=== PATIENT | female | born 1940 | race Caucasian/White ===

== ENCOUNTER 2017-09-12 14:36 | Emergency (ER) | payer MEDICARE, OTHER ==
[~2017-09-12] VITALS: Ht 170.2 cm; Wt 69.8 kg
[~2017-09-12 14:36] MED LIST: ALLEGRA-D 12 HOU1 EA PO; CYCLOBENZAPRINE5 MG PO; CYMBALTA20 MG PO; CYMBALTA60 MG PO; DOMPERIDONE PO; ESTROGEN; HCTZ/TRIAMTERENE; LORAZEPAM1 MG PO; METOPROLOL TART25 MG PO; NEXIUM20 MG PO; NORCO 5-325 TA1 EACH PO; OMEGA-31000 MG PO; PAIN MED; VOLTAREN-XR100 MG PO; ZANTAC 7575 MG PO; ZANTAC150 MG PO
--- NOTE | 2017-09-13 21:54 | EKG ---
[facility] [address] [facility] [place] [address] Signed Poor data quality, interpretation may be adversely affected Normal ECG When compared with ECG of 09-SEP-2016 20:47, Vent. rate has decreased BY 49 BPM Minimal criteria for Anterior infarct are no longer present ST no longer depressed in Anterior leads Confirmed by MARIYA RAMOS MD ([id number]) on 09/13/2017 9:54:01 PM Electronically Signed By: MARIYA RAMOS MD 09/13/17 2154 PATIENT NAME: NATHAN DURÁN Electrocardiogram DATE OF : 40 PHYSICIAN: MARIYA RAMOS MD REPORT #: [id number] REPORT IS CONFIDENTIAL AND NOT TO BE RELEASED WITHOUT AUTHORIZATION
== END 2017-09-12 17:52 | disposition home or self-care (01) ==
LOC: ED 14:36
DX: R55 Syncope and collapse (principal); K21.9 Gastro-esophageal reflux disease without esophagitis; F32.9 Major depressive disorder, single episode, unspecified; F41.9 Anxiety disorder, unspecified; Z88.1 Allergy status to other antibiotic agents; Z88.2 Allergy status to sulfonamides; Z88.5 Allergy status to narcotic agent; Z79.899 Other long term (current) drug therapy
CPT/HCPCS: 71045; 80053; 81001; 84484; 85025; 93005; 93010; 96360; 96361; 99284; J7120

== ENCOUNTER 2017-10-05 11:31 | Emergency (ER) | payer MEDICARE, OTHER ==
[~2017-10-05] VITALS: Ht 170.2 cm; Wt 69.8 kg
== END 2017-10-05 12:15 | disposition home or self-care (01) ==
LOC: ED 11:31
DX: R47.02 Dysphasia (principal); K21.9 Gastro-esophageal reflux disease without esophagitis; Z88.1 Allergy status to other antibiotic agents; Z88.2 Allergy status to sulfonamides; Z88.5 Allergy status to narcotic agent; Z79.899 Other long term (current) drug therapy
CPT/HCPCS: 99283

== ENCOUNTER 2018-09-07 06:20 | Day surgery (SDC) | payer MEDICARE, OTHER ==
[~2018-09-07] VITALS: Ht 170.2 cm; Wt 70.3 kg
--- NOTE | ~2018-09-07 | OR ---
[facility] [address] [place], [place] [address] Draft DATE OF OPERATION: 09/07/2018 SURGEON: Lucas Miller MD PREOPERATIVE DIAGNOSIS: Right medial infiltrating ductal breast cancer, ER/MO positive. POSTOPERATIVE DIAGNOSES: 1. Right medial infiltrating ductal breast cancer, ER/MO positive. 2. [place] lymph node negative by frozen pathology. PROCEDURES PERFORMED: 1. Injection of methylene blue dye for sentinel lymph node identification, right breast. 2. Right deep axillary sentinel lymph node biopsy. 3. Right medial partial mastectomy with needle localization technique. ANESTHESIA: General LMA; Lucas Moody CRNA. INDICATION: This 78-year-old white woman is a patient of Dr. Santos and recently evaluated by Dr. Edilia Ferreira. She is the mother of a former worker in [employer] (Shanika). The patient is known to have breast cyst for a number of years. She has undergone bilateral breast reduction (reduction mammoplasty). She has had a biopsy or excision of cysts of the breast in the in [place]. She recently underwent mammogram showing an abnormality in the medial aspect of the right breast. Ultrasound performed and core biopsy confirmed infiltrating ductal carcinoma, ER/MO positive, HER-2/olivia pending. She has been presented her options of management and she wishes to proceed with a conservative approach including partial mastectomy, sentinel lymph node biopsy, possible axillary dissection and subsequent radiation therapy. She understands risks of bleeding, infection, failure to completely excise the lesion, and other unforeseen complications. She wishes to proceed. FINDINGS: Good uptake of radionuclide tracer to a single relatively large right axillary node was noted. There is only slight uptake of blue dye to the area surprisingly. Additionally, it was surprising there was essentially no other uptake, rather regional lymph nodes in the right axilla. PATIENT NAME: NATHAN DURÁN OPERATIVE REPORT DATE OF : 40 REPORT #: [id number] PHYSICIAN: LUCAS MILLER MD PCP: JOANA SANTOS DO REPORT IS CONFIDENTIAL AND NOT TO BE RELEASED WITHOUT AUTHORIZATION [facility] [address] [place], [place] [address] Draft As regards to primary lesion, it was in the medial portion of the right breast and was located with wide excision of the localizing wire and confirmed on specimen radiograph and specimen ultrasound to have the offending lesion well excised. DESCRIPTION OF PROCEDURE: The patient was brought to the operating room after being received from radiology suite with a localizing wire emanating from the inferior aspect of the right breast in the previous incision site. She was given a general anesthetic and preoperative antibiotics including clindamycin. Sequential compression device stockings and heparin subcutaneously administered. Interrogation of the axilla and breast tissue with a C-Trak Gamma Probe showed strong uptake at the areolar area as would be expected but also intensely in one focus of the right axilla. Comparison to imaging studies confirmed this to be the area of sentinel lymph node of course. 1.5 mL of 50% diluted methylene blue dye was injected in the subepithelial space in the right periareolar margin. The breast was then prepared with a Betadine spray solution after trimming the localizing wire to a shorter length. After sterile draping, the gamma probe was placed in a sterile cover and the area of maximum uptake determined in the right axilla. A small transverse incision was made there and dissection carried through the dermis with electrocautery. Blunt dissection was undertaken ultimately using [facility] retractors to better visualize the axilla through the small incision. The gamma probe was placed once again into the depths of the axilla showing strong uptake. Dissection proceeded with use of a tonsil clamp. There was no strong uptake of methylene blue dye despite its administration previously, but the gamma probe certainly allow for good visualization of the tissue in question. The specimen in the depths of the axilla was grasped with Allis clamp and dissected free with electrocautery. Once extracted interrogated with the gamma probe showing intense uptake and the dissection of the fatty tissue surrounding was and small lists of blue dye were also noted associated with the node. The node was about 1.5 cm in size. The sent for frozen pathology. Interrogation of the right axilla was undertaken again. There was essentially no radio nuclear uptake at this point. Irrigation was undertaken and the wound was then packed with gauze. Attention was then turned towards the primary breast tumor in the medial aspect of the right breast. The wire emanated from the medial aspect in a previous inframammary scar. With various manipulations, the extent of the wire in its medial aspect could be defined. The previous scar was used in the medial portion and flaps elevated superiorly and medially and the wire delivered into the wound. The parenchyma of the breast was grasped with an Allis clamp and electrocautery was used to excise the breast tissue with all due care and with generous margins to provide a negative margin for the lesion in question. Once excised. Palpation of the lesion of the specimen did show the lesion to be associated with the. The specimen was appropriately marked for PATIENT NAME: NATHAN DURÁN OPERATIVE REPORT DATE OF : 40 REPORT #: [id number] PHYSICIAN: LUCAS MILLER MD PCP: JOANA SANTOS DO REPORT IS CONFIDENTIAL AND NOT TO BE RELEASED WITHOUT AUTHORIZATION [facility] [address] [place], [place] [address] Draft orientation as well. Irrigation was undertaken in the wound. Some additional thick tissue over the pectoralis was excised as well as additional tissue in the medial superior aspect. Sterile water was used for irrigation. Minimal bleeding was noted. Notably, the parenchyma of the breast was rather firm and fibrous. No doubt related to prior breast reduction. The parenchyma was reapproximated with interrupted 2-0 Vicryl. Skin ultimately closed with a running subcuticular 3-0 Vicryl. At this point, the frozen pathology of the sentinel lymph node was determined by Dr. Zaid Blair to be negative of metastatic disease. Evaluation of the axilla showed no sign of bleeding. The wound was closed in layers with interrupted 2-0 Vicryl and a running subcuticular 3-0 Vicryl for the skin. Steri-Strips were applied to both incisions as was Mepilex silver sponge dressing and an OpSite. The patient tolerated the procedure well, was ultimately extubated and transferred to recovery room in good condition and suffered no complication. COUNTS: Sponge, needle, and instruments counts reported as correct x3. BLOOD LOSS: Well less than 20 mL. MD MARTINE Gregg/TRACI /[id number] Copies: ~ PATIENT NAME: NATHAN DURÁN OPERATIVE REPORT DATE OF : 40 REPORT #: [id number] PHYSICIAN: LUCAS MILLER MD PCP: JOANA SANTOS DO REPORT IS CONFIDENTIAL AND NOT TO BE RELEASED WITHOUT AUTHORIZATION
[~2018-09-07 06:20] MED LIST changes: +DICYCLOMINE HCL10 MG PO
[2018-09-07] MEDS ORDERED: IMODIUM A-D2 M2 PO ×2 (06:36→06:38)
--- NOTE | 2018-09-07 07:07 | NUR ---
3156 PT COMPLAINS OF NASAL CONGESTION AND DRAINAGE. REPORTS HAVING CONGESTION AND DRAINAGE FOR 3 WEEKS BUT IS FEELING BETTER TODAY. LUNGS CLEAR TO AUSCULTATION. DENIES CHEST PAIN.
--- NOTE | 2018-09-07 07:10 | NUR ---
0700 CONGESTION REPORTED TO ANESTHESIA
--- NOTE | 2018-09-07 10:32 | NUR ---
0515 PT BACK FROM RADIOLOGY TOLERATED WELL HELPED BACK IN BED. CALL LIGHT WITH IN REACH.
--- NOTE | 2018-09-07 10:32 | NUR ---
0730 PT TAKEN TO RADIOLOGY DEPT BY Aunt Kitchen VIA WHEELCHAIR.
--- NOTE | 2018-09-07 13:01 | NUR ---
09/07/18 1300 Sheets,Gilda 1253 PT ARRIVED TO PACU ON 6L VIA MASK, RESP EVEN AND UNLABORED. PT REACTIVE TO TACTILE STIMULI, PT UNABLE TO ANSWER QUESTIONS OR FOLLOW COMMANDS. PT RESTING IN BED WITH NO MOANING OR GRIMACING AT THIS TIME.
[2018-09-07] MEDS ORDERED: TYLENOL325 MG PO (13:16)
[2018-09-07] MEDS ORDERED: OXYCODON-ACETA1 EAC2 PO (13:16)
[2018-09-07] MEDS ORDERED: IBUPROFEN600 MG PO (13:16)
--- NOTE | 2018-09-07 14:27 | NUR ---
1405 PT BACK TO ROOM FROM PACU AWAKE AND TALKING. REPORTS PAIN 2/10 REPORTS BEING COMFORTABLE. DRESSING CDI. PT TAKING SIPS OF WATER TOLERATES WELL.
--- NOTE | 2018-09-07 14:31 | NUR ---
1431 PT EATING PUDDING AND JELLO TOLERATES WELL.
--- NOTE | 2018-09-07 15:34 | NUR ---
1500 PT UP THE THE BATHROOM WITH ASSIST, SHE WAS ABLE TO VOID 500ML LIGHT YELLOW URINE.
--- NOTE | 2018-09-07 15:35 | NUR ---
1515 DISCHARGE INSTRUCTIONS GIVEN TO PT AND DAUGHTER BOTH VOICED UNDERSTANDING. DRESSING CLEAN AND DRY. PT DENIES PAIN AND NAUSEA.
--- NOTE | 2018-09-07 15:37 | NUR ---
1420 100ML OF LR GIVEN IN DAY SURGERY.
== END 2018-09-07 15:20 | disposition home or self-care (01) ==
LOC: DS 06:20 → EDSTATUS 07:30 → US 07:30 → DS 15:20
PROVIDERS: Surgery
PROC: 0HBT0ZZ Excision of Right Breast, Open Approach (ICD-10-PCS; principal; 2018-09-07 08:30)
PROC: 07B50ZX Excision of Right Axillary Lymphatic, Open Approach, Diagnostic (ICD-10-PCS; 2018-09-07 08:30)
DX: C50.311 Malignant neoplasm of lower-inner quadrant of right female breast (principal); N60.11 Diffuse cystic mastopathy of right breast; E03.9 Hypothyroidism, unspecified; K21.9 Gastro-esophageal reflux disease without esophagitis; K21.0 Gastro-esophageal reflux disease with esophagitis; M54.9 Dorsalgia, unspecified; F32.9 Major depressive disorder, single episode, unspecified; G89.29 Other chronic pain; Z17.0 Estrogen receptor positive status [ER+]; Z88.5 Allergy status to narcotic agent; Z88.1 Allergy status to other antibiotic agents; Z98.890 Other specified postprocedural states
CPT/HCPCS: 00404; 76942; 76970; 77065; 78195; 88307; 88341; 88342; A9541; J1100; J1644; J1885; J2250; J2405; J2704; J2765; J3010; J7060; J7120; Q9968

== ENCOUNTER 2018-12-14 17:20 | Observation (INO) | payer MEDICARE, OTHER ==
[~2018-12-14] VITALS: Ht 170.2 cm; Wt 73.0 kg
[~2018-12-14 17:20] MED LIST changes: +BIOTIN10000 MC1 PO; +FLECTOR1 EACH TOP; +IBUPROFEN600 MG PO; +IMODIUM A-D2 M2 PO; +LEVOTHYROXINE50 MCG PO; +OXYCODON-ACETA1 EAC2 PO; +RESTASIS MULTI5.5 ML OP; +SYSTANE 0.3-0.415 ML OPTH; +TIROSINT50 MCG PO; +TYLENOL325 MG PO
--- NOTE | 2018-12-14 21:00 | NUR ---
PT ARRIVES TO MS VIA STRETCHER. SBA IN ROOM. PT DENIES SOB. CONGESTION NOTED, PT REQUESTING ALLERGY MEDICATION AND PAIN MEDICATION, MD TO ORDER. RATES PAIN 3/10 IN RIGHT SHOULDER, CHRONIC. VSS, SPO2 WNL ON RA. ASSESSMENT COMPLETE. SBA TO RESTROOM FOR VOID. ATTENDS IN PLACE. ORAL CARE COMPLETE. IV FLUSHED WNL, IV ANTIBIOTIC INFUSING WNL. ORIENTATION TO ROOM AND CALL LIGHT PROVIDED. PT VERBALIZES UNDERSTANDING TO USE CALL LIGHT BEFORE GETTING OUT OF BED.
--- NOTE | 2018-12-14 22:04 | EKG ---
[facility] [address] [facility] [place] [address] Signed Sinus tachycardia Low voltage QRS Nonspecific T wave abnormality Abnormal ECG When compared with ECG of 28-JAN-2018 19:18, Vent. rate has increased BY 48 BPM Non-specific change in ST segment in Lateral leads Nonspecific T wave abnormality now evident in Anterolateral leads Confirmed by MARIYA RAMOS MD ([id number]) on 12/14/2018 10:04:23 PM Electronically Signed By: MARIYA RAMOS MD 12/14/18 2204 PATIENT NAME: NATHAN DURÁN Electrocardiogram DATE OF : 40 PHYSICIAN: MARIYA RAMOS MD REPORT #: [id number] REPORT IS CONFIDENTIAL AND NOT TO BE RELEASED WITHOUT AUTHORIZATION
--- NOTE | 2018-12-14 22:04 | EKG ---
[facility] [address] [facility] [place] [address] Signed Sinus tachycardia Nonspecific T wave abnormality Abnormal ECG When compared with ECG of 14-DEC-2018 17:33, (Unconfirmed) Nonspecific T wave abnormality now evident in Inferior leads Confirmed by MARIYA RAMOS MD ([id number]) on 12/14/2018 10:04:32 PM Electronically Signed By: MARIYA RAMOS MD 12/14/18 2204 PATIENT NAME: NATHAN DURÁN Electrocardiogram DATE OF : 40 PHYSICIAN: MARIYA RAMOS MD REPORT #: [id number] REPORT IS CONFIDENTIAL AND NOT TO BE RELEASED WITHOUT AUTHORIZATION
--- NOTE | 2018-12-14 22:41 | NUR ---
PT RESTING IN BED ON TELEPHONE. IV ANTIBIOTIC INFUSION COMPLETE. IVF INFUSING WNL ORDERED. SCDS ON. CALL LIGHT IN REACH. LIGHTS OFF IN ROOM.
--- NOTE | 2018-12-14 23:06 | NUR ---
VSS. PT RESTING IN BED. SCDS ON. CALL LIGHT IN REACH. NO REQUESTS AT THIS TIME.
--- NOTE | 2018-12-15 00:18 | NUR ---
IV ALARM SOUNDING. PT HAD BENT HER RIGHT ARM. ADJUSTED IV INFUSING. PT DID NOT WAKE, DID STIR, RESP 16 EVEN AND UNLABORED, SKIN WARM AND DRY. CALL LIGHT WITHIN REACH, SCD'S IN PLACE
--- NOTE | 2018-12-15 00:55 | NUR ---
PT SLEEPING, AWAKENS TO VOICE. VSS. CALL LIGHT IN REACH. SCDS ON.
--- NOTE | 2018-12-15 02:39 | NUR ---
CALL LIGHT ANSWERED. PT C/O NUMBNESS IN LEFT HIP DOWN TO KNEE. SBA TO AMBULATE AROUND ROOM, GAIT STEADY. SBA TO RESTROOM FOR VOID AND BACK TO BED. PT STATES NUMBNESS IN LEFT LEG HAS RESOLVED. ASSESSMENT COMPLETE. LUNGS CLEAR THROUGHOUT ALL LOBES. PT DENIES PAIN. VSS. CALL LIGHT IN REACH. LIGHTS OFF IN ROOM. PT REQUESTING BREAK FROM SCDS AT THIS TIME.
--- NOTE | 2018-12-15 05:38 | NUR ---
PT AFEBRILE, VSS. IVF AND IV ANTIBIOTIC INFUSING WNL ORDERED. SBA TO RESTROOM, QS VOIDS, BM. USING CALL LIGHT APPROPRIATELY. CHRONIC PAIN WELL CONTROLLED WITH PRN IBUPROFEN. SCDS IN PLACE. RESTED WELL THIS SHIFT.
--- NOTE | 2018-12-15 05:44 | NUR ---
IV PUMP ALARMING. PATIENT AWAKE, TOILETING OFFERED. PATIENT UP TO USE BATHROOM SBA. PATIENT BACK IN BED. IV INFUSING WNL. PATIENT DENIES PAIN. CALL LIGHT WITHIN REACH.
--- NOTE | 2018-12-15 07:00 | NUR ---
BEDSIDE HANDOFF REPORT RECEIVED FROM MANAGER EPIC RN. PT SLEEPING, LEFT UNDISTURBED.
--- NOTE | 2018-12-15 08:32 | NUR ---
PT SBA TO BATHROOM AND THEN TO CHAIR. PT ON ROOM AIR, LUNG SOUNDS CLEAR, DENIES SOB. PT DENIES PAIN. PT REPORT OF NUMBNESS TO RIGHT ARM FROM ELBOW TO FINGERS, AT BASELINE, CMS OTHERWISE INTACT. IV FLUIDS INFUSING LR AT 100 ML/HR, IV FLUSHED, PATENT. PT BLOOD PRESSURE 100/49, METOPROLOL HELD AT THIS TIME. PT PLANNING TO DC TODAY, DISCUSSED WITH PT. PT DENIES OTHER NEEDS AT THIS TIME.
[2018-12-15] MEDS ORDERED: CEPHALEXIN500 MG PO (10:07)
--- NOTE | 2018-12-15 13:18 | NUR ---
PT DRESSED, WAITING FOR DC. SHE IS PLEASANT,AND WELCOMED ME INTO HER RM. SHE SAID RIGHT OFF THAT SHE WAS PLEASED WITH HER CARE, AND THAT THE PHARMACIST HAD JUST BEEN IN. SHE ALSO STATED THAT SHE TOLD THE DR THAT SHE IS GETTING ON A PLANE TOMORROW TO [facility], AND THEN DRIVING BACK WITH HER DAUGHTER ON THURSDAY. PT STATED THIS WITH SPIRIT! HAD PRAYER, WILL FOLLOW NEEDED
== END 2018-12-15 11:25 | disposition home or self-care (01) ==
LOC: ED 17:20 → MS 17:22
PROVIDERS: ADMIT Internal Medicine
DX: R50.9 Fever, unspecified (principal); C50.911 Malignant neoplasm of unspecified site of right female breast; I10 Essential (primary) hypertension; F32.9 Major depressive disorder, single episode, unspecified; K21.9 Gastro-esophageal reflux disease without esophagitis; F41.9 Anxiety disorder, unspecified; Z86.79 Personal history of other diseases of the circulatory system; Z79.1 Long term (current) use of non-steroidal anti-inflammatories (NSAID); Z79.899 Other long term (current) drug therapy; Z88.5 Allergy status to narcotic agent; Z88.2 Allergy status to sulfonamides
CPT/HCPCS: 36415; 51701; 71045; 80053; 81001; 83605; 83735; 84443; 84484; 85007; 85025; 85032; 93005; 93010; 96365; 99285-25; G0378; J0696; J7030; J7120

== ENCOUNTER 2019-11-25 15:13 | Emergency (ER) | payer MEDICARE, OTHER ==
[~2019-11-25] VITALS: Ht 170.2 cm; Wt 71.2 kg
--- OUTSIDE RECORDS SUMMARY | ~2019-11-25 | XMS | Encounter Summary ---
Demographics + + + | Address | [address] | | | [place] [address] | + + + | Home Phone | | + + + | Preferred Language | Unknown | + + + | Marital Status | | + + + | Caodaism Affiliation | Unknown | + + + | Race | Unknown | + + + | Ethnic Group | Unknown | + + + Author + + + | Author | [facility] | | | and [place] | + + + | Organization | [facility] | | | and [place] | + + + | Address | Unknown | + + + | Phone | Unavailable | + + + Support + + +---------+ + | Name | Relationship | Address | Phone | + + +---------+ + | Casandra Winston | ECON | Unknown | | + + +---------+ + | Katherin Cole | ECON | Unknown | | + + +---------+ + Care Team Providers + +------+ + | Care Wellness Nurse Name | Role | Phone | + +------+ + | Gopal Hill DO | PCP | | + +------+ + Encounter Details +--------+ + + + + | Date | Type | Department | Care Team | Description | +--------+ + + + + | 10/11/ | Abstract | [facility] | Tara Evelyne | | | 2018 | | [facility] | MD [facility] [address] | | | | | [facility] [address] | [place], [place] | | | | | [address] | [address] | | | | | [place] [address] | | | | | | [phone] | | | +--------+ + + + + Social History + +-------+ +--------+------+ | Tobacco Use | Types | Packs/Day | Years | Date | | | | | Used | | + +-------+ +--------+------+ | Never Assessed | | | | | + +-------+ +--------+------+ + + + | Sex Assigned at | Date Recorded | | | | + + + | Not on file | | + + + documented as of this encounter Plan of Treatment +--------+ + + + + | Date | Type | Specialty | Care Team | Description | +--------+ + + + + | 01/10/ | Appointment | Radiation Oncology | Yarely Jonas | | | 2019 | | | [facility] [place] [address] | | | | | | [place] | | | | | | [place] [address] | | | | | | [phone] | | | | | | | | +--------+ + + + + documented as of this encounter Visit Diagnoses Not on filedocumented in this encounter"
--- OUTSIDE RECORDS SUMMARY | ~2019-11-25 | XMS | Encounter Summary ---
Demographics + + + | Address | [address] | | | [place] [address] | + + + | Home Phone | | + + + | Preferred Language | Unknown | + + + | Marital Status | | + + + | Jew Affiliation | Unknown | + + + | Race | Unknown | + + + | Ethnic Group | Unknown | + + + Author + + + | Author | [facility] | | | and [place] | + + + | Organization | [facility] | | | [...] Team Providers + +------+ + | Care Poll Watcher Name | Role | Phone | + +------+ + PCP | Unavailable | + +------+ + Encounter Details +--------+ + + + + | Date | Type | Department | Care Team | Description | +--------+ + + + + | 08/26/ | Hospital | [facility] | Conversion | Neck pain; | | 2012 | Encounter | [facility] | Transaction, | Numbness | | | | [address] | Provider Unknown | | | | | [place], [place] | | | | | | [address] | (Fax) | | | | | [phone] | | | +--------+ + + + [...] Oncology | Yarely Jonas | | | 2020 | | | [place] [address] | | | | | | [place] | | | | | | [place] [address] | | | | | | [phone] | | | | | | | | +--------+ + + + + documented as of this encounter Procedures + +--------+ + + + | Procedure Name | Priori | Date/Time | Associated Diagnosis | Comments | | | ty | | | | + +--------+ + + + | MRI THORACIC SPINE | Routin | 12/06/2012 | | Results for this | | WO CONTRAST | e | 12:31 PM | | procedure are in the | | | | PDT | | results section. | + +--------+ + + + documented in this encounter Results MRI Thoracic Spine wo Contrast (12/06/2012 12:31 PM PDT) + + | Specimen | + + | | + + + + + | Narrative | Performed At | + + + | NATHAN DURÁN MRI THORACIC SPINE WO CONTRAST 12/06/2012 10:52 AM | | | HISTORY: Back pain. TECHNIQUE: Multiplanar MR imaging was | | | performed through the thoracic spine without gadolinium. FINDINGS: | | | Compared with October 13, 2012. There is mild curvature of the | | | thoracic spine. This would suggest some degree of scoliosis. Would | | | correlate x-rays if there is further concern. There is mild to | | | moderate diffuse degenerative disk disease throughout the thoracic | | | spine. There is significant artifact overlying the thoracic spinal | | | cord. There is a tiny central disk protrusion at T5/6 with minor | | | mass effect. There are tiny bilateral paracentral disk protrusions | | | at T7/8, with minor mass effect. At T12/L1 there is a small right | | | paracentral disk protrusion with only mild mass-effect. | | | Degenerative facet disease is present at multiple levels. | | | IMPRESSION: 1. Small disk protrusions the thoracic spine, with a | | | low likelihood of nerve root impingement in view of their small sizes, | | | as above. 2. Degenerative disk disease and probable scoliosis. | | | | | | PM | | + + + + + | Procedure Note | + + | Alessandro, Rad Conversion - 12/03/2018 6:59 PM [facility] THORACIC SPINE WO | | CONTRAST12/06/2012 10:52 AM HISTORY:Back pain. TECHNIQUE:Multiplanar MR imaging was | | performed through the thoracic spine without gadolinium. FINDINGS:Compared with October 13, | | 2012. There is mild curvature of the thoracic spine. This would suggest some degree of | | scoliosis. Would correlate x-rays if there is further concern. There is mild to | | moderate diffuse degenerative disk disease throughout the thoracic spine. There is | | significant artifact overlying the thoracic spinal cord. There is a tiny central disk | | protrusion at T5/6 with minor mass effect. There are tiny bilateral paracentral disk | | protrusions at T7/8, with minor mass effect. At T12/L1 there is a small right | | paracentral disk protrusion with only mild mass-effect. Degenerative facet disease is | | present at multiple levels. IMPRESSION:1. Small disk protrusions the thoracic spine, | | with a low likelihood of nerve root impingement in view of their small sizes, as | | above.2. Degenerative disk disease and probable scoliosis. | |significant artifact overlying the thoracic spinal cord. | | | |There is a tiny central disk protrusion at T5/6 with minor mass effect. There are tiny leslie ateral paracentral disk protrusions at T7/8, with minor mass effect. At T12/L1 there is a s mall right paracentral disk protrusion with only mild mass-effect. | |Degenerative facet disease is present at multiple levels. | | | |IMPRESSION: | |1. Small disk protrusions the thoracic spine, with a low likelihood of nerve root impingem ent in view of their small sizes, as above. | |2. Degenerative disk disease and probable scoliosis. | | | | | + + documented in this encounter Visit Diagnoses + + | Diagnosis | + + | Neck pain Cervicalgia | + + | Numbness Disturbance of skin sensation | + + documented in this encounter"
--- OUTSIDE RECORDS SUMMARY | ~2019-11-25 | XMS | Encounter Summary ---
Demographics + + + | Address | [address] | | | [place] [address] | + + + | Home Phone | | + + + | Preferred Language | Unknown | + + + | Marital Status | | + + + | Episcopalian Affiliation | Unknown | + + + | Race | Unknown | + + + | Ethnic Group | Unknown | + + + Author + + + | Author | [facility] | | | and [place] | + + + | Organization | [facility] | | | and [...] Team Providers + +------+ + | Care Water Tender Name | Role | Phone | + +------+ + | Gopal Hill DO | PCP | | + +------+ + Reason for Visit +--------+--------+ + | Reason | Onset | Comments | | | Date | | +--------+--------+ + | Other | 09/20/ | | | | 2020 | | +--------+--------+ + Encounter Details +--------+ + + + + | Date | Type | Department | Care Team | Description | +--------+ + + + + | 09/20/ | Telephone | [facility] | Evelyne Pacheco | Other | | 2020 | | [facility] RAD[facility]ATION | MD [place] [address] | | | | | ONCOLOGY CLINIC [address] | [place], [place] | | | | | [facility] | [address] | | | | | [place] [address] | | | | | | [phone] | | | +--------+ + + + + Social History + +-------+ +--------+------+ | Tobacco Use | Types | Packs/Day | Years | Date | | | | | Used | | + +-------+ +--------+------+ | Never Smoker | | | | | + +-------+ +--------+------+ + +---+---+---+ | Smokeless Tobacco: | | | | | Never Used | | | | + +---+---+---+ + + +---------+ + | Alcohol Use | Drinks/Week | oz/Week | Comments | + + +---------+ + | Yes | | | Occassionally | + + +---------+ + + + + | Sex Assigned at | Date Recorded | | | | + + + | Not on file | | + + + documented as of this encounter Miscellaneous Notes Telephone Encounter - BelénYvonnePenny RUDDY Peck - 09/21/2019 11:14 AM PDTRose had a right breas t US ordered that was to be performed at [facility]. I called them today and Azalia has not h ad this done. They state they do not have the order for this anymore. I faxed the orders wit h confirmation received and spoke with Naomi again to let her know orders were sent. She sta nam Vieyra is scheduled for a mammogram on 09/26/19 so they will watch for the orders to come a cross and get that US done while she is there on the . documented in this encounter Plan of Treatment +--------+ + + + + | Date | Type | Specialty | Care Team | Description | +--------+ + + + + | 01/10/ | Appointment | Radiation Oncology | Yarely Jonas | | 2019 | | | [place] [address] | | | | | | [place] | | | | | | [place] [address] | | | | | | [phone] | | | | | | | | +--------+ + + + + documented as of this encounter Visit Diagnoses Not on filedocumented in this encounter"
--- OUTSIDE RECORDS SUMMARY | ~2019-11-25 | XMS | Encounter Summary ---
Demographics + + + | Address | [address] | | | [place] [address] | + + + | Home Phone | | + + + | Preferred Language | Unknown | + + + | Marital Status | | + + + | Sikh Affiliation | Unknown | + + + | Race | Unknown | + + + | Ethnic Group | Unknown | + + + Author + + + | Author | [facility] | | | and [place] | + + + | Organization | [facility] | | [...] Team Providers + +------+ + | Care Butadiene Converter Helper Name | Role | Phone | + +------+ + | Gopal Hill DO | PCP | | + +------+ + Encounter Details +--------+ + + + + | Date | Type | Department | Care Team | Description | +--------+ + + + + | 11/16/ | Documentati | [facility] | Adeola Dorantes | | | 2019 | on | MED CNT ONCOLOGY | A, OT | | | | | THERAPY [address] | | | | | | [place], | | | | | | [place] [address] | | | | | | [phone] | | | +--------+ + + + [...] + + documented as of this encounter Progress Notes Adeola Dorantes, OT - 11/16/2018 2:[facility] [address] [facility] [address] Oncology Rehab Screening Date: 11/16/2018 Patient Information Patient Name: Azalia Marks Date of : 1940 Age: 78 y.o. Patient was seen for follow up oncology rehab visit due to patient request. Patient reporte d having area of edema on most medial aspect of R breast. Instructed patient on tissue mass age and MLM for this area. Also provided with foam insert for patient to use in bra for gre ater compression for this area. Patient demo'd good understanding with no further questions at this time. Patient to contact therapist or doctor if change in status. Electronically signed by: Adeola Dorantes OT, 11/16/2018 14:46 Patient Name: Azalia Marks/: 1940/ documented in this encounter Plan of Treatment [...] | | | | | [place] [address] | | | | | | [phone] | | | | | | | | +--------+ + + + + documented as of this encounter Visit Diagnoses Not on filedocumented in this encounter"
--- OUTSIDE RECORDS SUMMARY | ~2019-11-25 | XMS | Encounter Summary ---
Demographics + + + | Address | [address] | | | [place] [address] | + + + | Home Phone | | + + + | Preferred Language | Unknown | + + + | Marital Status | | + + + | Temple Affiliation | Unknown | + + + | Race | Unknown | + + + | Ethnic Group | Unknown | + + + Author + + + | Author | [facility] | | | and [place] | + + + | Organization | [facility] | | | [...] Team Providers + +------+ + | Care Cnc Service Engineer Name | Role | Phone | + +------+ + | Gopal Hill DO | PCP | | + +------+ + Encounter Details +--------+ + + + + | Date | Type | Department | Care Team | Description | +--------+ + + + + | 11/11/ | Hospital | [facility] | Freddie Shaffer DO | Cancer of right | | 2019 | Encounter | MED CTR RADIATION | [address] | breast, stage 1, | | | | ONCOLOGY CLINIC [address] | [place] | estrogen receptor | | | | [address] | [address] | positive (HCC) | | | | [place] [address] | | (Primary Dx) | | | | [phone] | | | +--------+ + + + [...] + + documented as of this encounter Last Filed Vital Signs + + + + + | Vital Sign | Reading | Time Taken | Comments | + + + + + | Blood Pressure | 111/57 | 11/11/2018 2:50 PM | | | | | PDT | | + + + + + | Pulse | 70 | 11/11/2018 2:50 PM | | | | | PDT | | + + + + + | Temperature | 36.4 C (97.5 F) | 11/11/2018 2:50 PM | | | | | PDT | | + + + + + | Respiratory Rate | 18 | 11/11/2018 2:50 PM | | | | | PDT | | + + + + + | Oxygen Saturation | 96% | 11/11/2018 2:50 PM | | | | | PDT | | + + + + + | Inhaled Oxygen | - | - | | | Concentration | | | | + + + + + | Weight | 70.9 kg (156 lb 4.9 | 11/11/2018 2:50 PM | | | | oz) | PDT | | + + + + + | Height | - | - | | + + + + + | Body Mass Index | 24.82 | 10/12/2018 1:30 PM | | | | | PDT | | + + + + + documented in this encounter Medications at Time of Discharge + + + +---------+--------+ + | Medication | Sig | Dispensed | Refills | Start | End Date | | | | | | Date | | + + + +---------+--------+ + | Ascorbic Acid | Take 1,000 mg by | | 0 | | | | (VITAMIN C) 1000 MG | mouth Daily. | | | | | | tablet | | | | | | + + + +---------+--------+ + | aspirin 81 mg EC | Take 81 mg by mouth | | 0 | | | | tablet | Daily. | | | | | + + + +---------+--------+ + | Biotin 25269 MCG | Take 1 tablet by | | 0 | | | | TABS | mouth 2 times daily. | | | | | + + + +---------+--------+ + | | Apply to eye. | | 0 | | | | Carboxymeth-Glycerin | | | | | | | -Polysorb (REFRESH | | | | | | | OPTIVE CARINA-3 OP) | | | | | | + + + +---------+--------+ + | celecoxib | Take 100 mg by mouth | | 0 | | | | (CELEBREX) 100 mg | Daily. | | | | | | capsule | | | | | | + + + +---------+--------+ + | cetirizine | Take 10 mg by mouth | | 0 | | | | (ZYRTEC) 10 mg | Daily. | | | | | | tablet | | | | | | + + + +---------+--------+ + | cholecalciferol | Take 5,000 Units by | | 0 | | | | (VITAMIN D-3) 5000 | mouth Daily. | | | | | | units TABS | | | | | | + + + +---------+--------+ + | Cyanocobalamin | Take 100 mg by mouth | | 0 | | | | (VITAMIN B 12 PO) | 2 times daily. | | | | | + + + +---------+--------+ + | cycloSPORINE | Apply to eye 2 | | 0 | | | | (RESTASIS OP) | times daily. | | | | | + + + +---------+--------+ + | diclofenac | Place 1 patch onto | | 0 | | | | (FLECTOR) 1.3% PTCH | the skin 2 times | | | | | | | daily. | | | | | + + + +---------+--------+ + | dicyclomine | Take 10 mg by mouth | | 0 | | | | (BENTYL) 10 mg | every 8 hours as | | | | | | capsule | needed. | | | | | + + + +---------+--------+ + | domperidone 10 mg | Take 10 mg by mouth | | 0 | | | | capsule | 3 times daily | | | | | | | (before meals). | | | | | + + + +---------+--------+ + | esomeprazole | Take 40 mg by mouth | | 0 | | | | (NEXIUM) 40 mg | every morning | | | | | | capsule | (before breakfast). | | | | | + + + +---------+--------+ + | ferrous sulfate | Take 325 mg by mouth | | 0 | | | | 325 mg tablet | daily (with | | | | | | | breakfast). | | | | | + + + +---------+--------+ + | fish oil 1,000 mg | Take 1,000 mg by | | 0 | | | | capsule | mouth Daily. | | | | | + + + +---------+--------+ + | levothyroxine | Take 50 mcg by mouth | | 0 | | | | (SYNTHROID) 50 mcg | every morning | | | | | | tablet | (before breakfast). | | | | | + + + +---------+--------+ + | loperamide | Take 2 mg by mouth 4 | | 0 | | | | (IMODIUM) 2 mg | times daily as | | | | | | capsule | needed for Diarrhea. | | | | | + + + +---------+--------+ + | metoprolol | Take 25 mg by mouth | | 0 | | | | succinate | 2 times daily. | | | | | | (TOPROL-XL) 25 mg 24 | | | | | | | hr tablet | | | | | | + + + +---------+--------+ + | Multiple | Take 1 tablet by | | 0 | | | | Vitamins-Minerals | mouth Daily. | | | | | | (AIRBORNE) CHEW | | | | | | + + + +---------+--------+ + | Probiotic Product | Take 1 capsule by | | 0 | | | | (PROBIOTIC DAILY PO) | mouth Daily. | | | | | + + + +---------+--------+ + | raNITIdine | Take 150 mg by mouth | | 0 | | | | (RANITIDINE) 75 MG | 2 times daily. | | | | | | tablet | | | | | | + + + +---------+--------+ + | | Take 1 tablet by | | 0 | | | | triamterene-hydrochl | mouth Daily. | | | | | | orothiazide | | | | | | | (MAXZIDE) 75-50 mg | | | | | | | per tablet | | | | | | + + + +---------+--------+ + | VENLAFAXINE HCL PO | Take by mouth | | 0 | | | | | Daily. | | | | 9 | + + + +---------+--------+ + documented as of this encounter Progress Notes Freddie Shaffer DO - 11/11/2018 2:46 PM PDT Radiation Oncology Weekly On Treatment Note Diagnosis: ICD-10-CM ICD-9-CM 1. Cancer of right breast, stage 1, estrogen receptor positive (HCC) C50.911 174.9 Z17.0 V86.0 Reason for visit: On treatment evaluation Radiation technical factors: Dose Delivered Dose Planned Fractions Delivered 3192 cGy 4256 cGy 03/28 Setup was verified clinically on the treatment machine. Corrections were applied as necess phillip. Allergies Allergen Reactions Cephalexin Other (See Comments) PASS OUT Codeine Other (See Comments) "CRAZY" Propoxyphene Other (See Comments) HYPER Sulfa Antibiotics Rash Adhesive & Tape Itching Current Outpatient Medications on File Prior to Encounter Medication Sig Dispense Refill Ascorbic Acid (VITAMIN C) 1000 MG tablet Take 1,000 mg by mouth Daily. aspirin 81 mg EC tablet Take 81 mg by mouth Daily. Biotin 31564 MCG TABS Take 1 tablet by mouth 2 times daily. Iwvitllazhx-Ikuvqvix-Skvubuxf (REFRESH OPTIVE CARINA-3 OP) Apply to eye. celecoxib (CELEBREX) 100 mg capsule Take 100 mg by mouth Daily. cetirizine (ZYRTEC) 10 mg tablet Take 10 mg by mouth Daily. cholecalciferol (VITAMIN D-3) 5000 units TABS Take 5,000 Units by mouth Daily. Cyanocobalamin (VITAMIN B 12 PO) Take 100 mg by mouth 2 times daily. cycloSPORINE (RESTASIS OP) Apply to eye 2 times daily. diclofenac (FLECTOR) 1.3% PTCH Place 1 patch onto the skin 2 times daily. dicyclomine (BENTYL) 10 mg capsule Take 10 mg by mouth every 8 hours as needed. domperidone 10 mg capsule Take 10 mg by mouth 3 times daily (before meals). esomeprazole (NEXIUM) 40 mg capsule Take 40 mg by mouth every morning (before breakfast ). ferrous sulfate 325 mg tablet Take 325 mg by mouth daily (with breakfast). fish oil 1,000 mg capsule Take 1,000 mg by mouth Daily. levothyroxine (SYNTHROID) 50 mcg tablet Take 50 mcg by mouth every morning (before maryam kfast). loperamide (IMODIUM) 2 mg capsule Take 2 mg by mouth 4 times daily as needed for Diarrh ea. metoprolol succinate (TOPROL-XL) 25 mg 24 hr tablet Take 25 mg by mouth 2 times daily. Multiple Vitamins-Minerals (AIRBORNE) CHEW Take 1 tablet by mouth Daily. Probiotic Product (PROBIOTIC DAILY PO) Take 1 capsule by mouth Daily. raNITIdine (RANITIDINE) 75 MG tablet Take 150 mg by mouth 2 times daily. triamterene-hydrochlorothiazide (MAXZIDE) 75-50 mg per tablet Take 1 tablet by mouth [place] lou[place]. VENLAFAXINE HCL PO Take by mouth Daily. No current facility-administered medications on file prior to encounter. Pain assessment: none reported today; just tenderness in upper R breast Wt Readings from Last 3 Encounters: 11/11/18 70.9 kg (156 lb 4.9 oz) 11/04/18 69.5 kg (153 lb 3.5 oz) 10/28/18 72.4 kg (159 lb 9.8 oz) Vitals: 11/11/18 1450 BP: 111/57 Pulse: 70 Resp: 18 Temp: 36.4 C (97.5 F) TempSrc: Temporal SpO2: 96% Weight: 70.9 kg (156 lb 4.9 oz) Physical Exam Constitutional: She is oriented to person, place, and time. She appears well-developed. No distress. HENT: Head: Atraumatic. Eyes: No scleral icterus. Neurological: She is alert and oriented to person, place, and time. Skin: Skin is dry. Psychiatric: She has a normal mood and affect. Nurse Assessment and Toxicity Grading: Toxicity Flowsheet 11/11/2018 Diarrhea - Nausea - Vomiting - Fatigue 1 - Grade 1 Cough 0 - Grade 0 Dyspnea 1 - Grade 1 Palmar-Plantar Erythrodysesthesia Syndrome 1 - Grade 1 Rash Acneiform 0 - Grade 0 Karnofsky Performance Score 80% Physician Assessment: Overall, she is tolerating treatment well with grade 1 dermatitis noted within the irradiat ed field. She has no specific concerns or complaints this week. Acute toxicities reviewed. Disposition: She will continue treatment as planned. Freddie Shaffer DO Radiation Oncologist documented in this enco unter Plan of Treatment +--------+ + + + + | Date | Type | Specialty | Care Team | Description | +--------+ + + + + | 01/10/ | Appointment | Radiation Oncology | Yarely Jonas | | | 2019 | | | [place] [address] | | | | | | [place] | | | | | | [place] [address] | | | | | | [phone] | | | | | | | | +--------+ + + + + documented as of this encounter Visit Diagnoses + + | Diagnosis | + + | Cancer of right breast, stage 1, estrogen receptor positive (HCC) - Primary | + + documented in this encounter
--- OUTSIDE RECORDS SUMMARY | ~2019-11-25 | XMS | Encounter Summary ---
Demographics + + + | Address | [address] | | | [place] [address] | + + + | Home Phone | | + + + | Preferred Language | Unknown | + + + | Marital Status | | + + + | Adventist Affiliation | Unknown | + + + | Race | Unknown | + + + | Ethnic Group | Unknown | + + + Author + + + | Author | [facility] | | | and [place] | + + + | Organization | [facility] | | | and [...] Team Providers + +------+ + | Care Boxcar Weigher Name | Role | Phone | + +------+ + | Gopal Hill DO | PCP | | + +------+ + Reason for Visit + +--------+ + | Reason | Onset | Comments | | | Date | | + +--------+ + | Patient Concerns | 11/29/ | | | | 2019 | | + +--------+ + Encounter Details +--------+ + + + + | Date | Type | Department | Care Team | Description | +--------+ + + + + | 11/29/ | Telephone | [facility] | Evelyne Pacheco | Patient Concerns | | 2019 | | MED CTR MEDICAL | MD [place] [address] | | | | | ONCOLOGY CLINIC [address] | [place], [place] | | | | | [facility] | [address] | | | | | [place] [address] | | | | | | [phone] | | | +--------+ + + + [...] this encounter Miscellaneous Notes Telephone Encounter - Evelyne Pacheco MD - 12/03/2018 3:34 PM PDTNoted. Orthopedic ev aluation is appropriate. P M PDTTelephone Encounter - Mehnaz Carias RN - 12/02/2018 11:02 AM PDTPatient states that she was having some severe dizziness and neck pain, but she has seen her orthopedic doctor a bout this. She is being scheduled for an MRI for these symptoms. She also wanted Dr. Elizabeth hall to be aware. elep therese Encounter - Belkis Vigil RN - 11/30/2018 3:49 PM PDTAttempted to reach patient, no answer, left vm requesting a call back. elephone Encounter - Dorita Santos RN - 11/29/2018 5:09 PM PDT Left message for patient to return call so that we may follow up with her questions and conc erns. elephone Encoun ter - Amber Cade - 11/29/2018 4:02 PM PDTRose called stating that she is having some sy mptoms that she isn't sure if it's related to the radiation treatment or not and would like to discuss it with the nurse. Please return call, thank you. documented in this encounter Plan of Treatment [...] | | | | | [place] [address] | | | | | | [phone] | | | | | | | | +--------+ + + + + documented as of this encounter Visit Diagnoses Not on filedocumented in this encounter"
--- OUTSIDE RECORDS SUMMARY | ~2019-11-25 | XMS | Encounter Summary ---
Demographics + + + | Address | [address] | | | [place] [address] | + + + | Home Phone | | + + + | Preferred Language | Unknown | + + + | Marital Status | | + + + | Yarsanism Affiliation | Unknown | + + + | Race | Unknown | + + + | Ethnic Group | Unknown | + + + Author + + + | Author | [facility] | | | and [place] | + + + | Organization | [facility] | | | [...] Team Providers + +------+ + | Care Director Of Pulmonary Unit Name | Role | Phone | + +------+ + | Gopal Hill DO | PCP | | + +------+ + Encounter Details +--------+ + + + + | Date | Type | Department | Care Team | Description | +--------+ + + + + | 11/16/ | Hospital | [facility] | Evelyne Pacheco | | | 2019 | Encounter | MED CTR RADIATION | MD [place] [address] | | | | | ONCOLOGY [address] [place], [place] | | | | | [place], | [address] | | | | | [place] [address] | | | | | | [phone] | | | +--------+ + + + [...] + + documented as of this encounter Medications at Time of Discharge [...] + + + +---------+--------+ + | Biotin 37551 MCG | Take 1 tablet by | [...] +---------+--------+ + documented as of this encounter Plan [...] | | | | | [place] [address] | | | | | | [phone] | | | | | | | | +--------+ + + + + documented as of this encounter Visit Diagnoses Not on filedocumented in this encounter"
--- OUTSIDE RECORDS SUMMARY | ~2019-11-25 | XMS | Encounter Summary ---
Demographics + + + | Address | [address] | | | [place] [address] | + + + | Home Phone | | + + + | Preferred Language | Unknown | + + + | Marital Status | | + + + | Pentecostal Affiliation | Unknown | + + + | Race | Unknown | + + + | Ethnic Group | Unknown | + + + Author + + + | Author | [facility] | | | and [place] | + + + | Organization | [facility] | | | and [...] Team Providers + +------+ + | Care Twisting Frame Fixer Name | Role | Phone | + +------+ + | Gopal Hill DO | PCP | | + +------+ + Encounter Details +--------+ + + + + | Date | Type | Department | Care Team | Description | +--------+ + + + + | 10/11/ | Imaging | [facility] | Provider, | | | 2019 | Exam | MED CTR EXTERNAL | MD [address] | | | | | IMAGING [address] | | | | | [address] [place] | [place] [address] | | | | | [place] [address] | | | | | | [phone] | | | +--------+ + + + [...] [address] | | | | | | [place] [address] | | | | | | [phone] | | | | | | | | +--------+ + + + + documented as of this encounter Procedures + +--------+ + + + | Procedure Name | Priori | Date/Time | Associated Diagnosis | Comments | | | ty | | | | + +--------+ + + + | CARMITA DIGITAL | Routin | 07/26/2018 | | Results for this | | SCREENING BILATERAL | e | 12:00 AM | | procedure are in the | | | | PDT | | results section. | + +--------+ + + + documented in this encounter Results CARMITA Digital Screening Bilateral (07/26/2018 12:00 AM PDT) + + | Specimen | + + | | + + + + + | Narrative | Performed At | + + + | External films for comparison only | [facility] | | | | | No results will be in the chart. | | + + + + +---------+ + + | Performing | Address | City/State/Zipcode | Phone Number | | Organization | | | | + +---------+ + + | [facility] | | | | + +---------+ + + documented in this encounter Visit Diagnoses Not on filedocumented in this encounter"
--- OUTSIDE RECORDS SUMMARY | ~2019-11-25 | XMS | Encounter Summary ---
Demographics + + + | Address | [address] | | | [place] [address] | + + + | Home Phone | | + + + | Preferred Language | Unknown | + + + | Marital Status | | + + + | Sikh Affiliation | Unknown | + + + | Race | Unknown | + + + | Ethnic Group | Unknown | + + + Author + + + | Author | [facility] | | | and [place] | + + + | Organization | [facility] | | [...] Team Providers + +------+ + | Care Maintenance Department Manager Name | Role | Phone | + +------+ + | Gopal Hill DO | PCP | | + +------+ + Encounter Details +--------+ + + + + | Date | Type | Department | Care Team | Description | +--------+ + + + + | // | Orders Only | [facility] | Richardmarcela GopalDO | | | 2017 | | CONVERSION [address] | [address] | | | | | [address] | [address] [place], | | | | | [place], [place] | [place] [address] | | | | | [address] | [phone] | | | | | [phone] | | | +--------+ + + + [...] | | | | | [place] [id number] | | | | | | [phone] | | | | | | | | +--------+ + + + + documented as of this encounter Procedures + +--------+ + + + | Procedure Name | Priori | Date/Time | Associated Diagnosis | Comments | | | ty | | | | + +--------+ + + + | ECHO INTERPRETATION | Routin | 10/15/2016 | | Results for this | | OF OUTSIDE FILMS | e | 4:48 PM | | procedure are in the | | | | PDT | | results section. | + +--------+ + + + documented in this encounter Results ECHO Interpretation of Outside Films (10/15/2016 4:48 PM PDT) + + | Specimen | + + | | + + + + + | Impressions | Performed At | + + + | 1. The left ventricle is normal in size, wall thickness and systolic | | | function EF 60-65%. 2. The diastolic filling pattern indicates | | | impaired relaxation consistent with mild dysfunction (Grade I). 3. | | | The right ventricle is normal in size and systolic function. 4. | | | Pulmonary artery systolic pressure could not be assessed due to the | | | absence of adequate TR jet. 5. There is no pericardial effusion. | | + + + + + + | Narrative | Performed At | + + + | Patient Name: Azalia Marks Date of : 1940 | | | Performing Physician: Saroj Jewell | | | | | | INDICATIONS HYPOTENSION CONCLUSIONS 1. | | | The left ventricle is normal in size, wall thickness and systolic | | | function EF 60-65%. 2. The diastolic filling pattern indicates | | | impaired relaxation consistent with mild dysfunction (Grade I). 3. | | | The right ventricle is normal in size and systolic function. 4. | | | Pulmonary artery systolic pressure could not be assessed due to the | | | absence of adequate TR jet. 5. There is no pericardial effusion. | | | FINDINGS -------- ECG rhythm: Sinus rhythm. Study: A 2-dimensional | | | transthoracic echocardiogram with m-mode, spectral and color flow | | | Doppler was perfomed. Study: This was a technically adequate study. | | | Left Ventricle: Overall left ventricular systolic function is normal | | | with, an EF between 60 - 65 %. Left Ventricle: The left ventricle | | | cavity size is normal. Left Ventricle: Left ventricular wall | | | thickness is normal. Left Ventricle: No regional wall motion | | | abnormalities. Left Ventricle: The diastolic filling pattern | | | indicates impaired relaxation consistent with mild dysfunction (Grade | | | I). Right Ventricle: The right ventricle is normal in size. Right | | | Ventricle: The right ventricular systolic function is normal. Left | | | Atrium: The left atrium is normal in size. Right Atrium: The right | | | atrium is normal in size. Aortic Valve: The aortic valve is | | | trileaflet. Aortic Valve: There is mild aortic valve sclerosis | | | without stenosis. Aortic Valve: Trace amount of aortic regurgitation. | | | Mitral Valve: There is trace mitral regurgitation. Mitral Valve: | | | Mild mitral annular calcification present. Tricuspid Valve: The | | | tricuspid valve appears structurally normal. Tricuspid Valve: Trace | | | tricuspid regurgitation present. Tricuspid Valve: Pulmonary artery | | | systolic pressure could not be assessed due to the absence of adequate | | | TR jet. Pulmonic Valve: The pulmonic valve was not well visualized. | | | Pericardium: There is no pericardial effusion. Pericardium: No | | | pleural effusion seen. IVC/Hepatic Veins: The IVC is small (<1.5cm) | | | and collapses with sniff, consistent with central venous pressures of | | | 0-5mmHg. Aorta: The aortic root, ascending aorta are within normal | | | dimensions. MEASUREMENTS Ao asc: 3.73 cm Ao | | | Diam: 3.47 cm Ao sinus: 3.[address] junct: 3.43 cm IVC: | | | 1.44 cm LA Diam: 2.82 cm LA Major: 4.41 cm EDV(Teich): | | | 104.29 ml IVSd: 0.76 cm LVIDd: 4.73 cm LVPWd: 0.73 cm | | | LVOT Area: 3.43 cm2 LVOT Diam: 2.09 cm %FS: 31.74 % | | | EF(Teich): 59.70 % ESV(Teich): 42.02 ml LVIDs: 3.23 cm | | | SV(Teich): 62.26 ml RA Major: 4.22 cm RV Major: 5.39 cm | | | RVIDd: 2.07 cm LVEF MOD A2C: 66.40 % SV MOD A2C: 44.59 ml | | | LVEF MOD A4C: 65.07 % SV MOD A4C: 46.81 ml EF Biplane: | | | 66.06 % LVEDV MOD BP: 70.29 ml LVESV MOD BP: 23.85 ml LVEDV | | | MOD A2C: 67.16 ml LVLd A2C: 7.79 cm LVEDV MOD A4C: 71.93 ml | | | LVLd A4C: 8.01 cm LVESV MOD A2C: 22.56 ml LVLs A2C: 6.55 | | | cm LVESV MOD A4C: 25.12 ml LVLs A4C: 6.44 cm LAESV(A-L): | | | 47.56 ml LAESV Index (A-L): 26.57 ml/m2 LAAs A2C: 14.11 cm2 | | | LAESV A-L A2C: 43.29 ml LALs A2C: 3.90 cm LAAs A4C: 15.50 | | | cm2 LAESV A-L A4C: 41.18 ml LAESV MOD A4C: 48.73 ml LALs A4C: | | | 4.99 cm RAAs: 10.88 cm2 RAESV A-L: 24.36 ml RAESV MOD: | | | 23.53 ml RALs: 4.12 cm TAPSE: 1.82 cm AV maxP.25 mmHg | | | AV meanP.37 mmHg AV Vmax: 1.14 m/s AV Vmean: 0.70 m/s | | | AV VTI: 19.81 cm MAE Vmax: 2.38 cm2 MAE (VTI): 2.93 cm2 | | | AVAI Vmax: 0.00 cm2/m2 AVAI (VTI): 0.00 cm2/m2 LVOT maxPG: | | | 2.52 mmHg LVOT meanP.33 mmHg LVSI Dopp: 32.46 ml/m2 LVSV | | | Dopp: 58.11 ml LVOT Vmax: 0.79 m/s LVOT Vmean: 0.54 m/s | | | LVOT VTI: 16.90 cm MV A Esau: 0.92 m/s MV DecT: 225.33 ms | | | MV E Esau: 0.72 m/s MV E/A Ratio: 0.79 MV PHT: 65.34 ms MVA | | | By PHT: 3.36 cm2 Septal e': 0.07 m/s Septal E/e': 10.31 | | | Lateral e': 0.08 m/s Lateral E/e': 9.06 Contract Negotiator: MARC | | | Authenticated by: Saroj [facility] Report Date/Time: 10-16-2016 | | | 08:28:20 | | + + + + + | Procedure Note | + + | Alessandro, Rad Conversion - 12/02/2018 6:54 PM PDT Patient Name: Katie Marks of | | : 1940 Performing Physician: Saroj | | Alsamara INDICATIONS------ | | -----HYPOTENSION CONCLUSIONS 1. The left ventricle is normal in size, wall | | thickness and systolic function EF 60-65%.2. The diastolic filling pattern indicates | | impaired relaxation consistent with mild dysfunction (Grade I).3. The right ventricle is | | normal in size and systolic function.4. Pulmonary artery systolic pressure could not be | | assessed due to the absence of adequate TR jet.5. There is no pericardial effusion. | | FINDINGS--------ECG rhythm: Sinus rhythm.Study: A 2-dimensional transthoracic | | echocardiogram with m-mode, spectral and color flow Doppler was perfomed.Study: This was | | a technically adequate study.Left Ventricle: Overall left ventricular systolic function | | is normal with, an EF between 60 - 65 %.Left Ventricle: The left ventricle cavity size | | is normal.Left Ventricle: Left ventricular wall thickness is normal.Left Ventricle: No | | regional wall motion abnormalities.Left Ventricle: The diastolic filling pattern | | indicates impaired relaxation consistent with mild dysfunction (Grade I).Right | | Ventricle: The right ventricle is normal in size.Right Ventricle: The right ventricular | | systolic function is normal.Left Atrium: The left atrium is normal in size.Right Atrium: | | The right atrium is normal in size.Aortic Valve: The aortic valve is trileaflet.Aortic | | Valve: There is mild aortic valve sclerosis without stenosis.Aortic Valve: Trace amount | | of aortic regurgitation.Mitral Valve: There is trace mitral regurgitation.Mitral Valve: | | Mild mitral annular calcification present.Tricuspid Valve: The tricuspid valve appears | | structurally normal.Tricuspid Valve: Trace tricuspid regurgitation present.Tricuspid | | Valve: Pulmonary artery systolic pressure could not be assessed due to the absence of | | adequate TR jet.Pulmonic Valve: The pulmonic valve was not well visualized.Pericardium: | | There is no pericardial effusion.Pericardium: No pleural effusion seen.IVC/Hepatic | | Veins: The IVC is small (<1.5cm) and collapses with sniff, consistent with central | | venous pressures of 0-5mmHg.Aorta: The aortic root, ascending aorta are within normal | | dimensions. MEASUREMENTS Ao asc: 3.73 cmAo Diam: 3.47 cmAo sinus: 3.83 | | cmAo st junct: 3.43 cmIVC: 1.44 cmLA Diam: 2.82 cmLA Major: 4.41 cmEDV(Teich): | | 104.29 mlIVSd: 0.76 cmLVIDd: 4.73 cmLVPWd: 0.73 cmLVOT Area: 3.43 [id number] | | Diam: 2.09 cm%FS: 31.74 %EF(Teich): 59.70 %ESV(Teich): 42.02 mlLVIDs: 3.23 | | cmSV(Teich): 62.26 mlRA Major: 4.22 cmRV Major: 5.39 cmRVIDd: 2.07 cmLVEF MOD | | A2C: 66.40 %SV MOD A2C: 44.59 mlLVEF MOD A4C: 65.07 %SV MOD A4C: 46.81 mlEF | | Biplane: 66.06 %LVEDV MOD BP: 70.29 mlLVESV MOD BP: 23.85 mlLVEDV MOD A2C: 67.16 | | mlLVLd A2C: 7.79 cmLVEDV MOD A4C: 71.93 mlLVLd A4C: 8.01 cmLVESV MOD A2C: 22.56 | | mlLVLs A2C: 6.55 cmLVESV MOD A4C: 25.12 mlLVLs A4C: 6.44 cmLAESV(A-L): 47.56 | | mlLAESV Index (A-L): 26.57 ml/m2LAAs A2C: 14.11 [id number] A-L A2C: 43.29 mlLALs | | A2C: 3.90 cmLAAs A4C: 15.50 [id number] A-L A4C: 41.18 mlLAESV MOD A4C: 48.73 | | mlLALs A4C: 4.99 cmRAAs: 10.88 [id number] A-L: 24.36 mlRAESV MOD: 23.53 mlRALs: | | 4.12 cmTAPSE: 1.82 cmAV maxP.25 mmHgAV meanP.37 mmHgAV Vmax: 1.14 m/Cristhian | | Vmean: 0.70 m/Cristhian VTI: 19.81 cmAVA Vmax: 2.38 cm2AVA (VTI): 2.93 [id number] Vmax: | | 0.00 cm2/m2AVAI (VTI): 0.00 cm2/m2LVOT maxP.52 mmHgLVOT meanP.33 mmHgLVSI | | Dopp: 32.46 ml/m2LVSV Dopp: 58.11 mlLVOT Vmax: 0.79 m/sLVOT Vmean: 0.54 m/sLVOT | | VTI: 16.90 cmMV A Esau: 0.92 m/sMV DecT: 225.33 msMV E Esau: 0.72 m/sMV E/A | | Ratio: 0.79MV PHT: 65.34 msMVA By PHT: 3.36 [id number] e': 0.07 m/sSeptal E/e': | | 10.31Lateral e': 0.08 m/sLateral E/e': 9.06 Contract Negotiator: DHAuthenticated by: | | [facility]Report Date/Time: 10-16-2016 08:28:20 IMPRESSION: 1. The left ventricle | | is normal in size, wall thickness and systolic function EF 60-65%.2. The diastolic | | filling pattern indicates impaired relaxation consistent with mild dysfunction (Grade | | I).3. The right ventricle is normal in size and systolic function.4. Pulmonary artery | | systolic pressure could not be assessed due to the absence of adequate TR jet.5. There | | is no pericardial effusion. | |Ao sinus: 3.83 cm | |Ao st junct: 3.43 cm | |IVC: 1.44 cm | |LA Diam: 2.82 cm | |LA Major: 4.41 cm | |EDV(Teich): 104.29 ml | |IVSd: 0.76 cm | |LVIDd: 4.73 cm | |LVPWd: 0.73 cm | |LVOT Area: 3.43 cm2 | |LVOT Diam: 2.09 cm | |%FS: 31.74 % | |EF(Teich): 59.70 % | |ESV(Teich): 42.02 ml | |LVIDs: 3.23 cm | |SV(Teich): 62.26 ml | |RA Major: 4.22 cm | |RV Major: 5.39 cm | |RVIDd: 2.07 cm | |LVEF MOD A2C: 66.40 % | |SV MOD A2C: 44.59 ml | |LVEF MOD A4C: 65.07 % | |SV MOD A4C: 46.81 ml | |EF Biplane: 66.06 % | |LVEDV MOD BP: 70.29 ml | |LVESV MOD BP: 23.85 ml | |LVEDV MOD A2C: 67.16 ml | |LVLd A2C: 7.79 cm | |LVEDV MOD A4C: 71.93 ml | |LVLd A4C: 8.01 cm | |LVESV MOD A2C: 22.56 ml | |LVLs A2C: 6.55 cm | |LVESV MOD A4C: 25.12 ml | |LVLs A4C: 6.44 cm | |LAESV(A-L): 47.56 ml | |LAESV Index (A-L): 26.57 ml/m2 | |LAAs A2C: 14.11 cm2 | |LAESV A-L A2C: 43.29 ml | |LALs A2C: 3.90 cm | |LAAs A4C: 15.50 cm2 | |LAESV A-L A4C: 41.18 ml | |LAESV MOD A4C: 48.73 ml | |LALs A4C: 4.99 cm | |RAAs: 10.88 cm2 | |RAESV A-L: 24.36 ml | |RAESV MOD: 23.53 ml | |RALs: 4.12 cm | |TAPSE: 1.82 cm | |AV maxP.25 mmHg | |AV meanP.37 mmHg | |AV Vmax: 1.14 m/s | |AV Vmean: 0.70 m/s | |AV VTI: 19.81 cm | |MAE Vmax: 2.38 cm2 | |MAE (VTI): 2.93 cm2 | |AVAI Vmax: 0.00 cm2/m2 | |AVAI (VTI): 0.00 cm2/m2 | |LVOT maxP.52 mmHg | |LVOT meanP.33 mmHg | |LVSI Dopp: 32.46 ml/m2 | |LVSV Dopp: 58.11 ml | |LVOT Vmax: 0.79 m/s | |LVOT Vmean: 0.54 m/s | |LVOT VTI: 16.90 cm | |MV A Esau: 0.92 m/s | |MV DecT: 225.33 ms | |MV E Esau: 0.72 m/s | |MV E/A Ratio: 0.79 | |MV PHT: 65.34 ms | |MVA By PHT: 3.36 cm2 | |Septal e': 0.07 m/s | |Septal E/e': 10.31 | |Lateral e': 0.08 m/s | |Lateral E/e': 9.06 | | | |Contract Negotiator: MARC | |Authenticated by: Saroj Jewell | |Report Date/Time: 10-16-2016 08:28:20 | | | |IMPRESSION: | |1. The left ventricle is normal in size, wall thickness and systolic function EF 60-65%. | |2. The diastolic filling pattern indicates impaired relaxation consistent with mild dysfunc tion (Grade I). | |3. The right ventricle is normal in size and systolic function. | |4. Pulmonary artery systolic pressure could not be assessed due to the absence of adequate TR jet. | |5. There is no pericardial effusion. | + + documented in this encounter Visit Diagnoses Not on filedocumented in this encounter"
--- OUTSIDE RECORDS SUMMARY | ~2019-11-25 | XMS | Clinical Summary ---
Demographics + + + | Address | [address] | | | [place] [address] | + + + | Home Phone | | + + + | Preferred Language | Unknown | + + + | Marital Status | | + + + | Temple Affiliation | Unknown | + + + | Race | Unknown | + + + | Ethnic Group | Unknown | + + + Author + + + | Author | [facility] | | | and [place] | + + + | Organization | [facility] | | | [...] Team Providers + +------+ + | Care Employment Trainer Name | Role | Phone | + +------+ + | Gopal Hill DO | PCP | | + +------+ + Allergies + + + + + + | Active Allergy | Reactions | Severity | Noted | Comments | | | | | Date | | + + + + + + | Adhesive & Tape | Itching | | 10/13/19 | | | | | | 19 | | + + + + + + | Cephalexin | Other (See Comments) | Medium | 11/20/19 | PASS OUT | | | | | 13 | | + + + + + + | Codeine | Other (See Comments) | Medium | 11/20/19 | "CRAZY" | | | | | 13 | | + + + + + + | Propoxyphene | Other (See Comments) | Medium | 11/20/19 | HYPER | | | | | 13 | | + + + + + + | Sulfa Antibiotics | Rash | Medium | 11/20/19 | | | | | | 13 | | + + + + + + Medications + + + +---------+------+------+-------+ | Medication | Sig | Dispensed | Refills | Star | End | Statu | | | | | | t | Date | s | | | | | | Date | | | + + + +---------+------+------+-------+ | domperidone 10 mg | Take 10 mg by mouth | | 0 | | | Activ | | capsule | 3 times daily | | | | | e | | | (before meals). | | | | | | + + + +---------+------+------+-------+ | | Take 1 tablet by | | 0 | | | Activ | | triamterene-hydrochl | mouth Daily. | | | | | e | | orothiazide | | | | | | | | (MAXZIDE) 75-50 mg | | | | | | | | per tablet | | | | | | | + + + +---------+------+------+-------+ | metoprolol | Take 25 mg by mouth | | 0 | | | Activ | | succinate | 2 times daily. | | | | | e | | (TOPROL-XL) 25 mg 24 | | | | | | | | hr tablet | | | | | | | + + + +---------+------+------+-------+ | esomeprazole | Take 40 mg by mouth | | 0 | | | Activ | | (NEXIUM) 40 mg | every morning | | | | | e | | capsule | (before breakfast). | | | | | | + + + +---------+------+------+-------+ | celecoxib | Take 100 mg by mouth | | 0 | | | Activ | | (CELEBREX) 100 mg | Daily. | | | | | e | | capsule | | | | | | | + + + +---------+------+------+-------+ | levothyroxine | Take 50 mcg by mouth | | 0 | | | Activ | | (SYNTHROID) 50 mcg | every morning | | | | | e | | tablet | (before breakfast). | | | | | | + + + +---------+------+------+-------+ | dicyclomine | Take 10 mg by mouth | | 0 | | | Activ | | (BENTYL) 10 mg | every 8 hours as | | | | | e | | capsule | needed. | | | | | | + + + +---------+------+------+-------+ | raNITIdine | Take 150 mg by mouth | | 0 | | | Activ | | (RANITIDINE) 75 MG | 2 times daily. | | | | | e | | tablet | | | | | | | + + + +---------+------+------+-------+ | Probiotic Product | Take 1 capsule by | | 0 | | | Activ | | (PROBIOTIC DAILY PO) | mouth Daily. | | | | | e | + + + +---------+------+------+-------+ | ferrous sulfate | Take 325 mg by mouth | | 0 | | | Activ | | 325 mg tablet | daily (with | | | | | e | | | breakfast). | | | | | | + + + +---------+------+------+-------+ | aspirin 81 mg EC | Take 81 mg by mouth | | 0 | | | Activ | | tablet | Daily. | | | | | e | + + + +---------+------+------+-------+ | cholecalciferol | Take 5,000 Units by | | 0 | | | Activ | | (VITAMIN D-3) 5000 | mouth Daily. | | | | | e | | units TABS | | | | | | | + + + +---------+------+------+-------+ | Cyanocobalamin | Take 100 mg by mouth | | 0 | | | Activ | | (VITAMIN B 12 PO) | 2 times daily. | | | | | e | + + + +---------+------+------+-------+ | Multiple | Take 1 tablet by | | 0 | | | Activ | | Vitamins-Minerals | mouth Daily. | | | | | e | | (AIRBORNE) CHEW | | | | | | | + + + +---------+------+------+-------+ | Ascorbic Acid | Take 1,000 mg by | | 0 | | | Activ | | (VITAMIN C) 1000 MG | mouth Daily. | | | | | e | | tablet | | | | | | | + + + +---------+------+------+-------+ | Biotin 36430 MCG | Take 1 tablet by | | 0 | | | Activ | | TABS | mouth 2 times daily. | | | | | e | + + + +---------+------+------+-------+ | cycloSPORINE | Apply to eye 2 | | 0 | | | Activ | | (RESTASIS OP) | times daily. | | | | | e | + + + +---------+------+------+-------+ | diclofenac | Place 1 patch onto | | 0 | | | Activ | | (FLECTOR) 1.3% PTCH | the skin 2 times | | | | | e | | | daily. | | | | | | + + + +---------+------+------+-------+ | cetirizine | Take 10 mg by mouth | | 0 | | | Activ | | (ZYRTEC) 10 mg | Daily. | | | | | e | | tablet | | | | | | | + + + +---------+------+------+-------+ | loperamide | Take 2 mg by mouth 4 | | 0 | | | Activ | | (IMODIUM) 2 mg | times daily as | | | | | e | | capsule | needed for Diarrhea. | | | | | | + + + +---------+------+------+-------+ | fish oil 1,000 mg | Take 1,000 mg by | | 0 | | | Activ | | capsule | mouth Daily. | | | | | e | + + + +---------+------+------+-------+ | | Apply to eye. | | 0 | | | Activ | | Carboxymeth-Glycerin | | | | | | e | | -Polysorb (REFRESH | | | | | | | | OPTIVE CARINA-3 OP) | | | | | | | + + + +---------+------+------+-------+ | DULoxetine | Take 1 capsule by | | 12 | 10/1 | | Activ | | (CYMBALTA) [address] | mouth Daily. | | | 4/20 | | e | | capsule | | | | 19 | | | + + + +---------+------+------+-------+ | venlafaxine | Take 1 capsule by | | 12 | 10/1 | | Activ | | (EFFEXOR XR) 37.5 mg | mouth Daily. | | | 5/20 | | e | | 24 hr capsule | | | | 19 | | | + + + +---------+------+------+-------+ | gabapentin | Take 300 mg by mouth | | 0 | | | Activ | | (NEURONTIN) 300 mg | 3 times daily. Has | | | | | e | | capsule | not filled yet | | | | | | + + + +---------+------+------+-------+ | anastrozole | Take 1 mg by mouth | | 0 | | | Activ | | (ARIMIDEX) 1 mg | Daily. 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 | 10/01/2018 | | breast in female | | + + + | Fibromyalgia | 01/21/2013 | + + + | Foraminal stenosis of lumbosacral region | 01/21/2013 | + + + | Radiculopathy, cervical | 01/21/2013 | + + + | Scoliosis | 01/21/2013 | + + + Encounters +--------+ + + + + | Date | Type | Specialty | Care Team | Description | +--------+ + + + + | 09/20/ | Telephone | Radiation Oncology | Evelyne Pacheco | Other | | 2020 | | | MD [facility] | | +--------+ + + + + from Last 3 Months Immunizations + + + + | Name | Administration Dates | Next Due | + + + + | INFLUENZA 65 Y OR >, | 01/11/2018, 02/12/2017, 03/05/2016, | | | TRIVALENT HIGH-DOSE | 01/29/2015 | | + + + + | INFLUENZA PF | 01/24/2019, 02/19/2012 | | | TRIVALENT(PED/ADOL/A | | | | DULT) PSKT | | | + + + + | INFLUENZA TRIV | 01/18/2013 | | | W/PRES(PED/ADOL/ADUL | | | | T),MULTIDOSE | | | + + + + | INFLUENZA, | 01/18/2013 | | | UNSPECIFIED | | | | FORMULATION | | | + + + + | TDAP, (ADOL/ADULT) | 02/19/2012 | | + + + + Family History + + +------+ + | Medical History | Relation | Name | Comments | + + +------+ + | Heart disease | Maternal | | | | | Grandfath | | | | | er | | | + + +------+ + | Stroke | Maternal | | | | | Grandmoth | | | | | er | | | + + +------+ + | Stroke | Mother | | | + + +------+ + + +------+ + + | Relation | Name | Status | Comments | + +------+ + + | Father | | | | + +------+ + + | Maternal Grandfather | | | | + +------+ + + | Maternal Grandmother | | | | + +------+ + + | Mother | | | | + +------+ + + Social History + +-------+ +--------+------+ [...] on file | | + + + Last Filed Vital Signs + + + + + | Vital Sign | Reading | Time Taken | Comments | + + + + + | Blood Pressure | 122/61 | 02/28/2019 1:56 PM | | | | | PST | | + + + + + | Pulse | 76 | 02/28/2019 1:56 PM | | | | | PST | | + + + + + | Temperature | 36.4 C (97.5 F) | 02/28/2019 1:56 PM | | | | | PST | | + + + + + | Respiratory Rate | 16 | 02/28/2019 1:56 PM | | | | | PST | | + + + + + | Oxygen Saturation | 96% | 02/28/2019 1:56 PM | | | | | PST | | + + + + + | Inhaled Oxygen | - | - | | | Concentration | | | | + + + + + | Weight | 70 kg (154 lb 5.2 | 02/28/2019 1:56 PM | | | | oz) | PST | | + + + + + | Height | 169 cm (5' 6.54") | 10/12/2018 1:30 PM | | | | | PDT | | + + + + + | Body Mass Index | 24.51 | 10/12/2018 1:30 PM | | | | | PDT | | + + + + + Plan of Treatment +--------+ + + + + | Date | Type | Specialty | Care Team | Description | +--------+ + + + + | 01/10/ | Appointment | Radiation Oncology | Yarely Jonas | | | 2020 | | | [address] [address] | | | | | | [address] | | | | | | [place] [address] | | | | | | [phone] | | | | | | | | +--------+ + + + + + + + + + | Health Maintenance | Due Date | Last | Comments | | | | Done | | + + + + + | Hepatitis C | | | | | Screening | 0 | | | + + + + + | Med Mgmt: BUN | | | | | | 0 | | | + + + + + | Med Mgmt: Cr | | | | | | 0 | | | + + + + + | Med Mgmt: K | | | | | | 0 | | | + + + + + | Med Mgmt: Na | | | | | | 0 | | | + + + + + | Med Mgmt: TSH | | | | | | 0 | | | + + + + + | Med Mgmt: Vit D | | | | | | 0 | | | + + + + + | Med Mgmt: eGFR | | | | | | 0 | | | + + + + + | Medication | | | | | Management | 0 | | | + + + + + | Vaccine: | | | | | Pneumococcal 65+ (1 | 5 | | | | of 1 - PPSV23) | | | | + + + + + | Vaccine: Zoster (1 | | | | | of 2) | 0 | | | + + + + + | Adult Annual | | | | | Wellness Visit | 9 | | | + + + + + | Vaccine: Influenza | | 01/25/20 | | | (#1) | 0 | 19, | | | | | 01/12/20 | | | | | 18, | | | | | 02/13/20 | | | | | 17, | | | | | Addition | | | | | al | | | | | history | | | | | exists | | + + + + + | Breast Cancer | | 07/27/19 | | | Screening | 1 | 19 | | + + + + + | Vaccine: | | 02/19/20 | | | Dtap/Tdap/Td (2 - | 2 | 12, | | | Td) | | 04/13/18 | | | | | 98 | | + + + + + Procedures + +--------+ + + + | Procedure Name | Priori | Date/Time | Associated Diagnosis | Comments | | | ty | | | | + +--------+ + + + | IMAGING REPORT - | | 09/28/2019 | | Results for this | | EXTERNAL SCAN | | 12:00 AM | | procedure are in the | | | | PDT | | results section. | + +--------+ + + + from Last 3 Months Results IMAGING REPORT - EXTERNAL SCAN (09/28/2019 12:00 AM PDT) + + + | Narrative | Performed At | + + + | Ordered by an | | | unspecified provider. | | + + + from Last 3 Months Insurance + +--------+ +--------+ +---------+--------+ | Payer | Benefi | Subscriber | Effect | Phone | Address | Type | | | t Plan | ID | mary | | | | | | / | | Dates | | | | | | Group | | | | | | + +--------+ +--------+ +---------+--------+ | MEDICARE | MEDICA | [id number] | | [phone] | | Medica | | | RE | | 005-Pr | 5 | | re | | | PART A | | esent | | | | | | AND B | | | | | | + +--------+ +--------+ +---------+--------+ | | CHAMPV | [id number] | 11/20/19 | [phone] | | Indemn | | | A | | 00-Pre | 7 | | ity | | | | | sent | | | | + +--------+ +--------+ +---------+--------+ + +--------+ +--------+ + + | Guarantor Name | Accoun | Relation to | Date | Phone | Billing Address | | | t Type | Patient | of | | | | | | | | | | + +--------+ +--------+ + + | Azalia Marks | Person | Self [birth year] | [address] | | | al/Fam | | 1940 | [phone] | [place] | | | [place] | | | [address] (Home) | [address] | + +--------+ +--------+ + + Advance Directives + + + + + | Type | Date Recorded | Patient | Explanation | | | | Associate Brand Manager | | + + + + + | Power of | | | | | Audit Director | | | | + + + + + | Advance | | | | | Directive | | | | + + + + +
--- OUTSIDE RECORDS SUMMARY | ~2019-11-25 | XMS | Encounter Summary ---
Demographics + + + | Address | [address] | | | [place] [address] | + + + | Home Phone | | + + + | Preferred Language | Unknown | + + + | Marital Status | | + + + | Sikh Affiliation | Unknown | + + + | Race | Unknown | + + + | Ethnic Group | Unknown | + + + Author + + + | Author | [facility] | | | and [place] | + + + | Organization | [facility] | | | [...] Team Providers + +------+ + | Care Childcare Aide Name | Role | Phone | + +------+ + | Gopal Hill DO | PCP | | + +------+ + Encounter Details +--------+ + + + + | Date | Type | Department | Care Team | Description | +--------+ + + + + | 10/16/ | Hospital | [facility] | Evelyne Pacheco | | | 2019 | Encounter | MED CTR RADIATION | MD [place] [address] | | | | | ONCOLOGY [address] [place], [place] | | | | | [place], | [address] | | | | | [place] [address] | | | | | | [phone] | | | +--------+ + + + [...] + + + +---------+--------+ + | Biotin 02531 MCG | Take 1 tablet by | [...] | + + + +---------+--------+ + | Polyethyl | Apply to eye as | | 0 | | | | Glycol-Propyl Glycol | needed. | | | | 9 | | (SYSTANE OP) | | | | | | + + + +---------+--------+ + documented [...] | | | | | [place] [address] | | | | | | [phone] | | | | | | | | +--------+ + + + + documented as of this encounter Visit Diagnoses Not on filedocumented in this encounter"
--- OUTSIDE RECORDS SUMMARY | ~2019-11-25 | XMS | Encounter Summary ---
Demographics + + + | Address | [address] | | | [place] [address] | + + + | Home Phone | | + + + | Preferred Language | Unknown | + + + | Marital Status | | + + + | Congregation Affiliation | Unknown | + + + | Race | Unknown | + + + | Ethnic Group | Unknown | + + + Author + + + | Author | [facility] | | | and [place] | + + + | Organization | [facility] | | [...] Team Providers + +------+ + | Care Cash Reconciliation Specialist Name | Role | Phone | + [...] | | | [address] | [place] [address] | | | | | [place] [address] | | | | | | [phone] | | | +--------+ + + + [...] | | | | | | [place] [address] | | | | | | [phone] | | | | | | | | +--------+ + + + + documented as of this encounter Procedures + +--------+ + + + | Procedure Name | Priori | Date/Time | Associated Diagnosis | Comments | | | ty | | | | + +--------+ + + + | NM LYMPHOSCINTIGRAM | Routin | 09/07/2018 | | Results for this | | | e | 12:05 AM | | procedure are in the | | | | PDT | | results section. | + +--------+ + + + documented in this encounter Results NM Lymphatic Imaging (09/07/2018 12:05 AM PDT) + + | Specimen | [...]
--- OUTSIDE RECORDS SUMMARY | ~2019-11-25 | XMS | Encounter Summary ---
Demographics + + + | Address | [address] | | | [place] [address] | + + + | Home Phone | | + + + | Preferred Language | Unknown | + + + | Marital Status | | + + + | Muslim Affiliation | Unknown | + + + | Race | Unknown | + + + | Ethnic Group | Unknown | + + + Author + + + | Author | [facility] | | | and [place] | + + + | Organization | [facility] | | [...] Team Providers + +------+ + | Care Atomic Physics Professor Name | Role | Phone | + +------+ + PCP | Unavailable | + +------+ + Encounter Details +--------+ + + + + | Date | Type | Department | Care Team | Description | +--------+ + + + + | 07/22/ | Hospital | [facility] | Conversion | Back pain | | 2012 | Encounter | CONVERSION [address] | Transaction, | | | | | [address] | Provider Unknown | | | | | [place], [place] | [phone] | | | | | [address] | | | | | | [phone] | | | +--------+ + + + [...] | | | | | [place] [address] | | | | | | [phone] | | | | | | | | +--------+ + + + + documented as of this encounter Procedures + +--------+ + + + | Procedure Name | Priori | Date/Time | Associated Diagnosis | Comments | | | ty | | | | + +--------+ + + + | MRI LUMBAR SPINE WO | Routin | 10/12/2012 | | Results for this | | CONTRAST | e | 12:09 PM | | procedure are in the | | | | PDT | | results section. | + +--------+ + + + documented in this encounter Results MRI Lumbar Spine wo Contrast (10/12/2012 12:09 PM PDT) + + | Specimen | + + | | + + + + + | Narrative | Performed At | + + + | This is a non-reportable procedure without a radiologist report and | | | is used for image storage only | | + + + + + | Procedure Note | + + | Alessandro Mikey Conversion - 12/03/2018 6:59 PM PDT This is a non-reportable procedure | | without a radiologist report and isused for image storage only | + + documented in this encounter Visit Diagnoses + + | Diagnosis | + + | Back pain Backache, unspecified | + + documented in this encounter"
--- OUTSIDE RECORDS SUMMARY | ~2019-11-25 | XMS | Encounter Summary ---
Demographics + + + | Address | [address] | | | [place] [address] | + + + | Home Phone | | + + + | Preferred Language | Unknown | + + + | Marital Status | | + + + | Buddhist Affiliation | Unknown | + + + | Race | Unknown | + + + | Ethnic Group | Unknown | + + + Author + + + | Author | [facility] | | | and [place] | + + + | Organization | [facility] | | | and [place] | + + + | Address | Unknown | + + + | Phone | Unavailable | + + + Support + + +---------+ + | Name | Relationship | Address | Phone | + + +---------+ + | Casandra Winston | ECON | Unknown | | + + +---------+ + | Kahterin Cole | ECON | Unknown | | + + +---------+ + Care Team Providers + +------+ + | Care Municipal Clerk Name | Role | Phone | + [...] | | | [address] | [place] [address] | | | | | [place] [address] | | | | | | [phone] | | | +--------+ + + + [...] | | | | | | [place] [address] | | | | | | [phone] | | | | | | | | +--------+ + + + + documented as of this encounter Procedures + +--------+ + + + | Procedure Name | Priori | Date/Time | Associated Diagnosis | Comments | | | ty | | | | + +--------+ + + + | US GUIDED BREAST | Routin | 08/24/2018 | | | | BIOPSY RIGHT | e | 12:00 AM | | | | | | PDT | | | + +--------+ + + + documented in this encounter Results US Guided Breast Biopsy Right (08/24/2018 12:00 AM PDT) + + | Specimen | + + | | + + + +---------+ + + | Performing | Address | City/State/Zipcode | Phone Number | | Organization | | | | + +---------+ + + | [facility] | | | | + +---------+ + + documented in this encounter Visit Diagnoses Not on filedocumented in this encounter"
--- OUTSIDE RECORDS SUMMARY | ~2019-11-25 | XMS | Encounter Summary ---
Demographics + + + | Address | [address] | | | [place] [address] | + + + | Home Phone [...] + | Author | [facility] | | | and [place] | + + + | Organization | [facility] | | | and [...] Team Providers + +------+ + | Care Felt Finishing Supervisor Name | Role | Phone | + +------+ + | Gopal Hill DO | PCP | | + +------+ + Reason for Visit +--------+--------+ + | Reason | Onset | Comments | | | Date | | +--------+--------+ + | Other | 12/28/ | | | | 2019 | | +--------+--------+ + Encounter Details +--------+ + + + + | Date | Type | Department | Care Team | Description | +--------+ + + + + | 12/28/ | Telephone | [facility] | Evelyne Pacheco | Other | | 2019 | | MED CTR MEDICAL | MD [place] [address] | | | | | ONCOLOGY CLINIC [address] | [place], [place] | | | | | [facility] | [address] | | | | | [place] [address] | | | | | | [phone] | | | +--------+ + + + [...] this encounter Miscellaneous Notes Telephone Encounter - Mehnaz Carias RN - 12/28/2018 1:40 PM PDTReturn call to patient, let her know that we were just returning her call regarding her MRI, this has been resolved, a CT was ordered instead. elephone Encounter - William Smith - 12/28/2018 11:12 AM PDTPt called, has been h aving phone issues but returning call [phone] If you do not reach her [phone] is daughter. Thank you documented in this encounter Plan of Treatment [...] | | | | | [place] [address] | | | | | | [phone] | | | | | | | | +--------+ + + + + documented as of this encounter Visit Diagnoses Not on filedocumented in this encounter"
--- OUTSIDE RECORDS SUMMARY | ~2019-11-25 | XMS | Encounter Summary ---
Demographics + + + | Address | [address] | | | [place] [address] | + + + | Home Phone | | + + + | Preferred Language | Unknown | + + + | Marital Status | | + + + | Protestant Affiliation | Unknown | + + + [...] Team Providers + +------+ + | Care Custodial Operations Manager Name | Role | Phone | + +------+ + PCP | Unavailable | + +------+ + Encounter Details +--------+ + + + + | Date | Type | Department | Care Team | Description | +--------+ + + + + | 07/22/ | Hospital | [facility] | Conversion | Neck pain | | 2012 | Encounter | CONVERSION [address] | Transaction, | | | | | [address] | Provider Unknown | | | | | [place], [place] | [phone] | | | | | [address] | | | | | | [phone] | | | +--------+ + + + [...] | | | 2019 | | | [facility] [address] | | | | | | [address] | | | | | | [place] [address] | | | | | | [phone] | | | | | | | | +--------+ + + + + documented as of this encounter Procedures + +--------+ + + + | Procedure Name | Priori | Date/Time | Associated Diagnosis | Comments | | | ty | | | | + +--------+ + + + | MRI CERVICAL SPINE | Routin | 10/12/2012 | | Results for this | | WO CONTRAST | e | 12:09 PM | | procedure are in the | | | | PDT | | results section. | + +--------+ + + + documented in this encounter Results MRI Cervical Spine wo Contrast (10/12/2012 12:09 PM PDT) [...] | Procedure Note | + + | Mikey Francois Conversion - 12/03/2018 6:59 PM PDT This is a non-reportable procedure | | without a radiologist report and isused for image storage only | + + documented in this encounter Visit Diagnoses + + | Diagnosis | + + | Neck pain Cervicalgia | + + documented in this encounter"
--- OUTSIDE RECORDS SUMMARY | ~2019-11-25 | XMS | Encounter Summary ---
Demographics + + + | Address | [address] | | | [place] [address] | + + + | Home Phone | | + + + | Preferred Language | Unknown | + + + | Marital Status | | + + + | Gnosticism Affiliation | Unknown | + + + | Race | Unknown | + + + | Ethnic Group | Unknown | + + + Author + + + | Author | [facility] | | | and [place] | + + + | Organization | [facility] | | [...] Team Providers + +------+ + | Care Radiological Technologist Name | Role | Phone | + +------+ + | Gopal Hill DO | PCP | | + +------+ + Reason for Visit +--------+--------+ + | Reason | Onset | Comments | | | Date | | +--------+--------+ + | Other | 10/13/ | | | | 2019 | | +--------+--------+ + Encounter Details +--------+ + + + + | Date | Type | Department | Care Team | Description | +--------+ + + + + | 10/13/ | Telephone | [facility] | Ayaka Manrique RN | Other | | 2019 | | [facility] MED[facility] | | | | | | ONCOLOGY CLINIC [address] | | | | | | [address] | | | | | | [place] [address] | | | | | | [phone] | | | +--------+ + + + [...] this encounter Miscellaneous Notes Telephone Encounter - Ayaka Manrique RN - 10/13/2018 1:27 PM [place] was screened for her editary cancers and base on the information she provided there are no red flags to indicate further genetic testing at this time.Electronically signed by Ayaka Manrique RN at 1:27 PM PDTdocumented in this encounter Plan of Treatment +--------+ + + + + | Date | Type | Specialty | Care Team | Description | +--------+ + + + + | 01/10/ | Appointment | Radiation Oncology | Yarely Jonas | | | 2019 | | | [facility] [address] [address] | | | | | | [address] | | | | | | [place] [address] | | | | | | [phone] | | | | | | | | +--------+ + + + + documented as of this encounter Visit Diagnoses Not on filedocumented in this encounter"
--- OUTSIDE RECORDS SUMMARY | ~2019-11-25 | XMS | Encounter Summary ---
Demographics + + + | Address | [address] | | | [place] [address] | + + + | Home Phone | | + + + | Preferred Language | Unknown | + + + | Marital Status | | + + + | Christian Affiliation | Unknown | + + + | Race | Unknown | + + + | Ethnic Group | Unknown | + + + Author + + + | Author | [facility] | | | and [place] | + + + | Organization | [facility] | | | [...] Team Providers + +------+ + | Care Supervisor Cab Name | Role | Phone | + +------+ + | Gopal Hill DO | PCP | | + +------+ + Encounter Details +--------+ + + + + | Date | Type | Department | Care Team | Description | +--------+ + + + + | 11/02/ | Documentati | [facility] | Adeola Dorantes | | | 2019 | on | MED CNT ONCOLOGY | A, OT | | | | | THERAPY [address] | | | | | | [place], | | | | | | [place] [address] | | | | | | [phone] | | | +--------+ + + + [...] documented as of this encounter Progress Notes Adeloa Dorantes, OT - 11/02/2018 2:47 PM [facility] [address] [facility] [address] Oncology Rehab Screening Date: 11/02/2018 Patient Information Patient Name: Azalia Marks Date of : 1940 Age: 78 y.o. Patient was seen for oncology rehab screening due to new patient consult. Patient currently being treated for R breast cancer and treatment regimen includes radiation. Introduced bee miller to patient and advised her of role and availability of oncology rehab navigator. Patient is s/p R lumpectomy and SNB (0/1+); with surgery in [place], [place] on 09/07/18. She has had n o complications since surgery. She has full RUE ROM; no edema or scar fibrosis. Patient is tolerating radiation treatment well thus far. Discussed with her scar massage and ROM as b eing effective in helping to maintain tissue pliability during and after radiation treatment . Patient's primary area of concern at this time is related to her difficulty with gas, blo ating, and difficulty swallowing. She reports she had a significant choking episode and has had pain in her chest and some difficulty with swallowing since then. She will be having a swallow study later this week. She reports hx of major abdominal surgery affecting her sto mach and intestines which has left her with issues of gas/bloating, diarrhea and some fecal incontinence. But she states she has "learned to deal with it" and because of this feels li ke her treatment for breast cancer has not been too difficult. No further issues at this yung e. Encouraged patient to contact onc rehab if she should have any questions or concerns in the future. Patient to contact therapist or doctor if change in status. Electronically signed by: Adeola Dorantes OT, 11/02/2018 14:47 Patient Name: Azalai Marks/: 1940/ documented in this encounter Plan [...] | | | | | [place] [address] | | | | | | [phone] | | | | | | | | +--------+ + + + + documented as of this encounter Visit Diagnoses Not on filedocumented in this encounter
--- OUTSIDE RECORDS SUMMARY | ~2019-11-25 | XMS | Encounter Summary ---
Demographics + + + | Address | [address] | | | [place] [address] | + + + | Home Phone | | + + + | Preferred Language | Unknown | + + + | Marital Status | | + + + | Yarsanism Affiliation | Unknown | + + + | Race | Unknown | + + + | Ethnic Group | Unknown | + + + Author + + + | Author | [facility] | | | and [place] | + + + | Organization | [facility] | | [...] Team Providers + +------+ + | Care Laser Systems Engineer Name | Role | Phone | + +------+ + | Gopal Hill DO | PCP | | + +------+ + Reason for Visit + +--------+ + | Reason | Onset | Comments | | | Date | | + +--------+ + | Scheduling Issues | 10/04/ | | | | 2019 | | + +--------+ + Encounter Details +--------+ + + + + | Date | Type | Department | Care Team | Description | +--------+ + + + + | 10/04/ | Telephone | [facility] | Daily Garcia | Scheduling Issues | | 2019 | | [facility] | Denzel RN | | | | | ONCOLOGY CLINIC [address] | | | | | | [address] | | | | | | [place] [address] | | | | | | [phone] | | | +--------+ + + + [...] this encounter Miscellaneous Notes Telephone Encounter - Daily Garcia RN - 10/04/2018 2:35 PM PDTTelephone call back from Azalia. She lives in [place] and is a . I introduced myself and my role of suppo rt and education. I described MBC and she's anticipating her appointment with Dr. Tara aponte 10/12 with a 1:30 pm check in time. She's been given directions to the cancer center. She reports her distress is 2/10 and is related to not knowing what radiation therapy will be like. I described external beam therapy M-F for 3-4 weeks and answered her immediate qu estions. I let her know that some women are able to consider APBI which is 5 days of twice d aily treatments and Dr. Pacheco will discuss her options more with her. We discussed lodgin g and transportation assistance. She prefers to drive back/forth but will consider lodging if she has APBI. She asked about Hormone Therapy and I let her know Dr. Lazo will ta lk with her about it when she sees him at [facility] 10/06/18. She recently discontinued hormone yee pplement medication. Azalia has a cancer policy and I encouraged her to look at the benefits available to her. Valencia lima reports no family history of breast cancer. Her paternal aunt had a history of uterine ca ncer. documented in thi s encounter Plan of Treatment +--------+ + + + + | Date | Type | Specialty | Care Team | Description | +--------+ + + + + | 01/10/ | Appointment | Radiation Oncology | Yarely Jonas | | | 2019 | | | [facility] [address] | | | | | | [address] | | | | | | [place] [address] | | | | | | [phone] | | | | | | | | +--------+ + + + + documented as of this encounter Visit Diagnoses Not on filedocumented in this encounter"
--- OUTSIDE RECORDS SUMMARY | ~2019-11-25 | XMS | Encounter Summary ---
Demographics + + + | Address | [address] | | | [place] [address] | + + + | Home Phone | | + + + | Preferred Language | Unknown | + + + | Marital Status | | + + + | Synagogue Affiliation | Unknown | + + + | Race | Unknown | + + + | Ethnic Group | Unknown | + + + Author + + + | Author | [facility] | | | and [place] | + + + | Organization | [facility] | | [...] Team Providers + +------+ + | Care Enforcement Officer Name | Role | Phone | + +------+ + | Gopal Hill DO | PCP | | + +------+ + Reason for Visit + + + | Reason | Comments | + + + | Follow-up | | + + + Encounter Details +--------+ + + + + | Date | Type | Department | Care Team | Description | +--------+ + + + + | 02/28/ | Hospital | [facility] | Evelyne Pacheco | Infiltrating ductal | | 2019 | Encounter | MED CTR RADIATION | MD [facility] [address] | carcinoma of | | | | ONCOLOGY CLINIC [address] | [place], [place] | upper-outer quadrant | | | | [address] [facility] | [address] | of right breast in | | | | [place] [address] | | female (HCC) | | | | [phone] | | (Primary Dx); | | | | | | Abnormal breast exam | +--------+ + + + + Social [...] + + + documented in this encounter Discharge Instructions Patient Instructions Mehnaz Carias RN - 02/28/2019 2:00 PM PSTRight breast ultrasound t o be done now to evaluate dense tissue retro areola on the right breast Follow-up with Dr. Pacheco in 6 months Labs: none Imaging: Bilateral screening mammogram due in July, as scheduled Medication changes: none Referrals: none Follow-up with Dr. Lazo as directed. Alternation of follow-up between providers an ticipated. Self-care recommendations: Work to increase your activity to help with mood issues, continu e to follow with primary care provider concerning medications. documented in this encounter Medications at Time of Discharge + + + +---------+ + + | Medication | Sig | Dispensed | Refills | Start | End Date | | | | | | Date | | + + + +---------+ + + | anastrozole | Take 1 mg by mouth | | 0 | | | | (ARIMIDEX) 1 mg | Daily. | | | | | | tablet | | | | | | + + + +---------+ + + | Ascorbic Acid | Take 1,000 mg by | | 0 | | | | (VITAMIN C) 1000 MG | mouth Daily. | | | | | | tablet | | | | | | + + + +---------+ + + | aspirin 81 mg EC | Take 81 mg by mouth | | 0 | | | | tablet | Daily. | | | | | + + + +---------+ + + | Biotin 92731 MCG | Take 1 tablet by | | 0 | | | | TABS | mouth 2 times daily. | | | | | + + + +---------+ + + | | Apply to eye. | | 0 | | | | Carboxymeth-Glycerin | | | | | | | -Polysorb (REFRESH | | | | | | | OPTIVE CARINA-3 OP) | | | | | | + + + +---------+ + + | celecoxib | Take 100 mg by mouth | | 0 | | | | (CELEBREX) 100 mg | Daily. | | | | | | capsule | | | | | | + + + +---------+ + + | cetirizine | Take 10 mg by mouth | | 0 | | | | (ZYRTEC) 10 mg | Daily. | | | | | | tablet | | | | | | + + + +---------+ + + | cholecalciferol | Take 5,000 Units by | | 0 | | | | (VITAMIN D-3) 5000 | mouth Daily. | | | | | | units TABS | | | | | | + + + +---------+ + + | Cyanocobalamin | Take 100 mg by mouth | | 0 | | | | (VITAMIN B 12 PO) | 2 times daily. | | | | | + + + +---------+ + + | cycloSPORINE | Apply to eye 2 | | 0 | | | | (RESTASIS OP) | times daily. | | | | | + + + +---------+ + + | diclofenac | Place 1 patch onto | | 0 | | | | (FLECTOR) 1.3% PTCH | the skin 2 times | | | | | | | daily. | | | | | + + + +---------+ + + | dicyclomine | Take 10 mg by mouth | | 0 | | | | (BENTYL) 10 mg | every 8 hours as | | | | | | capsule | needed. | | | | | + + + +---------+ + + | domperidone 10 mg | Take 10 mg by mouth | | 0 | | | | capsule | 3 times daily | | | | | | | (before meals). | | | | | + + + +---------+ + + | DULoxetine | Take 1 capsule by | | 12 | 01/25/20 | | | (CYMBALTA) [address] | mouth Daily. | | | 19 | | | capsule | | | | | | + + + +---------+ + + | esomeprazole | Take 40 mg by mouth | | 0 | | | | (NEXIUM) 40 mg | every morning | | | | | | capsule | (before breakfast). | | | | | + + + +---------+ + + | ferrous sulfate | Take 325 mg by mouth | | 0 | | | | 325 mg tablet | daily (with | | | | | | | breakfast). | | | | | + + + +---------+ + + | fish oil 1,000 mg | Take 1,000 mg by | | 0 | | | | capsule | mouth Daily. | | | | | + + + +---------+ + + | gabapentin | Take 300 mg by mouth | | 0 | | | | (NEURONTIN) 300 mg | 3 times daily. Has | | | | | | capsule | not filled yet | | | | | + + + +---------+ + + | levothyroxine | Take 50 mcg by mouth | | 0 | | | | (SYNTHROID) 50 mcg | every morning | | | | | | tablet | (before breakfast). | | | | | + + + +---------+ + + | loperamide | Take 2 mg by mouth 4 | | 0 | | | | (IMODIUM) 2 mg | times daily as | | | | | | capsule | needed for Diarrhea. | | | | | + + + +---------+ + + | metoprolol | Take 25 mg by mouth | | 0 | | | | succinate | 2 times daily. | | | | | | (TOPROL-XL) 25 mg 24 | | | | | | | hr tablet | | | | | | + + + +---------+ + + | Multiple | Take 1 tablet by | | 0 | | | | Vitamins-Minerals | mouth Daily. | | | | | | (AIRBORNE) CHEW | | | | | | + + + +---------+ + + | Probiotic Product | Take 1 capsule by | | 0 | | | | (PROBIOTIC DAILY PO) | mouth Daily. | | | | | + + + +---------+ + + | raNITIdine | Take 150 mg by mouth | | 0 | | | | (RANITIDINE) 75 MG | 2 times daily. | | | | | | tablet | | | | | | + + + +---------+ + + | | Take 1 tablet by | | 0 | | | | triamterene-hydrochl | mouth Daily. | | | | | | orothiazide | | | | | | | (MAXZIDE) 75-50 mg | | | | | | | per tablet | | | | | | + + + +---------+ + + | venlafaxine | Take 1 capsule by | | 12 | 01/26/20 | | | (EFFEXOR XR) 37.5 mg | mouth Daily. | | | 19 | | | 24 hr capsule | | | | | | + + + +---------+ + + documented as of this encounter Progress Notes Evelyne Pacheco MD - 02/28/2019 2:00 PM PST Radiation Oncology Follow-up Chief Complaint/ICD10 ICD-10-CM ICD-9-CM 1. 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 Invasive ductal carcinoma, grade 2, ER 100%, OR 97%, Ki-67 15%, HER-2/olivia nonamplified. Clinical stage IA, T1b N0 09/07/2018 Surgery Surgeon: Patricia Surgery indicated: lumpectomy and sentinel LN biopsy. Final pathology details: Invasive ductal carcinoma, 1.5 cm, Grade 1, associated DICS, no LVI, negative margins, 0/1 sentinel lymph nodes involved. Pathologic Stage IA: T1c N0 10/27/2018 - 11/17/2018 Radiation Therapy Right breast 4256 cGy over 16 fractions Azalia Marks completed radiation 3 months ago, she returns for routine follow-up. During treatment she reported dysphagia, felt to be unrelated to breast cancer or radiation treatment. Swallow study performed on 11/05/18 demonstrated osteophyte protrusion interferi ng with esophageal transit. She was offered referral to neurosurgery, she deferred at this time. She may consult with a group in [facility], whom she is working with the past. She did discontinue exogenous hormone replacement and on 12/01/18 - started anastrozole . S he is following with Dr. Lazo in [place], and I think that she is taking a break fr endocrine therapy due to side effects. She reports feeling very tired and sleeping most of the day. She also reports worsening generalized joint pain and headaches. No new focal areas of skeletal pain. She does not report any bothersome breast symptoms apart from mild discomfort occasionally. No lumps or nodules. General health: Stable Ongoing treatment: None Review of systems: Constitutional: Reports feeling very tired, sleeping up to 14 hours/day. Reports had fever shaking chills with recent UTI with hospitalization. Denies anorexia, nausea, vomiting, w eight loss, or night sweats. Appetite without changes. Ear, Nose, Mouth, Throat: Reports difficulty swallowing, unchanged. Cardiovascular: Reports dyspnea on exertion. Denies chest pain, palpitations or orthopnea . Respiratory:Reports chronic cough. Denies hemoptysis, or sputum production. Gastrointestinal: Reports diarrhea this AM. Denies abdominal pain, constipation, melena, or bright red blood per rectum. Genitourinary: Denies hematuria or dysuria. Musculoskeletal: Reports general joint pain. Neurologic: Reports headaches, this has been since fall a few years ago, has tender area to head. Reports numbness in hands first thing in AM. Unchanged. Denies visual changes, or numbness/tingling of the extremities. Endocrine: Denies peripheral edema or heat/cold intolerance. Hematologic: Denies spontaneous bruising or bleeding. Integumentary: Denies rash, wounds or other skin concerns. Pain: Denies pain. Note: Patient here for follow up for right breast cancer. Denies right breast pain, report s some itching to left breast about a week ago. Reports swelling to right breast that comes and goes. Notes a new lump to left breast. My chart: Declined Pain assessment: Location: NA Pain Level: PAIN PROG PAIN LEVEL: 0 Current Outpatient Medications Medication Sig Dispense Refill Ascorbic Acid (VITAMIN C) 1000 MG tablet Take 1,000 mg by mouth Daily. aspirin 81 mg EC tablet Take 81 mg by mouth Daily. Biotin 66384 MCG TABS Take 1 tablet by mouth 2 times daily. Vnkbvnubfop-Ghyvkecd-Fjmjbfok (REFRESH OPTIVE CARINA-3 OP) Apply to eye. [...] by mouth 3 times daily (before meals). DULoxetine (CYMBALTA) [address] capsule Take 1 capsule by mouth Daily. 12 esomeprazole (NEXIUM) 40 mg capsule Take 40 mg by mouth every morning (before breakfast ). ferrous sulfate 325 mg tablet Take 325 mg by mouth daily (with breakfast). fish oil 1,000 mg capsule Take 1,000 mg by mouth Daily. gabapentin (NEURONTIN) 300 mg capsule Take 300 mg by mouth 3 times daily. Has not fille d yet levothyroxine (SYNTHROID) 50 mcg tablet Take 50 [...] Take 1 tablet by mouth Da louisa. venlafaxine (EFFEXOR XR) 37.5 mg 24 hr capsule Take 1 capsule by mouth Daily. 12 No current facility-administered medications for this encounter. Allergies Allergen Reactions Cephalexin Other (See Comments) PASS OUT Codeine Other (See Comments) "CRAZY" Propoxyphene Other (See Comments) HYPER Sulfa Antibiotics Rash Adhesive & Tape Itching Intolerance No active intolerances/contraindications Vitals: 02/28/19 1356 BP: 122/61 Pulse: 76 Resp: 16 Temp: 36.4 C (97.5 F) PainSc: 0 - No pain Wt Readings from Last 3 Encounters: 02/28/19 70 kg (154 lb 5.2 oz) 11/11/18 70.9 kg (156 lb 4.9 oz) 11/04/18 69.5 kg (153 lb 3.5 oz) Physical Exam: General: Healthy appearing female in no acute medical distress. KPS: 70% HEENT: Pupils equal, round and reactive to light. No conjunctival icterus or injection. EOM I. Oral, moist mucus membranes. Lymphatic: No cervical, supraclavicular or axillary lymphadenopathy. Cardiovascular: Regular rate and rhythm, no murmur. Pulmonary: Breath sounds heard throughout, no adventitial sounds or increased work of breat yo at rest. Extremities: Upper and lower extremities warm and well perfused with no upper or lower extr emity edema. Neurologic: Alert, oriented and appropriated in conversation. CN II-IX grossly intact. Moves all 4 extremities normally with normal gait. Psychiatric: Appropriate. Breast: Exam performed in the presence of a care professional. On upright exam breasts appear symm etric bilaterally with no contour abnormalities or malignant appearing skin changes. Tender scar tissue to right side. The right breast demonstrates a well-healed surgical incision. On supine exam palpation of the right breast demonstrates Dense tissue retro areola on the right breast. No discrete mass lesions are identified in either breast. There is no pain w ith palpation. No nipple changes. Labs: No recent results. Imaging: No recent relevant results. Assessment: ICD-10-CM ICD-9-CM 1. 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 She is taking a break from arom atase inhibitor, she is advised to follow-up with Dr. Lazo for further guidance. His tory of depression and anxiety are also likely contributing to her difficulty coping with ph ysical symptoms. She is encouraged to continue follow-up with her primary care physician to manage psychoactive medications. Clinical exam demonstrates dense tissue in the right breast, retroareolar. Likely related to fibrosis from prior surgery, however given density I have recommended ultrasound. Plan: Right breast ultrasound to be done now to evaluate dense tissue retro areola on the right b reast Follow-up with Dr. Pacheco in 6 months Labs: none Imaging: Bilateral screening mammogram due in July, as scheduled Medication changes: none Referrals: none Follow-up with Dr. Lazo as directed. Alternation of follow-up between providers an ticipated. Self-care recommendations: Work to increase your activity to help with mood issues, continu e to follow with primary care provider concerning medications. Orders Placed This Encounter Procedures US Breast Limited Right Standing Status: Future Standing Expiration Date: 02/29/2020 Scheduling Instructions: to evaluate dense tissue retro areola on the right breast Order Specific Question: Reason for exam: Answer: to evaluate dense tissue retro areola on the right breast Order Specific Question: What is the preferred imaging location? Answer: Non-[facility] location Order Specific Question: Do you authorize additional tests as indicated to include diag nostic mammography, axilla ultrasound, breast ultrasound, and/or breast biopsy? Answer: Yes Order Specific Question: Confirm breast laterality: Answer: Right Thank you for allowing me to participate in the care of Azalia Marks. If you should have any questions regarding this evaluation, please do not hesitate to contact me. Evelyne Pacheco M.D. Radiation Oncologist Department of Radiation Oncology [facility] Office: [phone] signed by Evelyne Pacheco MD at 05/06/2019 5:12 PM [address]documented in this encounter Plan of Treatment +--------+ [...] | | | | | | [place] [address] | | | | | | [phone] | | | | | | | | +--------+ + + + + + +---------+--------+ + + | Name | Type | Priori | Associated Diagnoses | Order Schedule | | | | ty | | | + +---------+--------+ + + | US Breast Limited | Imaging | Routin | Infiltrating | Expected: | | Right | | e | ductal carcinoma of | 02/28/2019, Expires: | | | | | upper-outer quadrant | 02/29/2020 | | | | | of right breast in | | | | | | female (HCC) | | | | | | Abnormal breast exam | | + +---------+--------+ + + documented as of this encounter [...] + + documented in this encounter Results IMAGING REPORT - EXTERNAL SCAN (09/28/2019 12:00 AM PDT) + + + | Narrative | Performed At | + + + | Ordered by an | | | unspecified provider. 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
--- OUTSIDE RECORDS SUMMARY | ~2019-11-25 | XMS | Encounter Summary ---
Demographics + + + | Address | [address] | | | [place] [address] | + + + | Home Phone | | + + + | Preferred Language | Unknown | + + + | Marital Status | | + + + | Worship Affiliation | Unknown | + + + | Race | Unknown | + + + | Ethnic Group | Unknown | + + + Author + + + | Author | [facility] | | | and [place] | + + + | Organization | [facility] | | [...] Team Providers + +------+ + | Care Fuels Engineer Name | Role | Phone | + +------+ + | Gopal Hill DO | PCP | | + +------+ + Reason for Visit +--------+--------+ + | Reason | Onset | Comments | | | Date | | +--------+--------+ + | Other | 08/02/ | | | | 2020 | | +--------+--------+ + Encounter Details +--------+ + + + + | Date | Type | Department | Care Team | Description | +--------+ + + + + | 08/02/ | Telephone | [facility] | Evelyne Pacheco | Other | | 2020 | | MED CTR RAD[facility]ATION | MD [facility] [address] | | | | | ONCOLOGY CLINIC [address] | [place], [place] | | | | | [address] [facility] | [address] | | | | | [place] [address] | | | | | | [phone] | | | +--------+ + + + [...] Telephone Encounter - Mehnaz Carias RN - 08/03/2019 12:14 PM PDTPatient calls to cancel her appointment today. She states this is the 4th bout of diarrhea she has had this month. She has a history of diverticulosis and stomach surgery, so these are not new issues for her . She follows with Dr. Cabrales for this. She states she has a phone appointment with her PCP this week. I encouraged her to also call Dr. Cabrales if these symptoms do not improve. She st ates she will call us next week to reschedule. documented in this encounter Plan of Treatment +--------+ + + + + | Date | Type | Specialty | Care Team | Description | +--------+ + + + + | 01/10/ Appointment | Radiation Oncology | Yarely Jonas | | | 2019 | | | [facility] [address] [address] | | | | | | [address] | | | | | | [place] [address] | | | | | | [phone] | | | | | | | | +--------+ + + + + documented as of this encounter Visit Diagnoses Not on filedocumented in this encounter"
--- OUTSIDE RECORDS SUMMARY | ~2019-11-25 | XMS | Encounter Summary ---
Demographics + + + | Address | [address] | | | [place] [address] | + + + | Home Phone | | + + + | Preferred Language | Unknown | + + + | Marital Status | | + + + | Congregational Affiliation | Unknown | + + + | Race | Unknown | + + + | Ethnic Group | Unknown | + + + Author + + + | Author | [facility] | | | and [place] | + + + | Organization | [facility] | | [...] Team Providers + +------+ + | Care Shipping Hand Name | Role | Phone | + [...] | | | [address] | [place] [address] | | | | | [place] [address] | | | | | | [phone] | | | +--------+ + + + [...] | | | | | | [place] [address] | | | | | | [phone] | | | | | | | | +--------+ + + + + documented as of this encounter Procedures + +--------+ + + + | Procedure Name | Priori | Date/Time | Associated Diagnosis | Comments | | | ty | | | | + +--------+ + + + | CARMITA PROCEDURAL RIGHT | Routin | 09/07/2018 | | Results for this | | | e | 12:10 AM | | procedure are in the | | | | PDT | | results section. | + +--------+ + + + documented in this encounter Results CARMITA Procedural Right (09/07/2018 12:10 AM PDT) + + | Specimen | [...]
--- OUTSIDE RECORDS SUMMARY | ~2019-11-25 | XMS | Encounter Summary ---
Demographics + + + | Address | [address] | | | [place] [address] | + + + | Home Phone | | + + + | Preferred Language | Unknown | + + + | Marital Status | | + + + | Faith Affiliation | Unknown | + + + | Race | Unknown | + + + | Ethnic Group | Unknown | + + + Author + + + | Author | [facility] | | | and [place] | + + + | Organization | [facility] | | [...] Team Providers + +------+ + | Care Operations Logistics Analyst Name | Role | Phone | + +------+ + | Gopal Hill DO | PCP | | + +------+ + Reason for Visit +--------+--------+ + | Reason | Onset | Comments | | | Date | | +--------+--------+ + | Other | 10/05/ | | | | 2019 | | +--------+--------+ + Encounter Details +--------+ + + + + | Date | Type | Department | Care Team | Description | +--------+ + + + + | 10/05/ | Telephone | [facility] | Ayaka Manrique RN | Other | | 2019 | | [facility] | | | | | [facility] [address] | | | | | | [address] | | | | | | [place] [address] | | | | | | [phone] | | | +--------+ + + + [...] Telephone Encounter - Ayaka Manrique RN - 10/05/2018 12:29 PM Austin was screened for her editary cancers and base on the information she provided there are no red flags to indicate further genetic testing at this time.Electronically signed by Ayaka Manrique RN at 12:29 PM PDTdocumented in this encounter Plan of [...] | | | | | [place] [address] | | | | | | [phone] | | | | | | | | +--------+ + + + + documented as of this encounter Visit Diagnoses Not on filedocumented in this encounter"
--- OUTSIDE RECORDS SUMMARY | ~2019-11-25 | XMS | Encounter Summary ---
Demographics + + + | Address | [address] | | | [place] [address] | + + + | Home Phone | | + + + | Preferred Language | Unknown | + + + | Marital Status | | + + + | Baptism Affiliation | Unknown | + + + | Race | Unknown | + + + | Ethnic Group | Unknown | + + + Author + + + | Author | [facility] | | | and [place] | + + + | Organization | [facility] | | | and [place] | + + + | Address | Unknown | + + + | Phone | Unavailable | + + + Support + + +---------+ + | Name | Relationship | Address | Phone | + + +---------+ + | Casandra Winston | ECON | Unknown | | + + +---------+ + | Katherin Galvan | ECON | Unknown | | + + +---------+ + Care Team Providers + +------+ + | Care Promotions Assistant Name | Role | Phone | + +------+ + PCP | Unavailable | + +------+ + Encounter Details +--------+ + + + + | Date | Type | Department | Care Team | Description | +--------+ + + + + | 11/01/ | Hospital | [facility] | Conversion | Thoracic back pain | | 2012 | Encounter | CONVERSION [address] | Transaction, | | | | | [address] | Provider Unknown | | | | | [place], [place] | [phone] | | | | | [address] | | | | | | [phone] | | | +--------+ + + + [...] [address] | | | | | | [place] [address] | | | | | | [phone] | | | | | | | | +--------+ + + + + documented as of this encounter Procedures + +--------+ + + + | Procedure Name | Priori | Date/Time | Associated Diagnosis | Comments | | | ty | | | | + +--------+ + + + | MRI THORACIC SPINE | Routin | 10/13/2012 | | Results for this | | WO CONTRAST | e | 12:08 PM | | procedure are in the | | | | PDT | | results section. | + +--------+ + + + documented in this encounter Results MRI Thoracic Spine wo Contrast (10/13/2012 12:08 PM PDT) + + | Specimen | + + | | + + + + + | Narrative | Performed At | + + + | This is a non-reportable procedure without a radiologist report and | | | is used for image storage only | | + + + + + | Procedure Note | + + | AlessandroMikey Conversion - 12/03/2018 6:59 PM PDT This is a non-reportable procedure | | without a radiologist report and isused for image storage only | + + documented in this encounter Visit Diagnoses + + | Diagnosis | + + | Thoracic back pain Pain in thoracic spine | + + documented in this encounter"
--- OUTSIDE RECORDS SUMMARY | ~2019-11-25 | XMS | Encounter Summary ---
Demographics + + + | Address | [address] | | | [place] [address] | + + + | Home Phone | | + + + | Preferred Language | Unknown | + + + | Marital Status | | + + + | Quaker Affiliation | Unknown | + + + | Race | Unknown | + + + | Ethnic Group | Unknown | + + + Author + + + | Author | [facility] | | | and [place] | + + + | Organization | [facility] | | | [...] Team Providers + +------+ + | Care Pharmaceutical Physician Name | Role | Phone | + +------+ + | Gopal Hill DO | PCP | | + +------+ + Reason for Visit + +--------+ + | Reason | Onset | Comments | | | Date | | + +--------+ + | Patient Concerns | 12/07/ | | | | 2019 | | + +--------+ + Encounter Details +--------+ + + + + | Date | Type | Department | Care Team | Description | +--------+ + + + + | 12/07/ | Telephone | [facility] | Evelyne Pacheco | Patient Concerns | | 2019 | | [facility] | [facility] [place] [address] | | | | | [facility]OGY CLIN[facility] [address] | [place], [place] | | | | | [facility] | [address] | | | | | [place] [address] | | | | | | [phone] | | | +--------+ + + + [...] Telephone Encounter - Mehnaz Carias RN - 12/09/2018 3:44 PM PDTI have made several atte mpts to reach patient, I do not see that an MRI was ordered by Dr. Pacheco. I have left mul tiple message for patient to call me back is there is anything we can assist her with. Elec tronically signed by Mehnaz Carias RN at 12/09/2018 3:45 PM PDTTelephone Encounter - Mehnaz Thomason RN - 12/07/2018 3:41 PM PDTAttempted to call patient back, unable to reach, le ft message for her to call back. elephone Encounter - Amber Cade - 12/07/2018 2:38 PM PDTRose called statin g that she panicked and was not able to get through the MRI in [place] on Thursday. She was very upset on the phone and stated that maybe she would do better with an MRI in [facility] because we give her the are she needs and she doesn't get that in [place]. Please return call, thank you. documented in [...] [address] | | | | | | [place] [address] | | | | | | [phone] | | | | | | | | +--------+ + + + + documented as of this encounter Visit Diagnoses Not on filedocumented in this encounter"
--- OUTSIDE RECORDS SUMMARY | ~2019-11-25 | XMS | Encounter Summary ---
Demographics + + + | Address | [address] | | | [place] [address] | + + + | Home Phone | | + + + | Preferred Language | Unknown | + + + | Marital Status | | + + + | Anabaptism Affiliation | Unknown | + + + | Race | Unknown | + + + | Ethnic Group | Unknown | + + + Author + + + | Author | [facility] | | | and [place] | + + + | Organization | [facility] | | | [...] Team Providers + +------+ + | Care Deckhand Engineer Name | Role | Phone | [...] | | | [address] | [place] [address] | | | | | [place] [address] | | | | | | [phone] | | | +--------+ + + + [...] | | | | | | [place] [address] | | | | | | [phone] | | | | | | | | +--------+ + + + + documented as of this encounter Procedures + +--------+ + + + | Procedure Name | Priori | Date/Time | Associated Diagnosis | Comments | | | ty | | | | + +--------+ + + + | US GUIDED BREAST LOC | Routin | 09/07/2018 | | | | DEVICE PLACEMENT | e | 12:00 AM | | | | RIGHT | | PDT | | | + +--------+ + + + documented in this encounter Results US Guided Breast Loc Device Placement RT (09/07/2018 12:00 AM PDT) + + | Specimen [...]
--- OUTSIDE RECORDS SUMMARY | ~2019-11-25 | XMS | Encounter Summary ---
Demographics + + + | Address | [address] | | | [place] [address] | + + + | Home Phone | | + + + | Preferred Language | Unknown | + + + | Marital Status | | + + + | Scientology Affiliation | Unknown | + + + | Race | Unknown | + + + | Ethnic Group | Unknown | + + + Author + + + | Author | [facility] | | | and [place] | + + + | Organization | [facility] | | | [...] Team Providers + +------+ + | Care Fire Hose Curer Name | Role | Phone | + +------+ + | Gopal Hill DO | PCP | | + +------+ + Encounter Details +--------+ + + + + | Date | Type | Department | Care Team | Description | +--------+ + + + + | 11/05/ | Hospital | [facility] | Evelyne Pacheco | Oral phase dysphagia | | 2019 | Encounter | MED CTR XRAY [address] M, [address] | | | | | [place] | [place], [place] | | | | | [facility] [place] [address] | [address] | | | | | [phone] | | | | | | | Angela Aponte, | | | | | | Speech Pathologist | | | | | | [address] | | | | | | [place], [place] | | | | | | [id number] | | | | | | | | | | | | Rad, [facility] | | +--------+ + + + + [...] + + + +---------+--------+ + | Biotin 41017 MCG | Take 1 tablet by | [...] documented as of this encounter Progress Notes Angela Aponte, Speech Pathologist - 11/07/2018 7:35 PM PDTFormatting of this note might b e different from the original. Speech Therapy Plan of Care Date: 11/07/2018 Patient Name: Azalia Marks Date of : 1940 Encounter Diagnoses Code Name Primary? R13.11 Oral phase dysphagia Date of Onset: 11/05/2017 Start of Care Date: 11/05/2018 Requested # of Visits: 1 visit Certification From: 11/05/2018 Certification To: 11/05/2018 Clinical Impressions: Patient presents to speech therapy with difficulty swallowing. Object mary exam reveals impairments with oral phase of swallow as evidenced by decreased masticatio n ability, increased choking episodes, feeling food sticking; and also feeling foods stickin g in throat. These impairments and diagnosis are causing functional limitations with patient 's inability to efficiently consume intake orally, increased choking incidents affecting par ticipation in the following activities: social eating events, eating, unable to fully enjoy certain foods, change in quality of life, discomfort. Signs and symptoms are consistent with oral phase dysphagia, airway compromise, possible contribution of discomfort and change in sensation from large osteophytes seen on imaging, and possible exacerbation of GERD despite medication management. Complexities contributing to frequency and duration of therapy: None. Please see MBSS/VFSS report for further details of findings. Goals: Additional PAVING CONTRACTOR Goals OP PAVING CONTRACTOR Goals: Goal 1, Goal 2 Goal 1: Pt will participate in MBSS/VFSS to determine cause/severity of dysphagia and updat e POC Goal 1 Status: Completed Goal 2: Pt will be provided with education of swallow, diet recommendations, compensatory s trategies, and handouts of recommendations. Goal 2 Status: Completed Treatment Plan/Interventions 32530 - Motion Fluroroscopy/Swallow Evaluation Electronically signed by: Angela Aponte, Speech Pathologist, 11/07/2018 19:35 Patient Name: Azalia Marks/: 1940/ Angela Guerra, Sp eech Pathologist - 11/05/2018 5:48 PM PDTFormatting of this note might be different from th e original. [facility] CTR XRAY [address] [facility] [address] Speech Therapy VFSS/MBS Evaluation Date: 11/05/18 Patient Information Patient Name: Azalia Marks Date of : 1940 Age: 78 y.o. DYSPHAGIA DIAGNOSIS: Mild dysphagia - oral phase dysphagia present, which can be managed by specific swallow suggestions. Slight modification in consistency of diet may be indicated. DIET RECOMMENDATIONS: Foods: Level 2: Mechanical Soft - Chopped Extra sauces/gravies Meats/vegetables cooked soft and tender Drinks: Thin liquids with meals and Thin liquids between meals STRATEGIES: Posture: Sitting upright (90 degrees) Behavior: Small bites or sips, Alternate liquids and solids, Control rate and amount, Effortful swall ow and Double swallow SUBJECTIVE: History of Presenting Problem: Azalia Marks is a 78 y.o. female who pres ents for a VFSS/MBS evaluation due to experiencing the following symptoms often per pt repor t: excessive coughing, drooling, dry mouth, food sticking in throat, heartburn, nasal regurg itation, nausea/vomiting. Pt reporting experiencing these symptoms on and of over the past s everal years. She reported that she cannot eat popcorn, rice, and do pills without having so me difficulty choking on them. Pain Assessment: Pain Scale Used: NUMERIC Pain Rating Pre Assessment: 4 Location: Neck, shoulders, lower back ASSESSMENT: Patient presents to speech therapy with difficulty swallowing. Objective exam reveals imp airments with oral phase of swallow as evidenced by decreased mastication ability, increased choking episodes, feeling food sticking; and also feeling foods sticking in throat despite no residue. These impairments and diagnosis are causing functional limitations with patient s inability to efficiently consume intake orally, increased choking incidents affecting pa rticipation in the following activities: social eating events, eating, unable to fully enjoy certain foods, change in quality of life, discomfort. Signs and symptoms are consistent wit h oral phase dysphagia, possible contribution of discomfort and change in sensation from lar ge osteophytes seen on imaging, and possible exacerbation of GERD despite medication managem ent. Complexities contributing to frequency and duration of therapy: None. Azalia was seen for a Modified Barium Swallow study (MBS) to determine cause and severity of dysphagia. Chart review reveals history of Fibromyalgia, cancer of breast, dysphagia, GERD , HTN. Azalia was challenged with puree, ground solids 1/4 inch, chopped solids 1/2 inch, mixed mary d and liquid, cracker and thin liquid by tsp, cup, straw mixed with barium under fluoroscopy using the right lateral view. She did demonstrate shallow in and out laryngeal penetration with consecutive sips of thin by cup but no tracheal aspiration during the MBS with all oth er solids and liquids. Imaging indicated prominent anterior cervical vertebral osteophytes. These are potentially contributing to Azalia's sensation of material sticking in throat. Signi ficant number of missing dentition are likely contributing to oral phase dysphagia and reduc ed mastication ability resulting in posterior escape of whole pieces of solids. Possible cho august risk. Pt also presenting with multiple s/sx of acid reflux exacerbation. Azalia did not demonstrate deficits with oral coordination; did demonstrate deficits with ora l clearance which led to collection of residue on oral structures, and did demonstrate defic its with oral control which led to which led to posterior escape of unchewed solid pieces an d escape of bolus to floor of mouth. She did not demonstrate deficit with pharyngeal coordination, did demonstrate deficits with pharyngeal clearance which led to trace collection of residue on pharyngeal structures, and did not demonstrate deficit with pharyngeal sensation. She did demonstrate deficits with airway protection which led to shallow in and out penetr ation of thin liquids. She did not demonstrate deficit with esophageal clearance. Strategies attempted were: Outcome: - Chin tuck successful - Double swallow successful - Effortful swallow successful - Liquid wash successful - Slow pacing successful - Vary bolus size successful - Use of adaptive utensils not tested See below for details on the oral motor exam, and detailed observations noted per swallow p hase. PAVING CONTRACTOR explained the results of the MBS using visuals, test slides, handouts and demonstration . PAVING CONTRACTOR educated on diet recommendations, postural strategies, behavioral strategies and oral motor exercises. See above for PAVING CONTRACTOR diet recommendation. It is recommended that Azalia consult with PCP to further discuss effectiveness of current GERD medications - may need adjustment ; consult with dentist/obtain partial dentures for improved mastication ability. Thank you f or this referral. Swallow Function: Behavior: alert Respiration: WNL; room air Lips: WNL ROM/strength Buccal: WNL ROM/strength Jaw: WNL ROM/strength Lingual: WNL ROM/strength Teeth: Intact Dentures: Upper, missing sever molar teeth on lower jaw Clinical Laboratory Technician: equal Speech: Vincentian speaking, WNL Volitional swallow: oral delay, premature spillage to the valleculae, penetration, residue in the valleculae Volitional cough: effective Mucosa: Dry Voice: Hoarse sounding Neck: WFL VSFF: Rosenbek's Penetration Aspiration Scale Results 2 - contrast enters airway, remains above the vocal cords, no residue remains (penetration) MBS Overall Impression Scores 1. Lip Closure: 1 - Interlabial escape no progression to anterior lip 2. Tongue Control During Bolus Hold: 1 - Escape to lateral buccal cavity floor of mouth (F OM) 3. Bolus Preparation / Mastication 1 - Slow prolonged chewing/mashing with complete re-mark ection 4. Bolus Transport / Lingual Motion 0 - Brisk tongue motion 5. Oral Residue 2 - Residue collection on oral structures 6. Initiation of Pharyngeal Swallow 1 - Bolus head in valleculae 7. Soft Palate Elevation 0 - No bolus between soft palate and pharyngeal wall 8. Laryngeal Elevation 1 - Partial superior movement of thyroid cartilage/partial approxima tion of arytenoids to epiglottic petiole 9. Anterior Hyoid Excursion 0 - Complete anterior movement 10. Epiglottic Movement 0 - Complete inversion 11. Laryngeal Vestibular Closure - Height of Swallow 0 - Complete, no air/contrast in laryn geal vestibule 12. Pharyngeal Stripping Wave 0 - Present, complete 13. Pharyngeal Contraction (A/P VIEW ONLY) Did not test AP view 14. Pharyngoseophageal Segment Opening 0 - Complete distension and complete duration, no ob struction of flow 15. Tongue Base Retraction 1 - Trace column of contrast or air between tongue base and phar yngeal wall 16. Pharyngeal Residue 1 - Trace residue within or on pharyngeal structures 17. Esophageal Clearance Upright Position 0 - Complete clearance, esophageal coating Comments: Shallow in and out penetration of consecutive sips of thin liquids. No other inst ance of penetration or aspiration noted with solids or liquids. Strategies: Small, single sips/bites. Slow eating rate. Effortful swallow, double swallow. Functional Oral Intake Scale (FOIS): Azalia scored 5/7 on the FOIS indicating she can tolerate total oral intake of multiple consi stencies requiring special preparation. Total Oral Intake : Total oral intake of multiple consistencies requiring special preparati on Interpretation: Number Definition 1 No oral intake 2 Tube dependence with minimal / inconsistent oral intake 3 Tube supplements with consistent oral intake 4 Total intake of a single consistency 5 Total oral intake of multiple consistencies requiring special preparation 6 Total oral intake with no special preparation, but must avoid specific foods and liquid i tems 7 Total oral intake with no restrictions For more information, please visit: https://www.ncbi.nlm.nih.gov/pubmed/98984763 Dysphagia Outcome and Severity Scale: Azalia is currently at a Level 5 - mild dysphagia: distant supervision, may need one diet con sistency restricted. This score indicates full per-oral nutrition (P.O.) with modified diet and/or independence is appropriate.. Azalia may exhibit one or more of the following: Mild oral dysphagia with reduced mastication and/or oral retention that is cleared spontane ously" Interpretation: Level As Indicated by: Full per-oral nutrition (P.O.): Normal Diet Level 7: Normal in all situations Level 6: Within functional limits/modified independence Full P.O.: Modified diet and/or independence Level 5: Mild dysphagia: Distant supervision, may need one diet consistency restricted Level 4: Mild-moderate dysphagia: Intermittent supervision/cueing, one or two consistencies restricted Level 3: Moderate dysphagia: Total assist, supervision, or strategies, two or more consiste ncies Non-oral nutrition necessary Level 2: Moderately severe dysphagia: Maximum assistance or use of strategies with partial P.O. only (tolerates at least one consistency safely with total use of strategies) Level 1: Severe dysphagia: NPO: Unable to tolerate any P.O. Safely For more information, please visit: https://www.ncbi.nlm.nih.gov/pubmed/28450780 REHABILITATION POTENTIAL: Patient demonstrates good potential to achieve established goals and to address the above documented impairments and to reach the following functional goals by participating in skilled speech language pathology therapy services. Goals: Additional PAVING CONTRACTOR Goals OP PAVING CONTRACTOR Goals: Goal 1, Goal 2 Goal 1: Pt will participate in MBSS/VFSS to determine cause/severity of dysphagia and updat e POC Goal 1 Status: Completed Goal 2: Pt will be provided with education of swallow, diet recommendations, compensatory s trategies, and handouts of recommendations. Goal 2 Status: Completed Plan Date of Onset: 11/05/2017 Start of Care Date: 11/05/2018 Requested # of Visits: 1 visit Certification From: 11/05/2018 Certification To: 11/05/2018 Treatment Plan/Interventions 17438 - Motion Fluroroscopy/Swallow Evaluation Patient and/or family has indicated understanding of treatment needs and actively participa dana in the creation of this plan for care. Start Time: 1500 Stop time: 1600 Duration: 60 minutes Timed Treatment Codes: 0 minutes History Encounter Diagnoses Code Name Primary? R13.11 Oral phase dysphagia Date of Onset: 11/05/2017 Referring Provider: Evelyne Pacheco MD Rehab Precautions Fluoroscopy Exam from 11/05/2018 in [facility] CTR XRAY Rehab Precautions Precautions None Rehab Learning Style Fluoroscopy Exam from 11/05/2018 in [facility] XRAY Learning Style Patient's [employer] Learning Style observation Electronically signed by: Angela Aponte Speech Pathologist, 11/05/2018 17:48 Patient Name: Azalia Marks/: 1940/ docume nted in this encounter Plan of Treatment +--------+ + + + + | Date | Type | Specialty | Care Team | Description | +--------+ + + + + | 01/10/ | Appointment | Radiation Oncology | Yarely Jonas | | | 2019 | | | [facility] [address] | | | | | | [place] | | | | | | [place] [address] | | | | | | [phone] | | | | | | | | +--------+ + + + + documented as of this encounter Procedures + +--------+ + + + | Procedure Name | Priori | Date/Time | Associated Diagnosis | Comments | | | ty | | | | + +--------+ + + + | FL VIDEO SWALLOW W | Routin | 11/05/2018 | Oral phase | Results for this | | SPEECH | e | 3:26 PM | dysphagia | procedure are in the | | | | PDT | | results section. | + +--------+ + + + documented in this encounter Results FL Video Swallow w Speech (11/05/2018 3:26 PM PDT) + + | Specimen | + + | | + + + + + | Narrative | Performed At | + + + | MODIFIED BARIUM SWALLOW 11/05/2018 3:07 PM CLINICAL HISTORY: | [facility] | | dysphagia COMPARISON: None available TECHNIQUE: In the upright | | | position, the patient was challenged with various barium laden | | | foods. Fluoroscopy was utilized to evaluate swallow function. The | | | exam was directed by the speech therapist. FINDINGS: The patient | | | was challenged with various consistencies of solid food as well as | | | thin liquid. There was decreased mastication with collection of | | | residue on oral structures, and dry mouth likely contributing. | | | Escape to the floor of the mouth was noted. There was shallow in | | | and out laryngeal penetration with consecutive sips of liquid but no | | | aspiration or laryngeal penetration otherwise. Prominent anterior | | | cervical vertebral osteophytes were noted and likely contributed to | | | patient sensation of material sticking in this region. IMPRESSION | | | - 1. ORAL DYSPHAGIA WITH PROMINENT CERVICAL VERTEBRAL OSTEOPHYTES | | | POTENTIALLY CONTRIBUTING TO SENSATION OF DYSPHAGIA. PLEASE SEE THE | | | SPEECH THERAPY REPORT FOR FURTHER DETAILS. Dictated and Signed | | | by: Andrés Bhat MD Electronically signed: 11/05/2018 4:27 PM | | + + + + + | Procedure Note | + + | Alessandro, Rad Results In - 11/05/2018 4:30 PM PDT MODIFIED BARIUM SWALLOW 11/05/2018 3:07 | | PMCLINICAL HISTORY: dysphagiaCOMPARISON: None availableTECHNIQUE: In the upright | | position, the patient was challenged with variousbarium laden foods. Fluoroscopy was | | utilized to evaluate swallow function. Theexam was directed by the speech | | therapist.FINDINGS: The patient was challenged with various consistencies of solid food | | aswell as thin liquid. There was decreased mastication with collection of residueon | | oral structures, and dry mouth likely contributing. Escape to the floor ofthe mouth was | | noted. There was shallow in and out laryngeal penetration withconsecutive sips of | | liquid but no aspiration or laryngeal penetration otherwise. Prominent anterior cervical | | vertebral osteophytes were noted and likelycontributed to patient sensation of material | | sticking in this region.IMPRESSION -1. ORAL DYSPHAGIA WITH PROMINENT CERVICAL | | VERTEBRAL OSTEOPHYTES POTENTIALLYCONTRIBUTING TO SENSATION OF DYSPHAGIA. PLEASE SEE THE | | SPEECH THERAPY REPORTFOR FURTHER DETAILS.Dictated and Signed by: Andrés Bhat MD | | Electronically signed: 11/05/2018 4:27 PM | |consecutive sips of liquid but no aspiration or laryngeal penetration otherwise. | | Prominent anterior cervical vertebral osteophytes were noted and likely | |contributed to patient sensation of material sticking in this region. | | | |IMPRESSION - | |1. ORAL DYSPHAGIA WITH PROMINENT CERVICAL VERTEBRAL OSTEOPHYTES POTENTIALLY | |CONTRIBUTING TO SENSATION OF DYSPHAGIA. PLEASE SEE THE SPEECH THERAPY REPORT | |FOR FURTHER DETAILS. | | | |Dictated and Signed by: Andrés Bhat MD | | Electronically signed: 11/05/2018 4:27 PM | + + + +---------+ + + | Performing | Address | City/State/Zipcode | Phone Number | | Organization | | | | + +---------+ + + | [facility] | | | | + +---------+ + + documented in this encounter Visit Diagnoses + + | Diagnosis | + + | Oral phase dysphagia Dysphagia, oral phase | + + documented in this encounter Administered Medications + +--------+ +--------+------+------+ | Medication Order | MAR | Action | Dose | Rate | Site | | | Action | Date | | | | + +--------+ +--------+------+------+ | barium (E-Z-HD) 98% contrast | Given | 11/06/19 | 10 mLs | | | | suspension 10 mL 10 mL, Oral, | | 19 3:25 | | | | | ONCE PRN, Other, Starting Fri | | PM PDT | | | | | 11/05/18 at 1524, For 1 dose, | | | | | | | Shake well., | | | | | | + +--------+ +--------+------+------+ +---+---+ | | | +---+---+ + +-------+ + +---+---+ | barium (E-Z-PASTE) 60% | Given | 11/06/19 | 1 | | | | esophageal cream 1 Application 1 | | 19 3:25 | Applicat | | | | Application, Oral, ONCE PRN, | | PM PDT | ion | | | | Other, Starting 11/05/18 at | | | | | | | 1524, For 1 dose | | | | | | + +-------+ + +---+---+ +---+---+ | | | +---+---+ + +-------+ +--------+---+---+ | barium (LIQUID E-Z-PAQUE) 60% | Given | 11/06/19 | 25 mLs | | | | contrast suspension 25 mL 25 mL, | | 19 3:25 | | | | | Oral, ONCE PRN, Other, Starting | | PM PDT | | | | | 11/05/18 at 1524, For 1 dose, | | | | | | | Leobardo traore., | | | | | | + +-------+ +--------+---+---+ +---+---+ | | | +---+---+ documented in this encounter
--- OUTSIDE RECORDS SUMMARY | ~2019-11-25 | XMS | Encounter Summary ---
Demographics + + + | Address | [address] | | | [place] [address] | + + + | Home Phone | | + + + | Preferred Language | Unknown | + + + | Marital Status | | + + + | Hindu Affiliation | Unknown | + + + | Race | Unknown | + + + | Ethnic Group | Unknown | + + + Author + + + | Author | [facility] | | | and [place] | + + + | Organization | [facility] | | | [...] Team Providers + +------+ + | Care Automobile Mechanic Supervisor Name | Role | Phone | + +------+ + | Gopal Hill DO | PCP | | + +------+ + Encounter Details +--------+ + + + + | Date | Type | Department | Care Team | Description | +--------+ + + + + | 11/17/ | Documentati | [facility] | Evelyne Pacheco | | | 2019 | on | MED CTR RADIATION | MD [facility] [address] | | | | | [facility] [address] | [place], [place] | | | | | [address] | [address] | | | | | [place] [address] | | | | | | [phone] | | | +--------+ + + + [...] encounter Progress Notes Evelyne Pacheco MD - 11/17/2018 2:26 PM PDT Radiation Treatment Summary Diagnosis: ICD-10-CM ICD-9-CM 1. Radiculopathy, cervical M54.12 723.4 2. 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 Intent: Curative Treatment Technique: Tangents Treatment Site: Breast, Right Prescription and Treatment Summary: Course: THORAX Plan ID Energy Fractions Dose per Fraction (cGy) Dose Correction (cGy) Total Dose Delivered (cGy) Elapsed Days R Breast_FiF 6X 266 0 4,256 21 Pain: Location: general body aches starting yesterday Pain Level: PAIN PROG PAIN LEVEL: 4 Pain Quality: Aching Current pain regimen: none Chemotherapy: No systemic therapy Assessment: Azalia Marks completed the planned course of course of external beam radiation thera py without any unexpected complications or breaks. Treatment tolerance: Good, mild fatigue and expected grade 1-2 radiation dermatitis. Disease response to treatment: No evidence of disease. Disposition: 1. Follow-up in our clinic: 3 months a. Labs: none b. Imaging: none 2. Follow-up with Dr. Lazo in [place]. [facility]. Azalia Marks was encouraged to call our clinic with any further questions or concer ns. Thank you for allowing me to participate in her care. If you should have any questions regarding this treatment summary, please do not hesitate to contact me. Evelyne Pacheco MD Radiation Oncologist Department of Radiation Oncology [facility] documented in this encounter Plan of Treatment [...] | | | | | | [place] [address] | | | | | | [phone] | | | | | | | | +--------+ + + + + documented as of this encounter Visit Diagnoses + + | Diagnosis | + + | Radiculopathy, cervical - Primary Brachial neuritis or radiculitis nos | + + | Infiltrating ductal carcinoma of upper-outer quadrant of right breast in female (HCC) | + + documented in this encounter"
--- OUTSIDE RECORDS SUMMARY | ~2019-11-25 | XMS | Encounter Summary ---
Demographics + + + | Address | [address] | | | [place] [address] | + + + | Home Phone | | + + + | Preferred Language | Unknown | + + + | Marital Status | | + + + | Confucianist Affiliation | Unknown | + + + | Race | Unknown | + + + | Ethnic Group | Unknown | + + + Author + + + | Author | [facility] | | | and [place] | + + + | Organization | [facility] | | | [...] Team Providers + +------+ + | Care Concierge Receptionist Name | Role | Phone | + +------+ + | Gopal Hill DO | PCP | | + +------+ + Reason for Referral Diagnostic/Screening (Routine) +--------+--------+ + + + + | Status | Reason | Specialty | Diagnoses / | Referred By | Referred To | | | | | Procedures | Contact | Contact | +--------+--------+ + + + + | Closed | | Radiology | Diagnoses | [place], | [address] | | | | | Cancer of | Evelyne M, | [place] | | | | | right | MD [address] | [place], | | | | | breast, | [address] | [place] [address] | | | | | stage 1, | [place], | Phone: | | | | | estrogen | [place] [address] | [phone] | | | | | receptor | Phone: | Fax: | | | | | positive | [phone] | [phone] | | | | | (HCC) | Fax: | | | | | | Procedures | [phone] | | | | | | CT Treatment | | | | | | | Plan | | | | | | | Complex | | | +--------+--------+ + + + + Reason for Visit +---------+ + | Reason | Comments | +---------+ + | Consult | | +---------+ + Evaluate & Treat (Routine) +--------+ + + + + + | Status | Reason | Specialty | Diagnoses / | Referred By | Referred To | | | | | Procedures | Contact | Contact | +--------+ + + + + + | Closed | Specialty | Radiation | Diagnoses | Patricia, | Tara, | | | Services | Oncology | Breast CA | Raji Etienne | Evelyne Bellamy MD | | | Required | | Procedures | [address] | [address] | | | | | [place] OFFICE | Jessica Lind | [address] | | | | | OUTPATIENT | [place], | [place], | | | | | [address] | [place] | [place] [address] | | | | | MINUTES | [address] | Phone: | | | | | | Phone: | [phone] | | | | | | [phone] | Fax: | | | | | | Fax: | [phone] | | | | | | [phone] | | +--------+ + + + + + Encounter Details +--------+ + + + + | Date | Type | Department | Care Team | Description | +--------+ + + + + | 10/12/ | Hospital | [facility] | Evelyne Pacheco | Cancer of right | | 2019 | Encounter | [facility] RAD[facility] | MD Josesito [address] | breast, stage 1, | | | | [facility] [address] | [place], [place] | estrogen receptor | | | | [place] [facility] | [phone] | positive (HCC) | | | | [place] [address] | | (Primary Dx); | | | | [phone] | | Infiltrating ductal | | | | | | carcinoma of | | | | | | upper-outer quadrant | | | | | | of right breast in | | | | | | female (HCC) | +--------+ + + + + Social [...] + + + | Blood Pressure | 121/61 | 10/12/2018 1:30 PM | | | | | PDT | | + + + + + | Pulse | 86 | 10/12/2018 1:30 PM | | | | | PDT | | + + + + + | Temperature | 36.5 C (97.7 F) | 10/12/2018 1:30 PM | | | | | PDT | | + + + + + | Respiratory Rate | 16 | 10/12/2018 1:30 PM | | | | | PDT | | + + + + + | Oxygen Saturation | 96% | 10/12/2018 1:30 PM | | | | | PDT | | + + + + + | Inhaled Oxygen | - | - | | | Concentration | | | | + + + + + | Weight | 69.4 kg (153 lb) | 10/12/2018 1:30 PM | | | | | PDT | | + + + + + | Height | 169 cm (5' 6.54") | 10/12/2018 1:30 PM | | | | | PDT | | + + + + + | Body Mass Index | 24.3 | 10/12/2018 1:30 PM | | | [...] + + + +---------+--------+ + | Biotin 78029 MCG | Take 1 tablet by | [...] encounter Progress Notes Evelyne Pacheco MD - 10/12/2018 5:04 PM PDT Radiation Oncology Consultation Chief Complaint: Azalia Marks is a 78 y.o. female seen today as a new patient at the request of Dr. Raji Gomez for evaluation and consideration of radiotherapeutic treatment. 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 History of Present Illness: Self-palpated multiple breast lumps bilaterally. History of multiple prior symptomatic sid ast cysts, including surgical excision in the 1989 s. Notably she has been on hormone rep lacement with estrogen, progesterone and DHEA since she underwent hysterectomy in 1981. The medications have now been discontinued, she is experiencing hot flashes and night sweats bu t managing this well. Diagnostic bilateral mammogram and US on 07/26/18 at [facility] identified a right breast UIQ nodul e at 4:00 measuring up to 9mm. Left breast US only identified a 0.5 cm was simple cyst at 12:000. 08/24/18 Right breast US guided biopsy. Pathology: Invasive ductal carcinoma, Grade 2, ER 10 0%, VA 97%, Ki-67 15%, Her2 non-amplified. She proceeded to undergo needle localized lumpectomy and sentinel lymph node biopsy by Dr. Gomez on 09/07/18. Pathology: Invasive ductal carcinoma, 1.5 cm, Grade 1, associated DICS, no LVI, negative margins, 0/1 sentinel lymph nodes involved. Consultation with Dr. Lazo in [place] with recommendation for adjuvant endocrine t herapy. History of breast reduction in 2008. Review of systems: Constitutional: Reports low energy, may be due to problems with CPAP. Reports chills since surgery a few times a week. Report chronic issues with nausea. Denies high fevers, anore kevin, vomiting, weight loss, or night sweats. Appetite without changes. Ear, Nose, Mouth, Throat: Denies odynophagia, dysphagia, or tinnitus. Cardiovascular: Reports occasional chest pain on right side. Denies shortness of breath, d yspnea on exertion, chest pain, palpitations or orthopnea. Respiratory: Reports cough over last three months due to URI. Denies cough, hemoptysis, or sputum production. Gastrointestinal: Reports chronic diarrhea with abdominal pain and cramping. Denies const ipation, melena, or bright red blood per rectum. Genitourinary: Denies hematuria or dysuria. Musculoskeletal: Reports general joint pain. Neurologic: Reports headaches since fall on July 29. Reports numbness in hands and feet. Endocrine: Denies peripheral edema or heat/cold intolerance. Hematologic: Denies spontaneous bruising or bleeding. Integumentary: Denies rash, wounds or other skin concerns. . Note: Patient is here for consult for for breast cancer with her daughter Casandra. My chart: Pending Pregnancies: 1 Births: 1 Age of first : 23 Age of menarche: 12 Post menapausal: hysterectomy at age 42 Hormone use: Estrogen/progesterone since age 42 Pain assessment: Location: back pain Pain Level: PAIN PROG PAIN LEVEL: 4 Pain Quality: Aching Current pain regimen: flector patch Questionnaires: Have you ever had radiation treatment: no Comments: Do you have a pacemaker or ICD: no Type: Indication for pacemaker: Implant date: Alarm Technician: MR Compatible: Are you claustrophobic? yes Comments: Do you have a connective tissue disorder such as Lupus, Scleroderma, or other: no Do you have the ability to become : no If yes, is there potential that you are currently ? What type of contraceptive do you use? Current Outpatient Medications Medication Sig Dispense Refill Ascorbic Acid (VITAMIN C) 1000 MG tablet Take 1,000 mg by mouth Daily. aspirin 81 mg EC tablet Take 81 mg by mouth Daily. Biotin 54466 MCG TABS Take 1 tablet by mouth 2 times daily. Ecniyjvrtnj-Uydndstz-Wpwkzkvs (REFRESH OPTIVE CARINA-3 OP) Apply to eye. [...] by mouth Daily. No current facility-administered medications for this encounter. 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 Sleep apnea Vitamin D deficiency Past Surgical History: Procedure Laterality Date ABDOMINAL EXPLORATION SURGERY 01/09/2011 EXPLORATION OF DUODENAL DIVERTICULUM AND DUODENAL PEXY, ANTECTOMY AND GASTROJEJUNOSTOMY BREAST BIOPSY Right 08/24/2018 Procedure: US GUIDED BREAST BIOPSY RIGHT - Location: [facility] BREAST REDUCTION SURGERY 2008 CARDIAC ABLATION 1989 CHOLECYSTECTOMY 1970 LIPOSUCTION 1980 IRINA AND BSO TOTAL KNEE ARTHROPLASTY Family History Problem Relation Age of Onset Stroke Mother Stroke Maternal Grandmother Heart disease Maternal Grandfather Social History Socioeconomic History Marital status: Unknown Spouse name: Not on file Number of children: Not on file Years of education: Not on file Highest education level: Not on file Social Needs Financial resource strain: Not on file Food insecurity - worry: Not on file Food insecurity - inability: Not on file Transportation needs - medical: Not on file Transportation needs - non-medical: Not on file Occupational History Not on file Tobacco Use Smoking status: Not on file Substance and Sexual Activity Alcohol use: Not on file Drug use: Not on file Sexual activity: Not on file Other Topics Concern Not on file Social History Narrative Not on file Physical Exam: Vitals: 10/12/18 1330 BP: 121/61 Pulse: 86 Resp: 16 Temp: 36.5 C (97.7 F) 10/12/18 69.4 kg (153 lb) General: Healthy appearing woman in no acute medical distress. KPS: 80 HEENT: Pupils equal, round and reactive to [...] Exam performed in the presence of a agriculture worker. On upright exam breasts appear symm etric bilaterally with no contour abnormalities or malignant appearing skin changes. The ri ght breast demonstrates a well-healed surgical incision. On supine exam palpation of the ri ght breast demonstrates minimal fibrosis or seroma at the site of prior lumpectomy. No disc rete mass lesions are identified in either breast. There is no pain with palpation. No nip ple changes. Labs: No recent results. Imaging: The imaging studies outlined above in HPI were reviewed with the radiologist. at breast [facility] tidisciplinary conference. Pathology: See HPI. Assessment: Infiltrating ductal carcinoma of upper-outer quadrant of right breast in female (HCC) 08/24/2018 Initial Diagnosis Presented with clinical symptom of breast cysts bilaterally. Invasive ductal carcinoma, grade 2, ER 100%, VA 97%, Ki-67 15%, HER-2/olivia nonamplified. Clinical stage IA, T1b N0 09/07/2018 Surgery Surgeon: Patricia Surgery indicated: lumpectomy and sentinel LN biopsy. Final pathology details: Invasive ductal carcinoma, 1.5 cm, Grade 1, associated DICS, no LVI, negative margins, 0/1 sentinel lymph nodes involved. Pathologic Stage IA: T1c N0 Today we reviewed the available diagnostic information and pathology as outlined above. . She was discussed at Multidisciplinary Breast Conference. She is also seeing Dr. Moreland [facility] medical oncology. Surgical consultation with Dr. Gomez and upfront surgical manageme nt with breast conserving surgery has already been completed. Radiation therapy has an important role in breast conserving therapy, and is standardly rec ommended following lumpectomy. In a subset of women over the age of 65-70, specifically wit h ER positive tumors, omission of radiation can be considered. We reviewed this literature a nd estimated recurrence rates of 2% at 9 years with radiation and 10% without. She favored i ncluding radiation in her treatment. We discussed hypofractionated external beam whole breast radiation (42.56 - 50.05 Gy in 16- 20 fractions given once a day, Thursday through Thursday over 3 4 weeks). Accelerated partia l breast irradiation may also be an acceptable radiation treatment option ( catheter implant ed into lumpectomy cavity and 34 Gy delivered in 10 fractions given twice a day, Thursday thro thursday over 1 week). However her surgery was 5 weeks ago and there is limited ability t o coordinate this technique within the recommended six-week postoperative window. We focuse d on the procedures involved in external beam radiation. We also discussed potential short a nd long-term side effects of each technique. Potential acute side effects include but are no t limited to fatigue and a spectrum of skin toxicity including erythema to desquamation. O ther acute complications include breast/chest wall edema and tenderness. Potential late com plications include but are not limited to impaired cosmesis with hyperpigmentation, telangie ctasia, fibrosis. Other potential late less common complications include lymphedema, rib fr acture, pneumonitis and cardiovascular disease. 60 minutes spent in bfku-ja-sikf counseling discussing the above. Azalia verbalized understanding of the treatment recommendation and wishes to proceed to [facility]. Plan: - Hypo-fractionated whole breast radiation with 42.56 Gy in 16 fractions. Patient return f or CT simulation in the coming 1 2 weeks. - Follow-up with Dr. Lazo after radiation for adjuvant endocrine therapy. - Reiterated the importance of avoiding exogenous estrogen therapy. The information found at www.rtanswers.org was advised for further information specific to radiation therapy. Azalia was encouraged to call our clinic with any further questions or con cerns. Thank you for allowing me to participate in the care of Azalia. If you should have any questi ons regarding this evaluation, please do not hesitate to contact me. Evelyne Pacheco M.D. Radiation Oncologist Department of Radiation Oncology [facility] Office: [phone] signed by Evelyne Pacheco MD at 11/07/2018 5:32 PM P DTdocumented in this encounter Plan of Treatment +--------+ + + + + | Date | Type | Specialty | Care Team | Description | +--------+ + + + + | 01/10/ | Appointment | Radiation Oncology | Yarely Joans | | | 2019 | | | DIPAK Ewing [address] | | | | | | [address] [facility] | | | | | | [place] [address] | | | | | | [phone] | | | | | | | | +--------+ + + + + documented as of this encounter Results CT Treatment Plan Complex (10/20/2018 10:55 AM PDT) + + | Specimen | + + | | + + + + + | Narrative | Performed At | + + + | This exam has been auto-finalized and the interpretation may exist | [facility] | | elsewhere in the chart. 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
--- OUTSIDE RECORDS SUMMARY | ~2019-11-25 | XMS | Encounter Summary ---
Demographics + + + | Address | [address] | | | [place] [address] | + + + | Home Phone | | + + + | Preferred Language | Unknown | + + + | Marital Status | | + + + | Worship Affiliation | Unknown | + + + | Race | Unknown | + + + | Ethnic Group | Unknown | + + + Author + + + | Author | [facility] | | | and [place] | + + + | Organization | [facility] | | | [...] Team Providers + +------+ + | Care Solar Project Engineer Name | Role | Phone | + +------+ + | Gopal Hill DO | PCP | | + +------+ + Encounter Details +--------+ + + + + | Date | Type | Department | Care Team | Description | +--------+ + + + + | 11/17/ | Documentati | [facility] | Krystina Miller RN | | | 2019 | on | [facility] | | | | | | [facility] [address] | | | | | | [address] | | | | | | [place] [address] | | | | | | [phone] | | | +--------+ + + + [...] documented as of this encounter Progress Notes Krystina Miller RN - 11/17/2018 2:51 PM [place] Completed treatment for breast cancer today and is eligible for a survivorship care plan per the commission on cancer guidelines. Surv ivorship care plan given and discussed with Azalia and her daughter in person today. No furth er questions at this time per patient. Azalia understands to call at anytime if she has any fu rther questions or concerns, contact information given. Azalia filled out the NCCN distress t hermometer and the results of overall distress was 2. The only concern she has is a lucero ge in non-cancer medication made by her PCP, we discussed a follow up with her physician to take care of this. Based on Azalia's response to the stress tool I have no further referrals to make at this time. Azalia has a follow up with Dr. Lazo in [place] in the next we ek and a follow up with Dr. Pacheco at the cancer center on 02/28/19. Azalia was given a surv ivorship packet today including a care plan, energy conservation techniques, diet/nutrition/ exercise, fear of recurrence, emotional concerns, local and national support group informati on and a survivorship booklet. Azalia is signed up to use the [facility] through [facility] in [place]. P DTdocumented in this encounter Plan of [...] | | | | | [place] [address] | | | | | | [phone] | | | | | | | | +--------+ + + + + documented as of this encounter Visit Diagnoses Not on filedocumented in this encounter"
--- OUTSIDE RECORDS SUMMARY | ~2019-11-25 | XMS | Encounter Summary ---
Demographics + + + | Address | [address] | | | [place] [address] | + + + | Home Phone | | + + + | Preferred Language | Unknown | + + + | Marital Status | | + + + | Muslim Affiliation | Unknown | + + + | Race | Unknown | + + + | Ethnic Group | Unknown | + + + Author + + + | Author | [facility] | | | and [place] | + + + | Organization | [facility] | | | and [...] Team Providers + +------+ + | Care Factory Clerk Name | Role | Phone | [...] | | | [address] [place] | [place] [address] | | | | | [place] [address] | | | | | | [phone] | | | +--------+ + + + [...] | | | | | | [place] [address] | | | | | | [phone] | | | | | | | | +--------+ + + + + documented as of this encounter Procedures + +--------+ + + + | Procedure Name | Priori | Date/Time | Associated Diagnosis | Comments | | | ty | | | | + +--------+ + + + | US EXAM FOLLOW UP | Routin | 09/07/2018 | | | | | e | 12:15 AM | | | | | | PDT | | | + +--------+ + + + documented in this encounter Results US Exam Follow Up (09/07/2018 12:15 AM PDT) + + | Specimen | [...]
--- OUTSIDE RECORDS SUMMARY | ~2019-11-25 | XMS | Encounter Summary ---
Demographics + + + | Address | [address] | | | [place] [address] | + + + | Home Phone | | + + + | Preferred Language | Unknown | + + + | Marital Status | | + + + | Jew Affiliation | Unknown | + + + | Race | Unknown | + + + | Ethnic Group | Unknown | + + + Author + + + | Author | [facility] | | | and [place] | + + + | Organization | [facility] | | | and [...] Team Providers + +------+ + | Care Urban Planner Name | Role | Phone | + +------+ + | Gopal Hill DO | PCP | | + +------+ + Reason for Visit + + + | Reason | Comments | + + + | Under Treatment | | + + + Encounter Details +--------+ + + + + | Date | Type | Department | Care Team | Description | +--------+ + + + + | 11/04/ | Hospital | [facility] | Evelyne Pacheco | Cancer of right | | 2019 | Encounter | MED CTR RADIATION | MD [address] | breast, stage 1, | | | | [facility]OGY CLIN[facility] [address] | [place], [place] | estrogen receptor | | | | [address] [facility] | [address] | positive (HCC) | | | | [place] [address] | | (Primary Dx); | | | | [phone] | | Infiltrating ductal | | | [...] + + + | Blood Pressure | 145/69 | 11/04/2018 2:15 PM | | | | | PDT | | + + + + + | Pulse | 82 | 11/04/2018 2:15 PM | | | | | PDT | | + + + + + | Temperature | 36.7 C (98.1 F) | 11/04/2018 2:15 PM | | | | | PDT | | + + + + + | Respiratory Rate | 18 | 11/04/2018 2:15 PM | | | | | PDT | | + + + + + | Oxygen Saturation | 95% | 11/04/2018 2:15 PM | | | | | PDT | | + + + + + | Inhaled Oxygen | - | - | | | Concentration | | | | + + + + + | Weight | 69.5 kg (153 lb 3.5 | 11/04/2018 2:15 PM | | | | oz) | PDT | | + + + + + | Height | - | - | | + + + + + | Body Mass Index | 24.33 | 10/12/2018 1:30 PM | | | [...] + + + +---------+--------+ + | Biotin 72129 MCG | Take 1 tablet by | [...] encounter Progress Notes Evelyne Pacheco MD - 11/04/2018 12:00 PM PDT Radiation Oncology Weekly On Treatment Note Diagnosis: ICD-10-CM ICD-9-CM 1. Cancer of right breast, stage 1, estrogen receptor positive (HCC) C50.911 174.9 Z17.0 V86.0 2. 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 Corre ctions were applied as necessary. Allergies Allergen Reactions Cephalexin Other (See Comments) PASS OUT Codeine Other (See Comments) "CRAZY" Propoxyphene Other (See Comments) HYPER Sulfa Antibiotics Rash Adhesive & Tape Itching Current Outpatient Medications on File Prior to Encounter Medication Sig Dispense Refill Ascorbic Acid (VITAMIN C) 1000 MG tablet Take 1,000 mg by mouth Daily. aspirin 81 mg EC tablet Take 81 mg by mouth Daily. Biotin 34276 MCG TABS Take 1 tablet by mouth 2 times daily. Hphvprtxini-Hurwgtyp-Bvfuvrao (REFRESH OPTIVE CARINA-3 OP) Apply to eye. [...] facility-administered medications on file prior to encounter. Wt Readings: 11/04/18 69.5 kg (153 lb 3.5 oz) 10/28/18 72.4 kg (159 lb 9.8 oz) Vitals: 11/04/18 1415 BP: 145/69 Pulse: 82 Resp: 18 Temp: 36.7 C (98.1 F) TempSrc: Temporal SpO2: 95% Weight: 69.5 kg (153 lb 3.5 oz) Physical Exam Constitutional: She appears well-developed and well-nourished. Neurological: She is alert. Skin: No rash noted. There is erythema (faint). Psychiatric: She has a normal mood and affect. Physician Assessment: Azalia reports fatigue and mild breast redness. No pain or swelling. Continues to have diffic ulty swallowing (preceeded treatment). Pending swallow study tomorrow. Disposition: Continue radiation treatment as planned. Skin care with emollient lotion. Evelyne Pacheco MD Radiation Oncologist documented in this encounter Plan of Treatment [...] | | | | | [place] [address] | | | | | | [phone] | | | | | | | | +--------+ + + + + documented as of this encounter Procedures + +--------+ + + + | Procedure Name | Priori | Date/Time | Associated Diagnosis | Comments | | | ty | | | | + +--------+ + + + | IMAGING REPORT - | | 09/07/2018 | | Results for this | | EXTERNAL SCAN | | 12:00 AM | | procedure are in the | | | | PDT | | results section. | + +--------+ + + + | PATHOLOGY - EXTERNAL | | 09/07/2018 | | Results for this | | SCAN | | 12:00 AM | | procedure are in the | | | | PDT | | results section. | + +--------+ + + + | LABS - EXTERNAL SCAN | | 09/02/2018 | | Results for this | | | | 12:00 AM | | procedure are in the | | | | PDT | | results section. | + +--------+ + + + | IMAGING REPORT - | | 08/24/2018 | | Results for this | | EXTERNAL SCAN | | 12:00 AM | | procedure are in the | | | | PDT | | results section. | + +--------+ + + + | PATHOLOGY - EXTERNAL | | 08/24/2018 | | Results for this | | SCAN | | 12:00 AM | | procedure are in the | | | | PDT | | results section. | + +--------+ + + + | IMAGING REPORT - | | 07/26/2018 | | Results for this | | EXTERNAL SCAN | | 12:00 AM | | procedure are in the | | | | PDT | | results section. | + +--------+ + + + documented in this encounter Results PATHOLOGY - EXTERNAL SCAN (09/07/2018 12:00 AM PDT) + + + | Narrative | Performed At | + + + | Ordered by an | | | unspecified provider. | | + + + IMAGING REPORT - EXTERNAL SCAN (09/07/2018 12:00 AM PDT) + + + | Narrative | Performed At | + + + | Ordered by an | | | unspecified provider. | | + + + LABS - EXTERNAL SCAN (09/02/2018 12:00 AM PDT) + + + | Narrative | Performed At | + + + | Ordered by an | | | unspecified provider. | | + + + PATHOLOGY - EXTERNAL SCAN (08/24/2018 12:00 AM PDT) + + + | Narrative | Performed At | + + + | Ordered by an | | | unspecified provider. | | + + + IMAGING REPORT - EXTERNAL SCAN (08/24/2018 12:00 AM PDT) + + + | Narrative | Performed At | + + + | Ordered by an | | | unspecified provider. | | + + + IMAGING REPORT - EXTERNAL SCAN (07/26/2018 12:00 AM PDT) + + + | [...]
--- OUTSIDE RECORDS SUMMARY | ~2019-11-25 | XMS | Encounter Summary ---
Demographics + + + | Address | [address] | | | [place] [address] | + + + | Home Phone | | + + + | Preferred Language | Unknown | + + + | Marital Status | | + + + | Orthodoxy Affiliation | Unknown | + + + | Race | Unknown | + + + | Ethnic Group | Unknown | + + + Author + + + | Author | [facility] | | | and [place] | + + + | Organization | [facility] | | | [...] Team Providers + +------+ + | Care Staining Machine Operator Name | Role | Phone | [...] Cancer of | Evelyne M, | [address] | | | | | right | MD [address] | [place], | | | | | breast, | [address] | [place] [address] | | | | | stage 1, | [place], | Phone: | | | | | estrogen | [place] [address] | [phone] | | | | | receptor | Phone: | Fax: | | | | | positive | [phone] | [phone] | | | | | (HCC) | Fax: | | | | | | Procedures | [phone] | | | | | | CT Treatment | | | | | | | Plan | | | | | | | Complex | | | +--------+--------+ + + + + Reason for Visit Diagnostic/Screening (Routine) +--------+--------+ + + + + | Status | Reason | Specialty | Diagnoses / | Referred By | Referred To | | | | | Procedures | Contact | Contact | +--------+--------+ + + + + | Closed | | Radiology | Diagnoses | [place], | [address] | | | | | Cancer of | Evelyne M, | [address] | | | | | right | MD [address] | [place], | | | | | breast, | [address] | [place] [address] | | | | | stage 1, | [place], | Phone: | | | | | estrogen | [place] [address] | [phone] | | | | | receptor | Phone: | Fax: | | | | | positive | [phone] | [phone] | | | | | (HCC) | Fax: | | | | | | Procedures | [phone] | | | | | | CT Treatment | | | | | | | Plan | | | | | | | Complex | | | +--------+--------+ + + + + Encounter Details +--------+ + + + + | Date | Type | Department | Care Team | Description | +--------+ + + + + | 10/20/ | Hospital | [facility] | Willmilli Evelyne | Cancer of right | | 2019 | Encounter | MED CTR [address] | M, MD [address] | breast, stage 1, | | | | [place], | [place], [place] | estrogen receptor | | | | [place] [address] | [address] | positive (HCC) | | | | [phone] | | | +--------+ + + + [...] + + + +---------+--------+ + | Biotin 31858 MCG | Take 1 tablet by | [...] W | | | | | | [address] [place] | | | | | | [place] [address] | | | | | | [phone] | | | | | | | | +--------+ + + + + documented as of this encounter Procedures + +--------+ + + + | Procedure Name | Priori | Date/Time | Associated Diagnosis | Comments | | | ty | | | | + +--------+ + + + | CT TREATMENT PLAN | Routin | 10/20/2018 | Cancer of right | Results for this | | COMPLEX | e | 10:55 AM | breast, stage 1, | procedure are in the | | | | PDT | estrogen receptor | results section. | | | | | positive (HCC) | | + +--------+ + + + documented in this encounter Results CT Treatment Plan Complex [...] breast, stage 1, estrogen receptor positive (HCC) | + + documented in this encounter"
--- OUTSIDE RECORDS SUMMARY | ~2019-11-25 | XMS | Encounter Summary ---
Demographics + + + | Address | [address] | | | [place] [address] | + + + | Home Phone | | + + + | Preferred Language | Unknown | + + + | Marital Status | | + + + | Evangelical Affiliation | Unknown | + + + [...] Team Providers + +------+ + | Care Mice Raiser Name | Role | Phone | + [...] | | | [address] | [place] [address] | | | | | [place] [address] | | | | | | [phone] | | | +--------+ + + + [...] | | | | | | [place] [address] | | | | | | [phone] | | | | | | | | +--------+ + + + + documented as of this encounter Procedures + +--------+ + + + | Procedure Name | Priori | Date/Time | Associated Diagnosis | Comments | | | ty | | | | + +--------+ + + + | US BREAST LIMITED | Routin | 07/26/2018 | | | | RIGHT | e | 12:10 AM | | | | | | PDT | | | + +--------+ + + + documented in this encounter Results US Breast Limited Right (07/26/2018 12:10 AM PDT) + + | Specimen [...]
--- OUTSIDE RECORDS SUMMARY | ~2019-11-25 | XMS | Encounter Summary ---
Demographics + + + | Address | [address] | | | [place] [address] | + + + | Home Phone | | + + + | Preferred Language | Unknown | + + + | Marital Status | | + + + | Jew Affiliation | Unknown | + + + | Race | Unknown | + + + | Ethnic Group | Unknown | + + + Author + + + | Author | [facility] | | | and [place] | + + + | Organization | [facility] | | | [...] Team Providers + +------+ + | Care Account Information Clerk Name | Role | Phone | + +------+ + | Gopal Hill DO | PCP | | + +------+ + Encounter Details +--------+ + + + + | Date | Type | Department | Care Team | Description | +--------+ + + + + | 10/12/ | Hospital | [facility] | Evelyne Pacheco | | | 2019 | Encounter | MED CTR RADIATION | MD [address] | | | | | ONCOLOGY [address] | [place], [place] | | | | | [place], | [address] | | | | | [place] [address] | | | | | | [phone] | | | +--------+ + + + [...] + + + +---------+--------+ + | Biotin 18410 MCG | Take 1 tablet by | [...] | | 2019 | | | [facility] | | | | | | [place] | | | | | | [place] [address] | | | | | | [phone] | | | | | | | | +--------+ + + + + documented as of this encounter Visit Diagnoses Not on filedocumented in this encounter"
--- OUTSIDE RECORDS SUMMARY | ~2019-11-25 | XMS | Encounter Summary ---
Demographics + + + | Address | [address] | | | [place] [address] | + + + | Home Phone | | + + + | Preferred Language | Unknown | + + + | Marital Status | | + + + | Synagogue Affiliation | Unknown | + + + | Race | Unknown | + + + | Ethnic Group | Unknown | + + + Author + + + | Author | [facility] | | | and [place] | + + + | Organization | [facility] | | | and [...] Team Providers + +------+ + | Care Trimmer Hand Name | Role | Phone | [...] | | | [address] | [place] [address] | | | | | [place] [address] | | | | | | [phone] | | | +--------+ + + + [...] | | | | | | [place] [address] | | | | | | [phone] | | | | | | | | +--------+ + + + + documented as of this encounter Procedures + +--------+ + + + | Procedure Name | Priori | Date/Time | Associated Diagnosis | Comments | | | ty | | | | + +--------+ + + + | US BREAST LIMITED | Routin | 07/26/2018 | | | | LEFT | e | 12:05 AM | | | | | | PDT | | | + +--------+ + + + documented in this encounter Results US Breast Limited Left (07/26/2018 12:05 AM PDT) + + | Specimen [...]
--- OUTSIDE RECORDS SUMMARY | ~2019-11-25 | XMS | Encounter Summary ---
Demographics + + + | Address | [address] | | | [place] [address] | + + + | Home Phone | | + + + | Preferred Language | Unknown | + + + | Marital Status | | + + + | Gnosticism Affiliation | Unknown | + + + | Race | Unknown | + + + | Ethnic Group | Unknown | + + + Author + + + | Author | [facility] | | | and [place] | + + + | Organization | [facility] | | [...] Team Providers + +------+ + | Care Reception Clerk Name | Role | Phone | [...] | +--------+ + + + + | 10/28/ | Hospital | [facility] | Evelyne Pacheco | Dysphagia, | | 2019 | Encounter | MED CTR RADIATION | MD [address] [facility] | unspecified type | | | | ONCOLOGY CL[facility] [address] | [place], [place] | (Primary Dx); Cancer | | | | [address] | [address] | of right breast, | | | | [place] [address] | | stage 1, estrogen | | | | [phone] | | receptor positive | | | | | | (HCC); Infiltrating | | | | | | ductal carcinoma of | | | | | [...] + + + | Blood Pressure | 105/65 | 10/28/2018 2:58 PM | | | | | PDT | | + + + + + | Pulse | 76 | 10/28/2018 2:58 PM | | | | | PDT | | + + + + + | Temperature | 36.6 C (97.9 F) | 10/28/2018 2:58 PM | | | | | PDT | | + + + + + | Respiratory Rate | 16 | 10/28/2018 2:58 PM | | | | | PDT | | + + + + + | Oxygen Saturation | 96% | 10/28/2018 2:58 PM | | | | | PDT | | + + + + + | Inhaled Oxygen | - | - | | | Concentration | | | | + + + + + | Weight | 72.4 kg (159 lb 9.8 | 10/28/2018 2:58 PM | | | | oz) | PDT | | + + + + + | Height | - | - | | + + + + + | Body Mass Index | 25.35 | 10/12/2018 1:30 PM | | | [...] + + + +---------+--------+ + | Biotin 22411 MCG | Take 1 tablet by | [...] documented as of this encounter Progress Notes Belkis Vigil RN - 10/28/2018 2:55 PM PDTMet with patient today for nurse education. Verbal and written education given to patient regarding general radiation therapy side effe cts as well as site specific side effects. Reviewed process of OTV day for their doctormahogany questions at this time were answered. Evelyne Patel MD - 10/28/2018 9:20 AM PDT Radiation Oncology Weekly On Treatment Note Diagnosis: ICD-10-CM ICD-9-CM 1. Dysphagia, unspecified type R13.10 787.20 2. Cancer of right breast, stage 1, estrogen receptor positive (HCC) C50.911 174.9 Z17.0 V86.0 3. 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 Biotin 83340 MCG TABS Take 1 tablet by mouth 2 times daily. Tfioyjiagcp-Cefraygc-Lzyubvxj (REFRESH OPTIVE CARINA-3 OP) Apply to eye. [...] Take 1 tablet by mouth [place]. No current facility-administered medications on file prior to encounter. Vitals: 10/28/18 1458 BP: 105/65 Pulse: 76 Resp: 16 Temp: 36.6 C (97.9 F) TempSrc: Temporal SpO2: 96% Weight: 72.4 kg (159 lb 9.8 oz) Physical Exam Constitutional: She appears well-developed and well-nourished. Neurological: She is alert. Skin: No rash noted. No erythema. Psychiatric: She has a normal mood and affect. Physician Assessment: Azalia started radiation this week. No radiation related side-effects, we reviewed potential side-effects and skin care recommendations. She reports dysphagia that has been progressivel y worsening. Work-up with swallow study ordered. Disposition: Continue radiation treatment as planned. 

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
--- OUTSIDE RECORDS SUMMARY | ~2019-11-25 | XMS | Encounter Summary ---
Demographics + + + | Address | [address] | | | [place] [address] | + + + | Home Phone | | + + + | Preferred Language | Unknown | + + + | Marital Status | | + + + | Adventism Affiliation | Unknown | + + + [...] Team Providers + +------+ + | Care Enterprise Resource Planner Name | Role | Phone | + +------+ + | Gopal Hill DO | PCP | | + +------+ + Reason for Visit + +--------+ + | Reason | Onset | Comments | | | Date | | + +--------+ + | IDT Note | 10/19/ | | | | 2019 | | + +--------+ + Encounter Details +--------+ + + + + | Date | Type | Department | Care Team | Description | +--------+ + + + + | 10/19/ | Telephone | [facility] | Evelyne Pacheco | IDT Note | | 2019 | | [facility] | MD [facility] [address] | | | | | [facility]Y CL[facility] [address] | [place], [place] | | | | | [facility] | [address] | | | | | [place] [address] | | | | | | [phone] | | | +--------+ + + + [...] this encounter Miscellaneous Notes Telephone Encounter - Belkis Vigil RN - 10/19/2018 3:53 PM PDTFormatting of this no te might be different from the original. [facility] Interdisciplinary Team Navigational Checklist ? Top Priority Discipline EPIC Order Entered Consult Scheduled Consult Complete Comments: x *Medical Oncology Dr. Violet [place] x *Radiation Oncology Dr. Tara VEGA 10/20/18 x *Patient Navigation *Nurse Navigator x *Social Service Survivorship Nurse Breast Health Genetics Surgical Input *Nursing assessment *Pharmacy assessment Nutrition Rehab: PT x OT Speech & Language Palliative Care Clinical Trials Involvement Roll Cutting Operator Visit Financial Assistance Interdisciplinary Consults Completed Date: documented in this encounter Plan of Treatment +--------+ + + + + | Date | Type | Specialty | Care Team | Description | +--------+ + + + + | 01/10/ | Appointment | Radiation Oncology | Yarely Jonas | | | 2019 | | | DIPAK Ewing [address] | | | | | | [address] | | | | | | [place] [address] | | | | | | [phone] | | | | | | | | +--------+ + + + + documented as of this encounter Visit Diagnoses Not on filedocumented in this encounter"
--- OUTSIDE RECORDS SUMMARY | ~2019-11-25 | XMS | Encounter Summary ---
Demographics + + + | Address | [address] | | | [place] [address] | + + + | Home Phone | | + + + | Preferred Language | Unknown | + + + | Marital Status | | + + + | Restorationism Affiliation | Unknown | + + + | Race | Unknown | + + + | Ethnic Group | Unknown | + + + Author + + + | Author | [facility] | | | and [place] | + + + | Organization | [facility] | | | [...] Team Providers + +------+ + | Care Barrel Roller Operator Name | Role | Phone | + +------+ + | Gopal Hill DO | PCP | | + +------+ + Reason for Visit +---------+--------+ + | Reason | Onset | Comments | | | Date | | +---------+--------+ + | Results | 11/09/ | | | | 2019 | | +---------+--------+ + Encounter Details +--------+ + + + + | Date | Type | Department | Care Team | Description | +--------+ + + + + | 11/09/ | Telephone | [facility] | Evelyne Pacheco | Results | | 2019 | | [facility] | MD [place] | | | | | ON[facility]OGY CLIN[facility] [address] | [place], [place] | | | | | [address] [facility] | [address] | | | | | [place] [address] | | | | | | [phone] | | | +--------+ + + + [...] Telephone Encounter - Mehnaz Carias RN - 11/09/2018 4:57 PM PDTWhen calling patient reg arding swallowing eval results, she states she does not want referral to neurosurgeon at thi s time. She states the speech therapist was going to make the recommendation for he for be referred for implants and she would like this referral to be placed. documented in this encounter Plan of Treatment [...] | | | | | [place] [address] | | | | | | [phone] | | | | | | | | +--------+ + + + + documented as of this encounter Visit Diagnoses Not on filedocumented in this encounter"
--- OUTSIDE RECORDS SUMMARY | ~2019-11-25 | XMS | Encounter Summary ---
Demographics + + + | Address | [address] | | | [place] [address] | + + + | Home Phone | | + + + | Preferred Language | Unknown | + + + | Marital Status | | + + + | Catholic Affiliation | Unknown | + + + [...] | + + +---------+ + | Casandra Catrachito | ECON | Unknown | | + + +---------+ + | Katherin Galvan | ECON | Unknown | | + + +---------+ + Care Team Providers + +------+ + | Care Measurer Machine Name | Role | Phone | + +------+ + PCP | Unavailable | + +------+ + Encounter Details +--------+ + + + + | Date | Type | Department | Care Team | Description | +--------+ + + + + | 06/20/ | Hospital | [facility] | Conversion | Pain of right hand; | | 2013 | Encounter | [facility] | Transaction, | Swelling of finger | | | | [address] | Provider Unknown | of right hand | | | | [address] [place], [place] | [phone] | | | | | [address] | | | | | | [phone] | | | +--------+ + + + [...] | | | | | | [address] | | | | | | [place] [address] | | | | | | [phone] | | | | | | | | +--------+ + + + + documented as of this encounter Procedures + +--------+ + + + | Procedure Name | Priori | Date/Time | Associated Diagnosis | Comments | | | ty | | | | + +--------+ + + + | XR HAND RIGHT 3 + VW | Routin | 06/20/2013 | | Results for this | | | e | 11:38 AM | | procedure are in the | | | | PDT | | results section. | + +--------+ + + + documented in this encounter Results XR Hand Right 3 + Vw (06/20/2013 11:38 AM PDT) + + | Specimen | + + | | + + + + + | Impressions | Performed At | + + + | 1. Severe arthritic changes involving the first carpometacarpal | | | joint. 2. Mild osteoarthritic changes involving the second and | | | third distal interphalangeal joints. | | + + + + + + | Narrative | Performed At | + + + | [facility] X[facility] HAND RIGHT 06/20/2013 11:38 AM HISTORY: Pain | | | and swelling at the base of the right thumb. TECHNIQUE: Three | | | views of the right hand. COMPARISON: None. FINDINGS: Severe | | | osteoarthritic changes present involving the first carpometacarpal | | | joint, as evidenced by joint space loss, subchondral cyst formation, | | | and osteophyte formation. No fracture or dislocation is found. Mild | | | osteoarthritic changes present involving the second and third distal | | | interphalangeal joints. | | + + + + + | Procedure Note | + + | Mikey Francois Conversion - 11/26/2018 12:23 PM PDT [facility] HAND RIGHT06/20/2013 | | 11:38 AM HISTORY:Pain and swelling at the base of the right thumb. TECHNIQUE:Three views | | of the right hand. COMPARISON:None. FINDINGS:Severe osteoarthritic changes present | | involving the first carpometacarpal joint, as evidenced by joint space loss, subchondral | | cyst formation, and osteophyte formation. No fracture or dislocation is found. Mild | | osteoarthritic changes present involving the second and third distal interphalangeal | | joints. IMPRESSION: 1. Severe arthritic changes involving the first carpometacarpal | | joint. 2. Mild osteoarthritic changes involving the second and third distal | | interphalangeal joints. | | AM | |COMPARISON: | |None. | | | |FINDINGS: | |Severe osteoarthritic changes present involving the first carpometacarpal joint, as evidenc ed by joint space loss, subchondral cyst formation, and osteophyte formation. No fracture or dislocation is found. Mild osteoarthritic changes present involving | |the second and third distal interphalangeal joints. | | | |IMPRESSION: | |1. Severe arthritic changes involving the first carpometacarpal joint. | | | |2. Mild osteoarthritic changes involving the second and third distal interphalangeal joint s. | | | | | + + documented in this encounter Visit Diagnoses + + | Diagnosis | + + | Pain of right hand Pain in limb | + + | Swelling of finger of right hand Swelling of limb | + + documented in this encounter"
--- OUTSIDE RECORDS SUMMARY | ~2019-11-25 | XMS | Encounter Summary ---
Demographics + + + | Address | [address] | | | [place] [address] | + + + | Home Phone | | + + + | Preferred Language | Unknown | + + + | Marital Status | | + + + | Jainism Affiliation | Unknown | + + + | Race | Unknown | + + + | Ethnic Group | Unknown | + + + Author + + + | Author | [facility] | | | and [place] | + + + | Organization | [facility] | | [...] Providers + +------+ + | Care Director Sales And Marketing Name | Role | Phone | + +------+ + PCP | Unavailable | + +------+ + Encounter Details +--------+ + + + + | Date | Type | Department | Care Team | Description | +--------+ + + + + | 08/26/ | Hospital | [facility] | Conversion | Neck pain; | | 2012 | Encounter | [facility] | Transaction, | Numbness | | | | [address] | Provider Unknown | | | | | [place], [place] | | | | | | [address] | (Fax) | | | | | [phone] | | | +--------+ + + + [...] documented as of this encounter Progress Notes Conversion Transaction, Provider Unknown - 12/06/2012 1:09 PM PDTFormatting of this note m ight be different from the original. Progress Notes by Dorita Moctezuma RN at 12/06/12 5460 Author: Dorita Moctezuma RN Service: (none) Author Type: Registered Nurse Filed: 12/06/12 7788 Date of Service: 12/06/12 3734 Status: Signed Video Operator: Dorita Moctezuma RN (Registered Nurse) Pt tolerated MRI very well with conscious sedation. AAO after scan complete. Ambulated to holding area without difficulty. Sat up, eating crackers with juice. Denies pain or any o ther c/o. D/C instructions reviewed with pt and her daughter. Both state that they underst and. PIV D/C'd with tip intact. Pt's VSS. Dressed self and escorted out to hospital exit. D/C'd home with all belongings and with daughter in attendance. Dorita Moctezuma RN docume nted in this encounter Plan of Treatment +--------+ + + + + | Date | Type | Specialty | Care Team | Description | +--------+ + + + + | 01/10/ | Appointment | Radiation Oncology | aYrely Jonas | | | 2019 | | | [facility] [address] | | | | | [address] | | | | | | [place] [address] | | | | | | [phone] | | | | | | | | +--------+ + + + + documented as of this encounter Procedures + +--------+ + + + | Procedure Name | Priori | Date/Time | Associated Diagnosis | Comments | | | ty | | | | + +--------+ + + + | MRI LUMBAR SPINE WO | Routin | 12/06/2012 | | Results for this | | CONTRAST | e | 12:32 PM | | procedure are in the | | | | PDT | | results section. | + +--------+ + + + documented in this encounter Results MRI Lumbar Spine wo Contrast (12/06/2012 12:32 PM PDT) + + | Specimen | + + | | + + + + + | Narrative | Performed At | + + + | [facility] MRI LUMBAR SPINE WO CONTRAST 12/06/2012 10:52 AM | | | HISTORY: Back pain and numbness. TECHNIQUE: Multiplanar MR | | | imaging was performed through the lumbar spine without gadolinium. | | | FINDINGS: Compared with October 12, 2012. There is lumbar scoliosis. | | | Would correlate to x-rays to determine severity. No significant | | | sagittal subluxation is seen. There is mild to moderate diffuse | | | degenerative disk disease throughout the lumbar spine. The conus | | | medullaris appears normal in position. Degenerative endplate | | | marrow signal changes are present at L4/5. T12/L1: There is a | | | small right paracentral disk protrusion that measures 3.6 mm in | | | thickness, without evidence of nerve root impingement. L1/2: There | | | is a small posterior disk bulge with a superimposed small right | | | paracentral disk protrusion or extrusion with a small amount of disk | | | material that has migrated along the posterior aspect of the L2 | | | vertebral body. The mass-effect on the thecal sac is very mild and | | | the disk herniation measures approximately 3.9 mm in thickness. | | | This is unlikely to cause significant nerve root impingement, but | | | could be a source of back pain. L2/3: There is a mild posterior | | | disk bulge that mildly indents the ventral thecal sac. There is mild | | | bilateral degenerative facet disease. These features are causing | | | mild bilateral foraminal narrowing. L3/4: A small posterior disk | | | bulge is present on this mildly indents the ventral thecal sac. | | | Degenerative facet disease at this level is moderate. Neural | | | foramina are mildly stenosed bilaterally. L4/5: There is a mild to | | | moderate disk bulge that lateralizes leftward where it is causing | | | moderate left neural foraminal stenosis and also some stenosis of the | | | left lateral recess where there is potential for impingement on the | | | proximal left L5 nerve root. Please correlate to that | | | distribution. Degenerative facet disease at this level is mild. | | | L5/S1: There is a small disk bulge with minor mass effect. | | | Degenerative facet disease at this level is mild. IMPRESSION: | | | 1. Disk bulge at L4/5 the lateralizes leftward and could be | | | impinging upon the proximal left L5 nerve root in the lateral recess. | | | Correlate clinically. 2. Small disk protrusions or extrusions at | | | T12/L1 and L1/2, with a low likelihood of nerve root impingement. | | | Could be sources of back pain, however. 3. Degenerative disk and | | | degenerative facet disease at multiple levels with areas of neural | | | foraminal narrowing, as above. 4. Scoliosis. Would correlate to | | | x-rays to determine severity. | | + + + + + | Procedure Note | + + | Alessandro, Rad Conversion - 12/03/2018 6:59 PM [facility] LUMBAR SPINE WO | | CONTRAST12/06/2012 10:52 AM HISTORY:Back pain and numbness. TECHNIQUE:Multiplanar MR | | imaging was performed through the lumbar spine without gadolinium. FINDINGS:Compared | | with October 12, 2012. There is lumbar scoliosis. Would correlate to x-rays to determine | | severity. No significant sagittal subluxation is seen. There is mild to moderate | | diffuse degenerative disk disease throughout the lumbar spine. The conus medullaris | | appears normal in position. Degenerative endplate marrow signal changes are present at | | L4/5. T12/L1: There is a small right paracentral disk protrusion that measures 3.6 mm in | | thickness, without evidence of nerve root impingement. L1/2: There is a small posterior | | disk bulge with a superimposed small right paracentral disk protrusion or extrusion | | with a small amount of disk material that has migrated along the posterior aspect of the | | L2 vertebral body. The mass-effect on the thecal sac is very mild and the disk | | herniation measures approximately 3.9 mm in thickness. This is unlikely to cause | | significant nerve root impingement, but could be a source of back pain. L2/3: There is a | | mild posterior disk bulge that mildly indents the ventral thecal sac. There is mild | | bilateral degenerative facet disease. These features are causing mild bilateral | | foraminal narrowing. L3/4: A small posterior disk bulge is present on this mildly | | indents the ventral thecal sac. Degenerative facet disease at this level is moderate. | | Neural foramina are mildly stenosed bilaterally. L4/5: There is a mild to moderate disk | | bulge that lateralizes leftward where it is causing moderate left neural foraminal | | stenosis and also some stenosis of the left lateral recess where there is potential for | | impingement on the proximal left L5 nerve root. Please correlate to that distribution. | | Degenerative facet disease at this level is mild. L5/S1: There is a small disk bulge | | with minor mass effect. Degenerative facet disease at this level is mild. IMPRESSION:1. | | Disk bulge at L4/5 the lateralizes leftward and could be impinging upon the proximal | | left L5 nerve root in the lateral recess. Correlate clinically.2. Small disk | | protrusions or extrusions at T12/L1 and L1/2, with a low likelihood of nerve root | | impingement. Could be sources of back pain, however.3. Degenerative disk and | | degenerative facet disease at multiple levels with areas of neural foraminal narrowing, | | as above.4. Scoliosis. Would correlate to x-rays to determine severity. Electronically | | signed by Peterson Sheikh MD on 12/06/2012 12:45 PM | |IMPRESSION: | |1. Disk bulge at L4/5 the lateralizes leftward and could be impinging upon the proximal le ft L5 nerve root in the lateral recess. Correlate clinically. | |2. Small disk protrusions or extrusions at T12/L1 and L1/2, with a low likelihood of nerve root impingement. Could be sources of back pain, however. | |3. Degenerative disk and degenerative facet disease at multiple levels with areas of neura l foraminal narrowing, as above. | |4. Scoliosis. Would correlate to x-rays to determine severity. | | | | | + + documented in this encounter Visit Diagnoses + + | Diagnosis | + + | Neck pain Cervicalgia | + + | Numbness Disturbance of skin sensation | + + documented in this encounter"
[~2019-11-25 15:13] MED LIST changes: +CEPHALEXIN500 MG PO; +EFFEXOR XR37.5 MG; +NEURONTIN100 MG PO
--- OUTSIDE RECORDS SUMMARY | 2019-11-25 15:16 | XMS ---
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 Carlos VISIT COUNT (12 MO.) 2 DAKOTAH Pal TOTAL 2 NOTE: Visits indicate total known visits. ED/UCC VISIT TRACKING (12 MO.) 11/25/2019 15:14 DAKOTAH Melgar TYPE: Emergency COMPLAINT: - BLOOD PRESSUE PROBLEM, ALTERED LOC, POSSIBLE UTI 12/14/2018 17:21 DAKOTAH Melgar TYPE: Emergency COMPLAINT: - CHILLS INPATIENT VISIT TRACKING (12 MO.) 06/15/2019 05:56 Hui ESPOSITO TYPE: Intensive Care COMPLAINT: - CERVICAL SPONDYLOSIS WITH RADIULOPATHY 12/14/2018 17:22 DAKOTAH Rey [place] TYPE: Observation COMPLAINT: - FEVER DIAGNOSES: - Other nursing home (current) drug therapy - Fever, unspecified - Major depressive disorder, single episode, unspecified - Allergy status to sulfonamides status - Personal history of other diseases of the circulatory system - FPC (current) use of non-steroidal anti-inflammatories - Allergy status to narcotic agent status - Anxiety disorder, unspecified - Essential (primary) hypertension - Gastro-esophageal reflux disease without esophagitis - Malignant neoplasm of unspecified site of right female breast [email or web address]
--- NOTE | 2019-11-26 17:32 | EKG ---
[facility] [address] [address] [place] [address] Signed Normal sinus rhythm Low voltage QRS Inferior infarct , age undetermined Cannot rule out Anterior infarct , age undetermined Abnormal ECG When compared with ECG of 14-DEC-2018 19:37, Inferior infarct is now present Nonspecific T wave abnormality no longer evident in Inferior leads Nonspecific T wave abnormality, improved in Lateral leads Confirmed by DANNY MARX DO ([id number]) on 11/26/2019 5:32:42 PM Electronically Signed By: DANNY MARX DO 11/26/19 1732 PATIENT NAME: NATHAN DURÁN Electrocardiogram DATE OF : 40 PHYSICIAN: DANNY MARX DO REPORT #: [id number] REPORT IS CONFIDENTIAL AND NOT TO BE RELEASED WITHOUT AUTHORIZATION
== END 2019-11-25 18:51 | disposition home or self-care (01) ==
LOC: ED 15:13
DX: R53.1 Weakness (principal); R07.9 Chest pain, unspecified; F32.9 Major depressive disorder, single episode, unspecified; F41.9 Anxiety disorder, unspecified; K21.9 Gastro-esophageal reflux disease without esophagitis; I48.91 Unspecified atrial fibrillation; Z88.2 Allergy status to sulfonamides; Z88.5 Allergy status to narcotic agent; Z88.8 Allergy status to other drugs, medicaments and biological substances; Z79.899 Other long term (current) drug therapy
CPT/HCPCS: 70450; 71046; 80053; 81001; 84484; 85025; 93005; 93010; 99285-25

== ENCOUNTER 2021-06-15 11:11 | Emergency (ER) | payer MEDICARE, OTHER ==
[~2021-06-15] VITALS: Ht 170.2 cm; Wt 71.5 kg
[~2021-06-15 11:11] MED LIST changes: -EFFEXOR XR37.5 MG; +EFFEXOR XR75 MG PO; -HCTZ/TRIAMTERENE; +MAXZIDE 75 MG-501 EA PO; -METOPROLOL TART25 MG PO; +NEXIUM40 MG PO; +TOPROL XL25 MG PO
[2021-06-15] MEDS ORDERED: ANASTROZOLE1 MG PO (14:35)
[2021-06-15] MEDS ORDERED: VALSARTAN80 MG PO (14:35)
[2021-06-15] MEDS ORDERED: SINGULAIR10 MG PO (14:38)
[2021-06-15] MEDS ORDERED: ELIQUIS5 MG PO (14:39)
--- NOTE | 2021-06-16 15:19 | EKG ---
[facility] [address] [facility] [place] [address] Signed Normal sinus rhythm Anterior infarct (cited on or before 25-NOV-2019) ST \T\ Marked T wave abnormality, consider inferolateral ischemia Abnormal ECG When compared with ECG of 25-NOV-2019 16:33, Criteria for Inferior infarct are no longer present ST now depressed in Lateral leads T wave inversion now evident in Inferior leads T wave inversion now evident in Anterolateral leads QT has lengthened Confirmed by MARIYA RAMOS MD ([id number]) on 06/16/2021 3:19:10 PM Electronically Signed By: MARIYA RAMOS MD 06/16/21 1519 PATIENT NAME: NATHAN DURÁN Electrocardiogram DATE OF : 40 PHYSICIAN: MARIYA RAOMS MD REPORT #: [id number] REPORT IS CONFIDENTIAL AND NOT TO BE RELEASED WITHOUT AUTHORIZATION
== END 2021-06-15 16:04 | disposition short-term general hospital (02) ==
LOC: ED 11:11
DX: I50.9 Heart failure, unspecified (principal); I24.9 Acute ischemic heart disease, unspecified; K21.9 Gastro-esophageal reflux disease without esophagitis; Z85.3 Personal history of malignant neoplasm of breast; I48.91 Unspecified atrial fibrillation; Z88.2 Allergy status to sulfonamides; Z88.5 Allergy status to narcotic agent; Z88.8 Allergy status to other drugs, medicaments and biological substances; Z79.899 Other long term (current) drug therapy; Z20.822 Contact with and (suspected) exposure to COVID-19
CPT/HCPCS: 36415; 71045; 80048; 83880; 84484; 85025; 93005; 93010; 99285-25; C9803; U0003

== ENCOUNTER 2021-11-07 15:40 | Emergency (ER) | payer MEDICARE, OTHER ==
[~2021-11-07] VITALS: Ht 170.2 cm; Wt 59.3 kg
[~2021-11-07 15:40] MED LIST changes: +ANASTROZOLE1 MG PO; +ELIQUIS5 MG PO; +SINGULAIR10 MG PO; +VALSARTAN80 MG PO
[2021-11-07] MEDS ORDERED: CEPHALEXIN250 MG PO (22:58)
[2021-11-07] MEDS ORDERED: ONDANSETRON ODT8 MG PO (23:01)
--- NOTE | 2021-11-08 08:55 | EKG ---
[facility] [address] [facility] [place] [address] Signed Normal sinus rhythm Inferior infarct , age undetermined Possible Anterior infarct (cited on or before 25-NOV-2019) Abnormal ECG When compared with ECG of 15-JUN-2021 11:13, Inferior infarct is now present T wave inversion no longer evident in Inferior leads T wave inversion less evident in Anterolateral leads Confirmed by WENDY BARRY MD ([id number]) on 11/08/2021 8:55:23 AM Electronically Signed By: WENDY BARRY MD 11/08/21 0855 PATIENT NAME: NATHAN DURÁN Electrocardiogram DATE OF : 40 PHYSICIAN: WENDY BARRY MD REPORT #: [id number] REPORT IS CONFIDENTIAL AND NOT TO BE RELEASED WITHOUT AUTHORIZATION
== END 2021-11-07 23:59 | disposition home or self-care (01) ==
LOC: ED 15:40
DX: N39.0 Urinary tract infection, site not specified (principal); E86.0 Dehydration; K21.9 Gastro-esophageal reflux disease without esophagitis; Z85.3 Personal history of malignant neoplasm of breast; I48.91 Unspecified atrial fibrillation; Z88.2 Allergy status to sulfonamides; Z88.5 Allergy status to narcotic agent; Z88.8 Allergy status to other drugs, medicaments and biological substances; Z79.899 Other long term (current) drug therapy
CPT/HCPCS: 36415; 70450; 71045; 73522; 80053; 81001; 83735; 83880; 84484; 85025; 87088; 93005; 93010; 96361; 96365; 96375; 99285-25; J0696; J2405; J7121

== ENCOUNTER 2022-03-04 21:32 | Observation (INO) | payer MEDICARE, OTHER ==
[~2022-03-04] VITALS: Ht 170.2 cm; Wt 68.0 kg
[~2022-03-04 21:32] MED LIST changes: +CEPHALEXIN250 MG PO; +ONDANSETRON ODT8 MG PO; +SYSTANE 0.3-0.1 EACH OPTH; -SYSTANE 0.3-0.415 ML OPTH
[2022-03-05] MEDS ORDERED: PERCOCET 5-3251 EACH PO (00:13)
[2022-03-05] MEDS ORDERED: CEPHALEXIN500 MG PO (00:20)
[2022-03-05] MEDS ORDERED: CALCIUM CA500 MG/5 M PO (16:36)
[2022-03-05] MEDS ORDERED: DICYCLOMINE HCL10 MG PO (16:44)
[2022-03-05] MEDS ORDERED: ISOSORBIDE MONO30 MG PO (16:45)
[2022-03-05] MEDS ORDERED: HYDROXYZINE HCL25 MG PO (16:45)
[2022-03-07] MEDS ORDERED: TIZANIDINE HCL4 MG PO (08:39)
[2022-03-07] MEDS ORDERED: PERCOCET 5-3251 EACH PO (08:40)
== END 2022-03-07 11:50 | disposition home or self-care (01) ==
LOC: ED 21:32 → MS 21:33
PROVIDERS: ADMIT Family Medicine; ATTEND Family Medicine
DX: S12.600A Unspecified displaced fracture of seventh cervical vertebra, initial encounter for closed fracture (principal); W18.30XA Fall on same level, unspecified, initial encounter; N39.0 Urinary tract infection, site not specified; I48.91 Unspecified atrial fibrillation; E03.9 Hypothyroidism, unspecified; I10 Essential (primary) hypertension; Z66 Do not resuscitate; Z88.2 Allergy status to sulfonamides; Z88.5 Allergy status to narcotic agent; Z88.8 Allergy status to other drugs, medicaments and biological substances; Z91.02 Food additives allergy status; K21.9 Gastro-esophageal reflux disease without esophagitis; F32.A Depression, unspecified; Z20.822 Contact with and (suspected) exposure to COVID-19
CPT/HCPCS: 36415; 70450; 71250; 72125; 73502; 80053; 81001; 85025; 86850; 86900; 86901; 87088; 87186; 96365; 96375; 96376; 97140; 97162; 97530; 99285-25; A9270; G0378; G0480; J0696; J1170; J2060; J3010; J3360; J7121; U0003

== ENCOUNTER 2022-03-14 12:29 | Emergency (ER) | payer MEDICARE, OTHER ==
[~2022-03-14] VITALS: Ht 170.2 cm; Wt 67.6 kg
[~2022-03-14 12:29] MED LIST changes: +CALCIUM CA500 MG/5 M PO; +HYDROXYZINE HCL25 MG PO; +ISOSORBIDE MONO30 MG PO; +PERCOCET 5-3251 EACH PO; +TIZANIDINE HCL4 MG PO
--- OUTSIDE RECORDS SUMMARY | 2022-03-14 12:30 | XMS ---
PreManage Notification: NATHAN LOVE Security System Controller Events No recent Security Events currently on file CRITERIA MET - [facility] - [facility] - 2 Visits in 30 Days CARE PROVIDERS JOANA SANTOS Internal Medicine Current PHONE: Unknown Jacob has no Care Guidelines for this patient. Care History Medical/Surgical 11/28/2019 [facility] - Patient is currently established with [facility]. If patient is seen in the ED during business hours. Please contact CHWs at [facility]. Care Recommendation: If this patient has had 5 or more Emergency Department visits in the last 12 months.\T\nbsp; Patient will require education on the scope and purpose of the ED as an acute care provider not a Primary Care Provider and should not be utilized for chronic conditions.\T\nbsp; These are guidelines and the provider should exercise clinical judgment when providing care. E.D. VISIT COUNT ([address] [facility] TOTAL 4 NOTE: Visits indicate total known visits. ED/UCC VISIT TRACKING (12 MO.) 03/14/2022 12:[address] [facility] [place] TYPE: Emergency COMPLAINT: - POSS STROKE 03/04/2022 21:[address] [facility] [place] TYPE: Emergency COMPLAINT: - FALL 11/07/2021 15:40 [facility] [place] TYPE: Emergency COMPLAINT: - WEAKNESS DIAGNOSES: - Personal history of malignant neoplasm of breast - Other prison (current) drug therapy - Weakness - Allergy status to narcotic agent - Dehydration - Allergy status to other drugs, medicaments and biological substances - Urinary tract infection, site not specified - Unspecified atrial fibrillation - Gastro-esophageal reflux disease without esophagitis - Allergy status to sulfonamides 06/15/2021 11:11 [facility] [place] TYPE: Emergency COMPLAINT: - CHEST PAIN DIAGNOSES: - Other chest pain - Heart failure, unspecified - Other prison (current) drug therapy - Allergy status to sulfonamides - Unspecified atrial fibrillation - Contact with and (suspected) exposure to COVID-19 - Personal history of malignant neoplasm of breast - Gastro-esophageal reflux disease without esophagitis - Acute ischemic heart disease, unspecified - Allergy status to other drugs, medicaments and biological substances - Allergy status to narcotic agent INPATIENT VISIT TRACKING (12 MO.) 03/04/2022 21:33 [facility] [place] TYPE: Observation COMPLAINT: - STABLE C7 SUPERIOR FACET FX, UTI, INTRACTABLE PAIN DIAGNOSES: - Food additives allergy status - Unspecified displaced fracture of seventh cervical vertebra, initial encounter for closed fracture - Hypothyroidism, unspecified - Unspecified atrial fibrillation - Depression, unspecified - Contact with and (suspected) exposure to COVID-19 - Allergy status to sulfonamides - Fall on same level, unspecified, initial encounter - Gastro-esophageal reflux disease without esophagitis - Urinary tract infection, site not specified - Do not resuscitate - Essential (primary) hypertension - Allergy status to narcotic agent - Allergy status to other drugs, medicaments and biological substances [facility]15[facility]2021 17[facility] [place] Medical [facility] COMPLAINT: - CHEST PAIN, N/V, EKG CHANGES DIAGNOSES: 0. Unstable angina 1. Atherosclerotic heart disease of [place] coronary artery with unstable angina pectoris 2. Supraventricular tachycardia 3. Paroxysmal atrial fibrillation 4. Gastro-esophageal reflux disease without esophagitis 5. Hypothyroidism, unspecified 6. Hyperglycemia, unspecified 7. Noninfective gastroenteritis and colitis, unspecified 8. Alzheimer's disease, unspecified 9. Dementia in other diseases classified elsewhere, unspecified severity, without behavioral disturbance, psychotic disturbance, mood disturbance, and anxiety 10. [facility] (current) use of anticoagulants 11. [facility] (current) use of aspirin 12. Other prison (current) drug therapy 13. Personal history of transient ischemic attack (TIA), and cerebral infarction without residual deficits 14. Personal history of malignant neoplasm of breast 15. Personal history of irradiation 16. Personal history of urinary (tract) infections 17. Allergy status to other antibiotic agents 18. Allergy status to sulfonamides 19. Allergy status to narcotic agent 20. Allergy status to other drugs, medicaments and biological substances 21. Family history of ischemic heart disease and other diseases of the circulatory system [email or web address]
== END 2022-03-14 16:54 | disposition home or self-care (01) ==
LOC: ED 12:29
DX: R41.0 Disorientation, unspecified (principal); R47.89 Other speech disturbances; T40.2X5A Adverse effect of other opioids, initial encounter; T48.205A Adverse effect of unspecified drugs acting on muscles, initial encounter; K21.9 Gastro-esophageal reflux disease without esophagitis; I48.91 Unspecified atrial fibrillation; Z88.2 Allergy status to sulfonamides; Z88.5 Allergy status to narcotic agent; Z91.018 Allergy to other foods; Z79.899 Other long term (current) drug therapy
CPT/HCPCS: 36415; 70450; 80053; 81003; 85025; 99285-25

== ENCOUNTER 2022-04-15 18:02 | Emergency (ER) | payer MEDICARE, OTHER ==
[~2022-04-15] VITALS: Ht 170.2 cm; Wt 63.7 kg
--- OUTSIDE RECORDS SUMMARY | 2022-04-15 18:04 | XMS ---
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 Care History Medical/Surgical 11/28/2019 [facility] - Patient is currently established with [facility]. If patient is seen in the ED during business hours. Please contact CHWs at [facility]. Care Recommendation: If this patient has had [...] providing care. E.D. VISIT COUNT (12 MO.) 5 [facility] TOTAL 5 NOTE: Visits indicate total known visits. ED/UCC VISIT TRACKING (12 MO.) 04/15/2022 18:03 [facility] [place] TYPE: Emergency COMPLAINT: - TRAUMA ADULT 03/14/2022 12:29 [facility] [place] TYPE: Emergency COMPLAINT: - POSS STROKE DIAGNOSES: - Allergy to other foods - Allergy status to narcotic agent - Disorientation, unspecified - Adverse effect of other opioids, initial encounter - Slurred speech - Adverse effect of unspecified drugs acting on muscles, initial encounter - Unspecified atrial fibrillation - Other speech disturbances - Other [facility] (current) drug therapy - Allergy status to sulfonamides - Gastro-esophageal reflux disease without esophagitis 03/04/2022 21:32 [facility] [place] TYPE: Emergency COMPLAINT: - FALL 11/07/2021 15:40 [facility] [place] TYPE: Emergency COMPLAINT: - WEAKNESS DIAGNOSES: - Allergy status to sulfonamides - Personal history of malignant neoplasm of breast - Other [facility] (current) drug therapy - Weakness - Allergy status to narcotic agent - Dehydration - Allergy status to other drugs, medicaments and biological substances - Urinary tract infection, site not specified - Unspecified atrial fibrillation - Gastro-esophageal reflux disease without esophagitis 06/15/2021 11:11 [facility] [place] TYPE: Emergency COMPLAINT: - CHEST PAIN DIAGNOSES: - Allergy status to narcotic agent - Other chest pain - Heart failure, unspecified - Other [facility] (current) drug therapy - Allergy status to sulfonamides - Unspecified atrial fibrillation - Contact with and (suspected) exposure to COVID-19 - Personal history of malignant neoplasm of breast - Gastro-esophageal reflux disease without esophagitis - Acute ischemic heart disease, unspecified - Allergy status to other drugs, medicaments and biological substances INPATIENT VISIT TRACKING (12 MO.) 03/04/2022 21:33 [facility] [place] TYPE: Observation COMPLAINT: - STABLE C7 SUPERIOR FACET FX, UTI, INTRACTABLE PAIN DIAGNOSES: - Allergy status to other drugs, medicaments and biological substances - Food additives allergy status - Unspecified [...] hypertension - Allergy status to narcotic agent 06/15/2021 17:08 [facility] TYPE: Medical Surgical COMPLAINT: - CHEST PAIN, N/V, EKG CHANGES DIAGNOSES: 0. Unstable angina 1. Atherosclerotic heart disease of [place] coronary artery with unstable angina pectoris 2. Supraventricular tachycardia 3. Paroxysmal atrial fibrillation 4. Gastro-esophageal reflux disease without esophagitis 5. Hypothyroidism, unspecified 6. Hyperglycemia, unspecified 7. Noninfective gastroenteritis and colitis, unspecified 8. Alzheimer's disease, unspecified 9. Dementia in other diseases classified elsewhere, unspecified severity, without behavioral disturbance, psychotic disturbance, mood disturbance, and anxiety 10. senior care (current) use of anticoagulants 11. senior care (current) use of aspirin 12. Other computer terminal operator (current) drug therapy 13. Personal history of [...] and other diseases of the circulatory system [email or web address]
== END 2022-04-15 19:50 | disposition home or self-care (01) ==
LOC: ED 18:02
DX: S09.90XA Unspecified injury of head, initial encounter (principal); S12.600A Unspecified displaced fracture of seventh cervical vertebra, initial encounter for closed fracture; K21.9 Gastro-esophageal reflux disease without esophagitis; Z85.3 Personal history of malignant neoplasm of breast; I48.91 Unspecified atrial fibrillation; Z88.8 Allergy status to other drugs, medicaments and biological substances; Z88.5 Allergy status to narcotic agent; Z88.2 Allergy status to sulfonamides; Z91.018 Allergy to other foods; Z79.899 Other long term (current) drug therapy; W22.8XXA Striking against or struck by other objects, initial encounter
CPT/HCPCS: 36415; 70450; 72125; 80053; 85025; 99284-25; A9270; G0480

== ENCOUNTER 2023-02-13 12:51 | Emergency (ER) | payer MEDICARE, OTHER ==
[~2023-02-13] VITALS: Ht 170.2 cm; Wt 60.5 kg
[~2023-02-13 12:51] MED LIST changes: +CEPHALEXIN500 M1 PO; +MACROBID 100 M100 MG PO; +METOPROLOL TART25 MG PO; +MIRAPEX0.125 MG PO; +NITROSTAT0.4 MG SL; +PAXLOVID 300-11 EACH PO
--- OUTSIDE RECORDS SUMMARY | 2023-02-13 12:54 | XMS ---
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 Care History Medical/Surgical 11/28/2019 [facility] - Patient is currently established with [facility]. If patient is seen in the ED during business hours. Please contact CHWs at [facility]. Care Recommendation: If this patient has had [...] providing care. E.D. VISIT COUNT (12 MO.) 8 [facility] 1 [facility] TOTAL 9 NOTE: Visits indicate total known visits. ED/UCC VISIT TRACKING (12 MO.) 02/13/2023 12:[address] [facility] [place] TYPE: Emergency COMPLAINT: - FLU SYMPTOMS, WEAKNESS 2023 13:[address] [facility] [place] TYPE: Emergency COMPLAINT: - COLD SYMPTOMS DIAGNOSES: - Allergy status to narcotic agent - Allergy status to other drugs, medicaments and biological substances - Allergy status to sulfonamides - Allergy to other foods - Anxiety disorder, unspecified - Cough, unspecified - COVID-19 - Depression, unspecified - Gastro-esophageal reflux disease without esophagitis - Hormone replacement therapy - shelter (current) use of anticoagulants - Other correction (current) drug therapy - Unspecified atrial fibrillation 11/07/2022 10:06 [facility] [place] TYPE: Emergency COMPLAINT: - BODY NUMBNESS, LOW B/P, LOW O2 SATS DIAGNOSES: - Allergy status to analgesic agent - Allergy status to narcotic agent - Allergy status to sulfonamides - Allergy to other foods - Contact with and (suspected) exposure to COVID-19 - Gastro-esophageal reflux disease without esophagitis - shelter (current) use of anticoagulants - Other fatigue - Other correction (current) drug therapy - Unspecified atrial fibrillation - Urinary tract infection, site not specified 10/17/2022 12:07 [facility] TYPE: Emergency DIAGNOSES: - Dehydration - Nonspecific low blood-pressure reading - Hypotension 08/01/2022 14:33 [facility] TYPE: Emergency COMPLAINT: - DIZZINESS DIAGNOSES: - Allergy status to narcotic agent - Allergy status to other drugs, medicaments and biological substances - Allergy status to sulfonamides - Dizziness and giddiness - Hypotension, unspecified - 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 - Other correction (current) drug therapy - Personal history of transient ischemic attack (TIA), and cerebral infarction without residual deficits - Urinary tract infection, site not specified 06/22/2022 18:33 [facility] [place] TYPE: Emergency COMPLAINT: - EKG AT HOME WAS NOT LOOKING RIGHT DIAGNOSES: - Allergy status to narcotic agent - Allergy status to other drugs, medicaments and biological substances - Allergy status to sulfonamides - Chest pain, unspecified - Gastro-esophageal reflux disease without esophagitis - Other correction (current) drug therapy - Pain in left shoulder - Personal history of malignant neoplasm of breast - Unspecified atrial fibrillation 04/15/2022 18:03 [facility] [place] TYPE: Emergency COMPLAINT: - TRAUMA ADULT DIAGNOSES: - Allergy status to narcotic agent - Allergy status to other drugs, medicaments and biological substances - Allergy status to sulfonamides - Allergy to other foods - Gastro-esophageal reflux disease without esophagitis - Other simplex operator (current) drug therapy - Personal history of malignant neoplasm of breast - Striking against or struck by other objects, initial encounter - Unspecified atrial fibrillation - Unspecified displaced fracture of seventh cervical vertebra, initial encounter for closed fracture - Unspecified injury of head, initial encounter 03/14/2022 12:29 [facility] [place] TYPE: Emergency COMPLAINT: - POSS STROKE DIAGNOSES: - Adverse effect of other opioids, initial encounter - Adverse effect of unspecified drugs acting on muscles, initial encounter - Allergy status to narcotic agent - Allergy status to sulfonamides - Allergy to other foods - Disorientation, unspecified - Gastro-esophageal reflux disease without esophagitis - Other correction (current) drug therapy - Other speech disturbances - Slurred speech - Unspecified atrial fibrillation 03/04/2022 21:32 [facility] [place] TYPE: Emergency COMPLAINT: - FALL INPATIENT VISIT TRACKING (12 MO.) 03/04/2022 21:33 [facility] [place] TYPE: Observation COMPLAINT: - STABLE C7 SUPERIOR FACET FX, UTI, INTRACTABLE PAIN DIAGNOSES: - Allergy status to narcotic agent - Allergy status to other drugs, medicaments and biological substances - Allergy status to sulfonamides - Contact with and (suspected) exposure to COVID-19 - Depression, unspecified - Do not resuscitate - Essential (primary) hypertension - Fall on same level, unspecified, initial encounter - Food additives allergy status - Gastro-esophageal reflux disease without esophagitis - Hypothyroidism, unspecified - shelter (current) use of anticoagulants - Other correction (current) drug therapy - Unspecified atrial fibrillation - Unspecified displaced fracture of seventh cervical vertebra, initial encounter for closed fracture - Urinary tract infection, site not specified [email or web address]
[2023-02-13 14:14] LABS: BASOPHILS 0.8 % (0-2); EOSINOPHILS 2.3 % (0-6); HEMATOCRIT 37.1 % (35.0-50.0); HEMOGLOBIN 12.5 g/dL (12.0-18.0); LYMPHOCYTES 16.6 % (24-44); MCH 30.4 (27-36); MCHC 33.8 g/dl (30-36); MCV 89.9 fl (81-99); MONOCYTES 9.7 % (0-12); NEUTROPHILS 70.6 % (39-80); PLATELET COUNT 353 K/uL (140-440); RBC 4.12 M/ul (4.3-5.7); RDW 14.2 (10.5-15.0)
[2023-02-13 14:18] LABS: ALBUMIN/GLOBULIN RATIO 0.91 (1.1-2.4); ANION GAP 10.4 (7-21); BILIRUBIN, TOTAL 0.7 ng/dL (0.2-1.0); BUN/CREATININE RATIO 16.47 (6.0-28.6); CALCIUM 8.9 mg/dL (8.5-10.1); CREATININE, SERUM 0.85 mg/dL (0.55-1.02); POTASSIUM 4.4 mmol/L (3.5-5.1); PROTEIN, TOTAL 6.3 g/dL (6.4-8.2)
[2023-02-13 15:39] LABS: BILIRUBIN, URINE NEGATIVE (negative); BLOOD/HGB, URINE NEGATIVE (Negative); KETONE, URINE NEGATIVE (Negative); LEUK ESTERASE, URINE TRACE (negative); NITRITE, URINE NEGATIVE (negative)
[2023-02-13 15:49] LABS: BACTERIA, URINE 4+ /hpf (negative); CASTS, URINE NONE SEEN \\lpf; CRYSTALS, URINE NONE SEEN (0-1+); EPITHELIAL CELLS, URINE SQUAMOUS 3+ /lpf (0-1+); RED BLOOD CELLS, URINE 0-1 /hpf (0-5)
[2023-02-13 15:50] LABS: COLLECTION TYPE, URINE CLEAN CATCH; REFLEX CULTURE, URINE No (No)
[2023-02-13 16:54] VITALS: BP 127/56
== END 2023-02-13 16:58 | disposition home or self-care (01) ==
LOC: ED 12:51
PROVIDERS: Emergency Medicine
DX: R53.1 Weakness (principal); U09.9 Post COVID-19 condition, unspecified; Z86.73 Personal history of transient ischemic attack (TIA), and cerebral infarction without residual deficits; Z91.018 Allergy to other foods; Z88.5 Allergy status to narcotic agent; Z88.8 Allergy status to other drugs, medicaments and biological substances; Z79.899 Other long term (current) drug therapy; Z79.01 Long term (current) use of anticoagulants; Z79.890 Hormone replacement therapy
CPT/HCPCS: 36415; 80053; 81001; 85025; 99284; A9270; J7030

== ENCOUNTER 2023-02-15 05:42 | Emergency (ER) | payer MEDICARE, OTHER ==
[~2023-02-15] VITALS: Ht 170.2 cm; Wt 61.7 kg
--- OUTSIDE RECORDS SUMMARY | 2023-02-15 05:44 | XMS ---
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 Care History Medical/Surgical 11/28/2019 [facility] - Patient is currently established with [facility]. If patient is seen in the ED during business hours. Please contact CHWs at [facility]. Care Recommendation: If this patient has [...] providing care. E.D. VISIT COUNT (12 MO.) 9 [facility] 1 [facility] TOTAL 10 NOTE: Visits indicate total known visits. ED/UCC VISIT TRACKING (12 MO.) 02/15/2023 05:43 [facility] [place] TYPE: Emergency COMPLAINT: - CP 02/13/2023 12:52 [facility] [place] TYPE: Emergency COMPLAINT: - FLU SYMPTOMS, WEAKNESS 2023 13:31 [facility] [place] TYPE: Emergency COMPLAINT: - COLD SYMPTOMS DIAGNOSES: - Allergy status to narcotic agent - Allergy status to other drugs, medicaments and biological substances - Allergy status to sulfonamides - Allergy to other foods - Anxiety disorder, unspecified - Cough, unspecified - COVID-19 - Depression, unspecified - Gastro-esophageal reflux disease without esophagitis - Hormone replacement therapy - [facility] (current) use of anticoagulants - Other terminal manager (current) drug therapy - Unspecified atrial fibrillation 11/07/2022 10:06 [facility] [place] TYPE: Emergency COMPLAINT: - BODY NUMBNESS, LOW B/P, LOW O2 SATS DIAGNOSES: - Allergy status to analgesic agent - Allergy status to narcotic agent - Allergy status to sulfonamides - Allergy to other foods - Contact with and (suspected) exposure to COVID-19 - Gastro-esophageal reflux disease without esophagitis - [facility] (current) use of anticoagulants - Other fatigue - Other terminal manager (current) drug therapy - Unspecified atrial fibrillation - Urinary tract infection, site not specified 10/17/2022 12:07 [facility] TYPE: Emergency DIAGNOSES: - Dehydration - Nonspecific low blood-pressure reading - Hypotension 08/01/2022 14:33 [facility] [place] TYPE: Emergency COMPLAINT: - DIZZINESS DIAGNOSES: - Allergy status to narcotic agent - Allergy status to other drugs, medicaments and biological substances - Allergy status to sulfonamides - Dizziness and giddiness - Hypotension, unspecified - terminal make up 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 - Other detention (current) drug therapy - Personal history of [...] Gastro-esophageal reflux disease without esophagitis - Other detention (current) drug therapy - Pain in left [...] Gastro-esophageal reflux disease without esophagitis - Other detention (current) drug therapy - Personal history of [...] Gastro-esophageal reflux disease without esophagitis - Other terminal manager (current) drug therapy - Other speech disturbances - Slurred speech - Unspecified atrial fibrillation 03/04/2022 21:32 [facility] [place] TYPE: Emergency COMPLAINT: - FALL INPATIENT VISIT TRACKING (12 MO.) 03/04/2022 21:[address] [facility] [place] TYPE: Observation COMPLAINT: - STABLE C7 [...] disease without esophagitis - Hypothyroidism, unspecified - terminal make up 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 - Other detention (current) drug therapy - Unspecified atrial fibrillation - Unspecified displaced fracture of seventh cervical vertebra, initial encounter for closed fracture - Urinary tract infection, site not specified [email or web address]
[2023-02-15] MEDS ORDERED: MONTELUKAST SOD10 MG PO (05:57)
[2023-02-15] MEDS ORDERED: METHOCARBAMOL500 MG PO (05:57)
[2023-02-15 06:04] LABS: BASOPHILS 0.5 % (0-2); EOSINOPHILS 2.4 % (0-6); HEMATOCRIT 35.3 % (35.0-50.0); HEMOGLOBIN 11.8 g/dL (12.0-18.0); LYMPHOCYTES 16.5 % (24-44); MCH 30.3 (27-36); MCHC 33.4 g/dl (30-36); MCV 90.7 fl (81-99); MONOCYTES 10.5 % (0-12); NEUTROPHILS 70.1 % (39-80); PLATELET COUNT 295 K/uL (140-440); RBC 3.89 M/ul (4.3-5.7); RDW 13.6 (10.5-15.0)
[2023-02-15 06:14] LABS: PROTIME 12.7 Sec (11.2-14.2)
[2023-02-15 06:26] LABS: ALBUMIN/GLOBULIN RATIO 0.97 (1.1-2.4); ANION GAP 12.7 (7-21); BILIRUBIN, TOTAL 0.7 ng/dL (0.2-1.0); BUN/CREATININE RATIO 17.8 (6.0-28.6); CALCIUM 8.3 mg/dL (8.5-10.1); CREATININE, SERUM 0.73 mg/dL (0.55-1.02); MAGNESIUM 1.8 mg/dL (1.8-2.4); POTASSIUM 4.7 mmol/L (3.5-5.1); PROTEIN, TOTAL 6.1 g/dL (6.4-8.2)
[2023-02-15] MEDS ORDERED: CYCLOBENZAPRINE10 MG PO (06:38)
[2023-02-15 06:54] VITALS: BP 132/58
--- NOTE | 2023-02-15 15:20 | EKG ---
[facility] [address] [place], [place] [address] Signed Normal sinus rhythm Normal ECG No previous ECGs available Confirmed by CARMEN KUMAR MD ([id number]) on 02/15/2023 3:20:26 PM Electronically Signed By: CARMEN KUMAR 02/15/23 1520 PATIENT NAME: NATHAN LOVE Electrocardiogram DATE OF : 40 PHYSICIAN: CARMEN KUMAR REPORT #: [id number] REPORT IS CONFIDENTIAL AND NOT TO BE RELEASED WITHOUT AUTHORIZATION
== END 2023-02-15 06:54 | disposition home or self-care (01) ==
LOC: ED 05:42
PROVIDERS: Family Medicine
DX: R07.89 Other chest pain (principal); I48.91 Unspecified atrial fibrillation; I25.2 Old myocardial infarction; K21.9 Gastro-esophageal reflux disease without esophagitis; F32.A Depression, unspecified; F41.9 Anxiety disorder, unspecified; Z88.2 Allergy status to sulfonamides; Z88.6 Allergy status to analgesic agent; Z91.018 Allergy to other foods; Z79.899 Other long term (current) drug therapy; Z79.01 Long term (current) use of anticoagulants
CPT/HCPCS: 36415; 71045; 80053; 83735; 83880; 84484; 85025; 85379; 85610; 93005; 93010; A9270; J2270

== ENCOUNTER 2024-02-13 08:12 | Emergency (ER) | payer MEDICARE, OTHER ==
[~2024-02-13] VITALS: Ht 170.2 cm; Wt 67.2 kg
[~2024-02-13 08:12] MED LIST changes: +CYCLOBENZAPRINE10 MG PO; +METHOCARBAMOL500 MG PO; +MONTELUKAST SOD10 MG PO
[2024-02-13] MEDS ORDERED: COLESTIPOL HCL1 GM PO (08:29)
[2024-02-13] MEDS ORDERED: VENLAFAXINE HC150 MG PO (08:30)
[2024-02-13] MEDS ORDERED: ZYRTEC10 MG PO (08:33)
[2024-02-13] MEDS ORDERED: MEMANTINE HCL10 MG PO (08:33)
[2024-02-13] MEDS ORDERED: FLUTICASONE PRO16 GM NAS (08:34)
[2024-02-13] MEDS ORDERED: ATORVASTATIN CA40 MG PO (08:34)
[2024-02-13 08:59] LABS: BASOPHILS 0.7 % (0-2); EOSINOPHILS 3.5 % (0-6); HEMATOCRIT 36.8 % (35.0-50.0); HEMOGLOBIN 12.6 g/dL (12.0-18.0); LYMPHOCYTES 35.8 % (24-44); MCH 30.1 (27-36); MCHC 34.1 g/dl (30-36); MCV 88.2 fl (81-99); MONOCYTES 7.4 % (0-12); NEUTROPHILS 52.6 % (39-80); PLATELET COUNT 275 K/uL (140-440); RBC 4.18 M/ul (4.3-5.7); RDW 14.5 (10.5-15.0)
[2024-02-13 09:28] LABS: INFLUENZA B NAA NEGATIVE (NEGATIVE); RESPIRATORY SYNCYTIAL VIR NAA NEGATIVE (NEGATIVE)
[2024-02-13 09:34] LABS: ALBUMIN 3.3 g/dL (3.4-5.0); ALBUMIN/GLOBULIN RATIO 1.22 (1.1-2.4); ANION GAP 7.4 (7-21); BILIRUBIN, TOTAL 0.3 ng/dL (0.2-1.0); CALCIUM 8.4 mg/dL (8.5-10.1); CREATININE, SERUM 0.75 mg/dL (0.55-1.02); MAGNESIUM 1.8 mg/dL (1.8-2.4); POTASSIUM 3.4 mmol/L (3.5-5.1)
[2024-02-13 10:02] LABS: BILIRUBIN, URINE NEGATIVE (negative); BLOOD/HGB, URINE NEGATIVE (Negative); KETONE, URINE NEGATIVE (Negative); LEUK ESTERASE, URINE SMALL (negative); NITRITE, URINE POSITIVE (negative); PH, URINE 6.5 (5-7)
[2024-02-13 10:08] LABS: CRYSTALS, URINE NONE SEEN (0-1+); WHITE BLOOD CELLS, URINE 21-40 /HPF (0-5)
[2024-02-13 10:09] LABS: BACTERIA, URINE 3+ /hpf (negative); CASTS, URINE NONE SEEN \\lpf; COLLECTION TYPE, URINE CLEAN CATCH; REFLEX CULTURE, URINE No (No)
[2024-02-13] MEDS ORDERED: CEFDINIR 300 MG CAP PO ONE (10:30)
[2024-02-13] MEDS ORDERED: CEFDINIR300 MG PO (10:48)
[2024-02-13 11:05] VITALS: BP 174/81
--- NOTE | 2024-02-13 21:55 | EKG ---
[facility] [address] [facility] [place] [address] Signed Normal sinus rhythm Abnormal QRS-T angle, consider primary T wave abnormality Abnormal ECG When compared with ECG of 01-APR-2023 15:58, Minimal criteria for Anteroseptal infarct are no longer present Confirmed by Jose Fuller MD () on 02/13/2024 9:55:27 PM Electronically Signed By: JOSE FULLER MD 02/13/24 2155 PATIENT NAME: NATHAN LOVE Electrocardiogram DATE OF : 40 PHYSICIAN: JOSE FULLER MD REPORT #: [id number] REPORT IS CONFIDENTIAL AND NOT TO BE RELEASED WITHOUT AUTHORIZATION
== END 2024-02-13 11:03 | disposition home or self-care (01) ==
LOC: ED 08:12
PROVIDERS: Emergency Medicine
DX: R53.1 Weakness (principal); N39.0 Urinary tract infection, site not specified; I25.2 Old myocardial infarction; Z86.73 Personal history of transient ischemic attack (TIA), and cerebral infarction without residual deficits; Z88.2 Allergy status to sulfonamides; Z88.5 Allergy status to narcotic agent; Z91.02 Food additives allergy status; Z79.01 Long term (current) use of anticoagulants; Z79.899 Other long term (current) drug therapy; Z88.8 Allergy status to other drugs, medicaments and biological substances; Z79.890 Hormone replacement therapy
CPT/HCPCS: 36415; 80053; 81001; 82553; 83735; 84484; 85025; 87502; 93005; 93010; 99283; U0002

== ENCOUNTER 2024-04-13 02:42 | Emergency (ER) | payer MEDICARE, OTHER ==
[~2024-04-13] VITALS: Ht 170.2 cm; Wt 59.9 kg
[~2024-04-13 02:42] MED LIST changes: +ATORVASTATIN CA40 MG PO; +CEFDINIR300 MG PO; +COLESTIPOL HCL1 GM PO; +FLUTICASONE PRO16 GM NAS; +MEMANTINE HCL10 MG PO; +VENLAFAXINE HC150 MG PO; +ZYRTEC10 MG PO
[2024-04-13 03:23] LABS: BASOPHILS 0.4 % (0-2); EOSINOPHILS 0.8 % (0-6); HEMATOCRIT 38.1 % (35.0-50.0); HEMOGLOBIN 12.9 g/dL (12.0-18.0); LYMPHOCYTES 8.8 % (24-44); MCH 29.9 (27-36); MCHC 33.9 g/dl (30-36); MCV 88.2 fl (81-99); MONOCYTES 5.7 % (0-12); NEUTROPHILS 84.3 % (39-80); PLATELET COUNT 286 K/uL (140-440); RBC 4.32 M/ul (4.3-5.7); RDW 14.1 (10.5-15.0)
[2024-04-13 03:44] LABS: ALBUMIN 3.4 g/dL (3.4-5.0); ALBUMIN/GLOBULIN RATIO 1.03 (1.1-2.4); ANION GAP 13.1 (7-21); BILIRUBIN, TOTAL 0.4 ng/dL (0.2-1.0); BUN/CREATININE RATIO 21.53 (6.0-28.6); CALCIUM 8.2 mg/dL (8.5-10.1); CREATININE, SERUM 0.65 mg/dL (0.55-1.02); MAGNESIUM 1.7 mg/dL (1.8-2.4); POTASSIUM 3.1 mmol/L (3.5-5.1); PROTEIN, TOTAL 6.7 g/dL (6.4-8.2)
[2024-04-13 03:51] LABS: BILIRUBIN, URINE NEGATIVE (negative); BLOOD/HGB, URINE NEGATIVE (Negative); KETONE, URINE NEGATIVE (Negative); LEUK ESTERASE, URINE NEGATIVE (negative); NITRITE, URINE NEGATIVE (negative)
[2024-04-13] MEDS ORDERED: POTASSIUM CHLORIDE 10 MEQ TABCR PO ONE (04:00)
[2024-04-13] MEDS ORDERED: MAGNESIUM OXIDE 400 MG TABLET PO ONE (04:00)
[2024-04-13] MEDS ORDERED: LACTATED RINGER'S 1,000 ML IV ONE (04:00)
[2024-04-13 04:05] LABS: INFLUENZA B NAA NEGATIVE (NEGATIVE); RESPIRATORY SYNCYTIAL VIR NAA NEGATIVE (NEGATIVE)
[2024-04-13] MEDS ORDERED: K-TAB ER20 MEQ PO (04:49)
[2024-04-13] MEDS ORDERED: MAGNESIUM OXID400 M1 PO (04:49)
[2024-04-13 05:06] VITALS: BP 177/75
--- NOTE | 2024-04-13 20:36 | EKG ---
[facility] [address] [facility] [place] [address] Signed Normal sinus rhythm Septal infarct , age undetermined Abnormal ECG When compared with ECG of 13-FEB-2024 09:01, No significant change was found Confirmed by Branden Bowman DO ([id number]) on 04/13/2024 8:36:24 PM Electronically Signed By: BRANDEN BOWMAN DO 04/13/242035 PATIENT NAME: LOVENATHAN Electrocardiogram DATE OF : 40 PHYSICIAN: BRANDEN BOWMAN DO REPORT #: [id number] REPORT IS CONFIDENTIAL AND NOT TO BE RELEASED WITHOUT AUTHORIZATION
== END 2024-04-13 05:06 | disposition home or self-care (01) ==
LOC: ED 02:42
PROVIDERS: Internal Medicine
DX: R07.9 Chest pain, unspecified (principal); E87.6 Hypokalemia; E83.42 Hypomagnesemia; K21.9 Gastro-esophageal reflux disease without esophagitis; I25.2 Old myocardial infarction; Z86.73 Personal history of transient ischemic attack (TIA), and cerebral infarction without residual deficits; Z88.2 Allergy status to sulfonamides; Z88.5 Allergy status to narcotic agent; Z88.8 Allergy status to other drugs, medicaments and biological substances; Z91.02 Food additives allergy status; Z79.899 Other long term (current) drug therapy; Z79.01 Long term (current) use of anticoagulants; Z79.890 Hormone replacement therapy; Z11.52 Encounter for screening for COVID-19
CPT/HCPCS: 36415; 71045; 80053; 81003; 83735; 83880; 84484; 85025; 87502; 93005; 93010; 99285-25; A9270; J7121; U0002

== ENCOUNTER 2024-08-23 21:13 | Emergency (ER) | payer MEDICARE, OTHER ==
[~2024-08-23] VITALS: Ht 170.2 cm; Wt 66.6 kg
[~2024-08-23 21:13] MED LIST changes: +K-TAB ER20 MEQ PO; +MAGNESIUM OXID400 M1 PO
[2024-08-23 21:50] LABS: BILIRUBIN, URINE NEGATIVE (negative); BLOOD/HGB, URINE NEGATIVE (Negative); KETONE, URINE NEGATIVE (Negative); LEUK ESTERASE, URINE TRACE (negative); NITRITE, URINE POSITIVE (negative)
[2024-08-23 21:57] LABS: BACTERIA, URINE 2+ /hpf (negative); CASTS, URINE NONE SEEN \\lpf; CRYSTALS, URINE NONE SEEN (0-1+); EPITHELIAL CELLS, URINE SQUAMOUS 2+ /lpf (0-1+); WHITE BLOOD CELLS, URINE 41-50 /HPF (0-5)
[2024-08-23 21:58] LABS: COLLECTION TYPE, URINE CLEAN CATCH; REFLEX CULTURE, URINE No (No)
[2024-08-23 22:02] LABS: BASOPHILS 0.6 % (0-2); EOSINOPHILS 1.9 % (0-6); HEMOGLOBIN 12.8 g/dL (12.0-18.0); LYMPHOCYTES 10.8 % (24-44); MCH 29.9 (27-36); MCHC 34.7 g/dl (30-36); MCV 86.1 fl (81-99); MONOCYTES 8.5 % (0-12); NEUTROPHILS 78.2 % (39-80); PLATELET COUNT 255 K/uL (140-440); RDW 14.3 (10.5-15.0)
[2024-08-23 22:18] LABS: ALBUMIN/GLOBULIN RATIO 0.86 (1.1-2.4); ANION GAP 9.7 (7-21); BILIRUBIN, TOTAL 0.5 mg/dL (0.2-1.0); BUN/CREATININE RATIO 16.9 (6.0-28.6); CALCIUM 8.6 mg/dL (8.5-10.1); CREATININE, SERUM 0.71 mg/dL (0.55-1.02); POTASSIUM 3.7 mmol/L (3.5-5.1); PROTEIN, TOTAL 6.5 g/dL (6.4-8.2)
[2024-08-23 22:21] LABS: LACTIC ACID, BLOOD 0.8 mmol/L (0.4-2.0)
[2024-08-23] MEDS ORDERED: ACETAMINOPHEN 500 MG TAB PO ONE (22:30)
[2024-08-23] MEDS ORDERED: CEFTRIAXONE SODIUM 2 GM in SODIUM CHLORIDE 0.9% 100 ML IV ONE (22:30)
[2024-08-23] MEDS ORDERED: LEVOFLOXACIN500 MG PO (23:09)
[2024-08-23 23:12] VITALS: BP 175/78
--- NOTE | 2024-08-24 14:38 | EKG ---
[facility] [address] [facility] [place] [address] Signed Sinus tachycardia Anteroseptal infarct (cited on or before 01-APR-2023) Abnormal ECG When compared with ECG of 13-APR-2024 02:50, Questionable change in initial forces of Anterior leads Confirmed by Branden Bowman DO ([id number]) on 08/24/2024 2:38:24 PM Electronically Signed By: BRANDEN BOWMAN DO 08/24/24 1438 PATIENT NAME: NATHAN LOVE Electrocardiogram DATE OF : 40 PHYSICIAN: BRANDEN BOWMAN DO REPORT #: [id number] REPORT IS CONFIDENTIAL AND NOT TO BE RELEASED WITHOUT AUTHORIZATION
== END 2024-08-23 23:18 | disposition home or self-care (01) ==
LOC: ED 21:13
PROVIDERS: Emergency Medicine
DX: N39.0 Urinary tract infection, site not specified (principal); I25.2 Old myocardial infarction; K21.9 Gastro-esophageal reflux disease without esophagitis; I48.91 Unspecified atrial fibrillation; Z88.8 Allergy status to other drugs, medicaments and biological substances; Z88.2 Allergy status to sulfonamides; Z88.5 Allergy status to narcotic agent; Z79.82 Long term (current) use of aspirin
CPT/HCPCS: 36415; 71045; 80053; 81001; 83605; 84484; 85025; 93005; 93010; 96365; 99285-25; A9270; J0696

== ENCOUNTER 2024-10-09 19:39 | Emergency (ER) | payer MEDICARE, OTHER ==
[~2024-10-09] VITALS: Ht 170.2 cm; Wt 68.7 kg
--- OUTSIDE RECORDS SUMMARY | ~2024-10-09 | XMS | Continuity of Care Document ---
Demographics + + + | Address | [address] | | | [place] [address] | + + + | Preferred Language | Unknown | + + + | Marital Status | Unknown | + + + | Congregation Affiliation | Unknown | + + + | Race | White | + + + | Ethnic Group | Not or | + + + Author + + + | Author | [facility] | + + + | Organization | [facility] | + + + | Address | [address] | | | [place] [address] | + + + | Phone | | + + + Care Team Providers + + + + | Care Catalogue Compiler Name | Role | Phone | + [...]
[~2024-10-09 19:39] MED LIST changes: +LEVOFLOXACIN500 MG PO
[2024-10-09 20:15] LABS: BASOPHILS 0.9 % (0.1-1.2); EOSINOPHILS 3.5 % (0.7-5.8); HEMATOCRIT 35.6 % (34.1-44.9); HEMOGLOBIN 11.8 g/dL (11.2-15.7); LYMPHOCYTES 36.8 % (19.3-51.7); MCH 29.6 PG (25.6-32.2); MCHC 33.1 g/dL (32.2-35.5); MCV 89.4 fL (79.4-94.8); MONOCYTES 9.1 % (4.7-12.5); NEUTROPHILS 49.5 % (34.0-71.1); PLATELET COUNT 282 K/uL (182-369); RBC 3.98 M/uL (3.93-5.22)
[2024-10-09 20:25] LABS: ALBUMIN 3.2 g/dL (3.4-5.0); ALBUMIN/GLOBULIN RATIO 1.1 (1.1-2.4); BILIRUBIN, TOTAL 0.2 mg/dL (0.2-1.0); CALCIUM 8.8 mg/dL (8.5-10.1); CREATININE, SERUM 0.8 mg/dL (0.55-1.02); MAGNESIUM 1.9 mg/dL (1.8-2.4); PROTEIN, TOTAL 6.1 g/dL (6.4-8.2)
[2024-10-09 20:41] LABS: BILIRUBIN, URINE NEGATIVE (negative); BLOOD/HGB, URINE NEGATIVE (Negative); KETONE, URINE NEGATIVE (Negative); LEUK ESTERASE, URINE NEGATIVE (negative); NITRITE, URINE NEGATIVE (negative)
[2024-10-09 23:27] VITALS: BP 150/76
== END 2024-10-09 23:27 | disposition home or self-care (01) ==
LOC: ED 19:39
PROVIDERS: Family Medicine
DX: R53.1 Weakness (principal); I25.2 Old myocardial infarction; K21.9 Gastro-esophageal reflux disease without esophagitis; E03.9 Hypothyroidism, unspecified; Z79.899 Other long term (current) drug therapy; Z79.51 Long term (current) use of inhaled steroids; Z88.2 Allergy status to sulfonamides; Z88.5 Allergy status to narcotic agent; Z88.8 Allergy status to other drugs, medicaments and biological substances; Z86.73 Personal history of transient ischemic attack (TIA), and cerebral infarction without residual deficits
CPT/HCPCS: 36415; 70450; 80053; 81003; 83735; 85025; 99285-25

== ENCOUNTER 2024-11-04 15:22 | Emergency (ER) | payer MEDICARE, OTHER ==
[~2024-11-04] VITALS: Ht 170.2 cm; Wt 64.7 kg
--- OUTSIDE RECORDS SUMMARY | ~2024-11-04 | XMS | Continuity of Care Document ---
Demographics + + + | Address | [address] | | | [place] [address] | + + + | Preferred Language | Unknown | + + + | Marital Status | Unknown | + + + | Voodoo Affiliation | Unknown | + + + | Race | White | + + + | Ethnic Group | Not or | + + + Author + + + | Author | [facility] | + + + | Organization | [facility] | + + + | Address | [address] | | | [place] [address] | + + + | Phone | | + + + Care Team Providers + + + + | Care Licensed Nuclear Operator Name | Role | Phone | + + + + Unavailable | Unavailable | + + + + Allergies No information. Encounters No information. Functional Status No information. Immunizations No information. Medications No information. 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 Results/Labs No information. Social History +--------+ + + | date | description | facility | +--------+ + + Vital Signs No information."
[2024-11-04 15:37] LABS: BLOOD/HGB, URINE NEGATIVE (Negative); KETONE, URINE NEGATIVE (Negative); LEUK ESTERASE, URINE NEGATIVE (negative); NITRITE, URINE NEGATIVE (negative)
[2024-11-04] MEDS ORDERED: IBLOOD GLUCOSE TEST STRIP 1 EA TEST XX ONE (16:00)
[2024-11-04 16:04] LABS: BASOPHILS 0.8 % (0.1-1.2); EOSINOPHILS 3.1 % (0.7-5.8); LYMPHOCYTES 40.1 % (19.3-51.7); MCH 29.7 PG (25.6-32.2); MCHC 33.4 g/dL (32.2-35.5); MCV 88.9 fL (79.4-94.8); MONOCYTES 7.8 % (4.7-12.5); NEUTROPHILS 48.0 % (34.0-71.1); RBC 4.14 M/uL (3.93-5.22)
[2024-11-04 16:28] LABS: ALT (SGPT) 27.0 U/L (14-59); AST (SGOT) 13.0 U/L (15-37); GLOMERULAR FILTRATION RATE,EST 86.0 mL/min (>60); PROTEIN, TOTAL 6.5 g/dL (6.4-8.2); UREA NITROGEN 23.0 mg/dL (7-18)
[2024-11-04] MEDS ORDERED: SODIUM CHLORIDE 0.9% 1,000 ML IV PRN (16:45)
[2024-11-04 17:35] VITALS: BP 166/78
--- NOTE | 2024-11-05 22:33 | EKG ---
[facility] [address] [place] [address] Signed Normal sinus rhythm Septal infarct (cited on or before 01-APR-2023) Inferior infarct , age undetermined Abnormal ECG When compared with ECG of 23-AUG-2024 21:37, Inferior infarct is now present Questionable change in initial forces of Anterior leads Confirmed by Jose Fuller MD () on 11/05/2024 10:33:21 PM Electronically Signed By: JOSE FULLER MD 11/05/242232 PATIENT NAME: NATHAN LOVE Electrocardiogram DATE OF : 40 PHYSICIAN: JOSE FULLER MD REPORT #: [id number] REPORT IS CONFIDENTIAL AND NOT TO BE RELEASED WITHOUT AUTHORIZATION
== END 2024-11-04 17:40 | disposition home or self-care (01) ==
LOC: ED 15:22
PROVIDERS: Emergency Medicine
DX: R42 Dizziness and giddiness (principal); I25.2 Old myocardial infarction; K21.9 Gastro-esophageal reflux disease without esophagitis; Z86.73 Personal history of transient ischemic attack (TIA), and cerebral infarction without residual deficits; Z79.899 Other long term (current) drug therapy; Z79.51 Long term (current) use of inhaled steroids; Z88.2 Allergy status to sulfonamides; Z88.5 Allergy status to narcotic agent; Z91.018 Allergy to other foods; Z88.8 Allergy status to other drugs, medicaments and biological substances
CPT/HCPCS: 36415; 80053; 81003; 83735; 84484; 85025; 93005; 93010; 99284; J7030

== ENCOUNTER 2024-12-05 14:05 | Emergency (ER) | payer MEDICARE, OTHER ==
[~2024-12-05] VITALS: Ht 170.2 cm; Wt 66.0 kg
[~2024-12-05 14:05] MED LIST changes: +DIOVAN40 MG PO; -ISOSORBIDE MONO30 MG PO; +ISOSORBIDE MONO60 MG PO; -VALSARTAN80 MG PO
[2024-12-05] MEDS ORDERED: DICLOFENAC EPO1 EACH TD (14:30)
[2024-12-05 15:35] LABS: BASOPHILS 0.8 % (0.1-1.2); EOSINOPHILS 3.9 % (0.7-5.8); LYMPHOCYTES 39.0 % (19.3-51.7); MCH 30.0 PG (25.6-32.2); MCHC 34.6 g/dL (32.2-35.5); MCV 86.6 fL (79.4-94.8); MONOCYTES 8.6 % (4.7-12.5); NEUTROPHILS 47.5 % (34.0-71.1); RBC 3.97 M/uL (3.93-5.22)
[2024-12-05 15:41] LABS: BLOOD/HGB, URINE NEGATIVE (Negative); KETONE, URINE NEGATIVE (Negative); LEUK ESTERASE, URINE NEGATIVE (negative); NITRITE, URINE NEGATIVE (negative)
[2024-12-05 15:51] LABS: CORONAVIRUS COVID-19 AG NEGATIVE (NEGATIVE)
[2024-12-05 15:53] LABS: ALT (SGPT) 16.0 U/L (14-59); AST (SGOT) 11.0 U/L (15-37); GLOMERULAR FILTRATION RATE,EST 91.0 mL/min (>60); PROTEIN, TOTAL 5.9 g/dL (6.4-8.2); UREA NITROGEN 18.0 mg/dL (7-18)
[2024-12-05 16:52] VITALS: BP 153/89
== END 2024-12-05 16:52 | disposition home or self-care (01) ==
LOC: ED 14:05
PROVIDERS: Emergency Medicine
DX: J06.9 Acute upper respiratory infection, unspecified (principal); I48.91 Unspecified atrial fibrillation; I25.2 Old myocardial infarction; E03.9 Hypothyroidism, unspecified; Z86.73 Personal history of transient ischemic attack (TIA), and cerebral infarction without residual deficits; Z91.018 Allergy to other foods; Z88.2 Allergy status to sulfonamides; Z88.8 Allergy status to other drugs, medicaments and biological substances; Z88.5 Allergy status to narcotic agent; Z79.01 Long term (current) use of anticoagulants; Z79.890 Hormone replacement therapy; Z79.899 Other long term (current) drug therapy
CPT/HCPCS: 36415; 71045; 80053; 81003; 85025; 99285-25

== ENCOUNTER 2025-02-19 22:05 | Emergency (ER) | payer OTHER, MEDICARE ==
[~2025-02-19] VITALS: Ht 170.2 cm; Wt 67.0 kg
[~2025-02-19 22:05] MED LIST changes: +DICLOFENAC EPO1 EACH TD
[2025-02-19 22:06] VITALS: BP 126/72
== END 2025-02-20 01:26 | disposition home or self-care (01) ==
LOC: ED 22:05
DX: S00.03XA Contusion of scalp, initial encounter (principal); K21.9 Gastro-esophageal reflux disease without esophagitis; I95.9 Hypotension, unspecified; Z86.73 Personal history of transient ischemic attack (TIA), and cerebral infarction without residual deficits; W54.1XXA Struck by dog, initial encounter; Z79.51 Long term (current) use of inhaled steroids; Z79.899 Other long term (current) drug therapy; Z91.018 Allergy to other foods; Z88.2 Allergy status to sulfonamides; Z88.5 Allergy status to narcotic agent; Z88.8 Allergy status to other drugs, medicaments and biological substances
CPT/HCPCS: 70450; 72125; 99283-25